=== PATIENT | male | born 1995 | race Caucasian/White ===

== ENCOUNTER 2018-01-15 09:37 | Emergency (ER) | payer MEDICAID ==
[~2018-01-15] VITALS: Ht 185.4 cm; Wt 81.8 kg
[~2018-01-15 09:37] MED LIST: DIVA-81 PO; NO HOME MEDS
[2018-01-15 09:40] VITALS: BP 170/86
[2018-01-15 10:39] LABS: BASOPHILS % (AUTO) 0.4 % (0-1); EOSINOPHILS # (AUTO) 0.1 X10'3 (0-0.9); HEMOGLOBIN 14.2 g/dl (14.0-17.9); LYMPHOCYTES # (AUTO) 1.3 X10'3 (1.1-4.8); LYMPHOCYTES % (AUTO) 19.6 % (21-51); MEAN CORPUSCULAR HGB CONC 33.8 % (33.0-36.5); MEAN CORPUSCULAR VOLUME 91.9 FL (78-98); MEAN PLATELET VOLUME 8.1 FL (7.4-10.4); MONOCYTES # (AUTO) 0.3 X10'3 (0-0.9); MONOCYTES % (AUTO) 5.1 % (2-12); NEUTROPHILS # (AUTO) 4.8 X10'3 (1.8-7.7); NEUTROPHILS % (AUTO) 73.9 % (42-75); PLATELET COUNT 218 X10'3 (140-440); RED BLOOD COUNT 4.57 X10'6 (4.70-6.10); RED CELL DISTRIBUTION WIDTH 13.1 % (11.5-14.5); WHITE BLOOD COUNT 6.4 X10'3 (4.5-11.0)
[2018-01-15 10:54] LABS: ALANINE AMINOTRANSFERASE 32 U/L (12-78); ALBUMIN 4.3 G/DL (3.4-5.0); ALBUMIN/GLOBULIN RATIO 1.4 (1.1-1.5); ALKALINE PHOSPHATASE 45 IU/L (46-116); ANION GAP 11 (8-16); ASPARTATE AMINO TRANSFERASE 41 U/L (10-37); BILIRUBIN,TOTAL 0.4 MG/DL (0.1-1.0); BLOOD UREA NITROGEN 9 MG/DL (7-18); BUN/CREATININE RATIO 13.8 (5.4-32.0); CALCIUM 8.6 MG/DL (8.5-10.1); CHLORIDE 102 MMOL/L (99-107); CREATININE 0.65 MG/DL (0.60-1.10); GLUCOSE 85 MG/DL (70-104); POTASSIUM 3.6 MMOL/L (3.5-5.1); SODIUM 141 MMOL/L (135-145); TOTAL CARBON DIOXIDE 28.1 MMOL/L (24-32); TOTAL PROTEIN 7.3 G/DL (6.4-8.2); eGFR > 90 ML/MIN
[2018-01-15 11:01] LABS: CLARITY,URINE CLEAR (Clear); COLOR,URINE YELLOW (Yellow); GLUCOSE, URINE NEGATIVE (Neg); KETONES,URINE NEGATIVE (Neg); LEUKOCYTE ESTERASE ,URINE NEGATIVE (Neg); NITRITES, URINE NEGATIVE (Neg); OCCULT BLOOD,URINE NEGATIVE (Neg); PROTEIN,URINE NEGATIVE (Neg)
[2018-01-15 11:03] LABS: ETHANOL 0.013 GM/DL (0.0-0.010)
[2018-01-15 11:03] LABS: UA COLLECTION TYPE CLN CATCH MIDSTREAM
[2018-01-15 11:04] LABS: VALPROATE < 3.0 UG/ML (50-100)
[2018-01-15 11:17] LABS: URINE AMPHETAMINE SCREEN NEGATIVE (Neg); URINE BARBITUATE SCREEN NEGATIVE (Neg); URINE BENZODIAZEPINES SCREEN NEGATIVE (Neg); URINE CANNABINOID SCREEN POSITIVE (Neg); URINE COCAINE SCREEN NEGATIVE (Neg); URINE METHADONE SCREEN NEGATIVE (Neg); URINE OPIATE SCREEN NEGATIVE (Neg); URINE PHENCYCLIDINE SCREEN NEGATIVE (Neg)
== END 2018-01-15 14:04 | disposition home or self-care (01) ==
LOC: ER 09:38
DX: F20.9 Schizophrenia, unspecified (principal); F31.9 Bipolar disorder, unspecified; F12.90 Cannabis use, unspecified, uncomplicated; Z88.8 Allergy status to other drugs, medicaments and biological substances
CPT/HCPCS: 36415; 80053; 80164; 80305; 80320; 81003; 84443; 85025; 99284

== ENCOUNTER 2018-01-31 22:26 | Emergency (ER) | payer MEDICAID ==
[~2018-01-31] VITALS: Ht 185.4 cm; Wt 70.0 kg
[2018-01-31 22:28] VITALS: BP 137/75
[2018-01-31 23:10] LABS: BASOPHILS # (AUTO) 0.1 X10'3 (0-0.2); BASOPHILS % (AUTO) 0.6 % (0-1); EOSINOPHILS # (AUTO) 0.3 X10'3 (0-0.9); EOSINOPHILS % (AUTO) 2.3 % (0-6); HEMATOCRIT 41.6 % (42.0-52.0); LYMPHOCYTES # (AUTO) 1.3 X10'3 (1.1-4.8); LYMPHOCYTES % (AUTO) 11.9 % (21-51); MEAN CORPUSCULAR HEMOGLOBIN 31.3 PG (27.0-31.0); MEAN CORPUSCULAR HGB CONC 33.5 % (33.0-36.5); MEAN CORPUSCULAR VOLUME 93.3 FL (78-98); MONOCYTES # (AUTO) 0.9 X10'3 (0-0.9); MONOCYTES % (AUTO) 8.4 % (2-12); NEUTROPHILS # (AUTO) 8.3 X10'3 (1.8-7.7); NEUTROPHILS % (AUTO) 76.8 % (42-75); PLATELET COUNT 203 X10'3 (140-440); RED BLOOD COUNT 4.46 X10'6 (4.70-6.10); RED CELL DISTRIBUTION WIDTH 14.1 % (11.5-14.5); WHITE BLOOD COUNT 10.9 X10'3 (4.5-11.0)
[2018-01-31 23:26] LABS: ALANINE AMINOTRANSFERASE 59 U/L (12-78); ALBUMIN/GLOBULIN RATIO 1.3 (1.1-1.5); ALKALINE PHOSPHATASE 46 IU/L (46-116); ANION GAP 7 (8-16); ASPARTATE AMINO TRANSFERASE 53 U/L (10-37); BILIRUBIN,TOTAL 0.4 MG/DL (0.1-1.0); BLOOD UREA NITROGEN 18 MG/DL (7-18); BUN/CREATININE RATIO 19.6 (5.4-32.0); CALCIUM 8.7 MG/DL (8.5-10.1); CHLORIDE 107 MMOL/L (99-107); CREATININE 0.92 MG/DL (0.60-1.10); GLUCOSE 107 MG/DL (70-104); POTASSIUM 3.7 MMOL/L (3.5-5.1); SODIUM 142 MMOL/L (135-145); TOTAL CARBON DIOXIDE 27.8 MMOL/L (24-32); eGFR > 90 ML/MIN
[2018-01-31 23:36] LABS: ETHANOL < 0.010 GM/DL (0.0-0.010)
== END 2018-01-31 23:55 | disposition home or self-care (01) ==
LOC: ER 22:27
DX: S60.811A Abrasion of right wrist, initial encounter (principal); K02.9 Dental caries, unspecified; F12.90 Cannabis use, unspecified, uncomplicated; F17.200 Nicotine dependence, unspecified, uncomplicated; F32.9 Major depressive disorder, single episode, unspecified; F20.9 Schizophrenia, unspecified; Z88.8 Allergy status to other drugs, medicaments and biological substances; Z79.899 Other long term (current) drug therapy; X58.XXXA Exposure to other specified factors, initial encounter; Y93.89 Activity, other specified; Y92.89 Other specified places as the place of occurrence of the external cause; Y99.8 Other external cause status
CPT/HCPCS: 36415; 80053; 80320; 84443; 85025; 99284

== ENCOUNTER 2018-02-01 11:29 | Emergency (ER) | payer MEDICAID ==
[~2018-02-01] VITALS: Ht 185.4 cm; Wt 75.0 kg
[2018-02-01 12:15] LABS: CLARITY,URINE CLEAR (Clear); COLOR,URINE YELLOW (Yellow); GLUCOSE, URINE NEGATIVE (Neg); KETONES,URINE TRACE mg/dl (Neg); LEUKOCYTE ESTERASE ,URINE NEGATIVE (Neg); NITRITES, URINE NEGATIVE (Neg); OCCULT BLOOD,URINE NEGATIVE (Neg); PROTEIN,URINE 30 mg/dl (Neg); UROBILINOGEN,URINE 0.2 E.U/dL (0.2-1.0)
[2018-02-01] MEDS ORDERED: diphenhydrAMINE 50 mg/ml inj IM ONE (12:15)
[2018-02-01] MEDS ORDERED: LORazepam 2 mg/ml vial IM ONE (12:15)
[2018-02-01 12:17] LABS: UA COLLECTION TYPE CLN CATCH MIDSTREAM
[2018-02-01] MEDS: LORazepam 1 MG tablet PO PRN (12:18)
[2018-02-01 12:20] LABS: ALANINE AMINOTRANSFERASE 63 U/L (12-78); ALBUMIN 4.2 G/DL (3.4-5.0); ALBUMIN/GLOBULIN RATIO 1.3 (1.1-1.5); ALKALINE PHOSPHATASE 48 IU/L (46-116); ANION GAP 8 (8-16); ASPARTATE AMINO TRANSFERASE 50 U/L (10-37); BILIRUBIN,TOTAL 0.4 MG/DL (0.1-1.0); BLOOD UREA NITROGEN 14 MG/DL (7-18); BUN/CREATININE RATIO 19.2 (5.4-32.0); CALCIUM 8.9 MG/DL (8.5-10.1); CHLORIDE 104 MMOL/L (99-107); CREATININE 0.73 MG/DL (0.60-1.10); GLUCOSE 89 MG/DL (70-104); POTASSIUM 3.8 MMOL/L (3.5-5.1); SODIUM 140 MMOL/L (135-145); TOTAL CARBON DIOXIDE 28.2 MMOL/L (24-32); TOTAL PROTEIN 7.5 G/DL (6.4-8.2); eGFR > 90 ML/MIN
[2018-02-01 12:26] LABS: URINE AMPHETAMINE SCREEN NEGATIVE (Neg); URINE BARBITUATE SCREEN NEGATIVE (Neg); URINE BENZODIAZEPINES SCREEN NEGATIVE (Neg); URINE CANNABINOID SCREEN POSITIVE (Neg); URINE COCAINE SCREEN NEGATIVE (Neg); URINE METHADONE SCREEN NEGATIVE (Neg); URINE OPIATE SCREEN NEGATIVE (Neg); URINE PHENCYCLIDINE SCREEN NEGATIVE (Neg)
[2018-02-01 12:36] LABS: BACTERIA,URINE FEW /HPF (Neg); MUCUS STRANDS MANY /LPF (Neg); RBC,URINE NONE SEEN /HPF (0-2); SQUAMOUS EPITHELIAL CELL,UR FEW /LPF (FEW)
[2018-02-01] MEDS ORDERED: OLANZapine **IM** 10 mg inj. IM ONE (13:05)
[2018-02-01 13:33] LABS: BASOPHILS % (AUTO) 0.4 % (0-1); EOSINOPHILS # (AUTO) 0.2 X10'3 (0-0.9); EOSINOPHILS % (AUTO) 2.5 % (0-6); HEMATOCRIT 42.8 % (42.0-52.0); HEMOGLOBIN 14.7 g/dl (14.0-17.9); LYMPHOCYTES # (AUTO) 1.8 X10'3 (1.1-4.8); LYMPHOCYTES % (AUTO) 21.4 % (21-51); MEAN CORPUSCULAR HEMOGLOBIN 31.4 PG (27.0-31.0); MEAN CORPUSCULAR HGB CONC 34.4 % (33.0-36.5); MEAN CORPUSCULAR VOLUME 91.3 FL (78-98); MEAN PLATELET VOLUME 8.8 FL (7.4-10.4); MONOCYTES # (AUTO) 1.1 X10'3 (0-0.9); MONOCYTES % (AUTO) 12.9 % (2-12); NEUTROPHILS # (AUTO) 5.2 X10'3 (1.8-7.7); NEUTROPHILS % (AUTO) 62.8 % (42-75); PLATELET COUNT 217 X10'3 (140-440); RED BLOOD COUNT 4.68 X10'6 (4.70-6.10); RED CELL DISTRIBUTION WIDTH 13.8 % (11.5-14.5); WHITE BLOOD COUNT 8.3 X10'3 (4.5-11.0)
[2018-02-01 15:13] LABS: ETHANOL < 0.010 GM/DL (0.0-0.010)
[2018-02-02] MEDS: LORazepam 1 MG tablet PO PRN (05:35)
[2018-02-02 05:47] VITALS: BP 118/84
[2018-02-02] MEDS ORDERED: diphenhydrAMINE 25mg capsule PO ONE (06:45)
[2018-02-02] MEDS ORDERED: LORazepam 1 MG tablet PO ONE (06:45)
[2018-02-02] MEDS: OLANZapine 2.5MG tablet PO SCH ×2 (08:03→11:25)
[2018-02-03] MEDS ORDERED: OLANZapine 2.5MG tablet PO SCH (08:00)
== END 2018-02-02 11:30 ==
LOC: ER 11:30
DX: F23 Brief psychotic disorder (principal); F31.9 Bipolar disorder, unspecified; F12.90 Cannabis use, unspecified, uncomplicated; Z98.890 Other specified postprocedural states; Z88.8 Allergy status to other drugs, medicaments and biological substances; Z79.899 Other long term (current) drug therapy; Z88.5 Allergy status to narcotic agent
CPT/HCPCS: 36415; 80053; 80305; 80320; 81001; 85025; 87088; 96372; 99285; J1200; J2060; Q0163

== ENCOUNTER 2019-10-29 08:07 | Inpatient (IN) | payer MEDICAID ==
[~2019-10-29] VITALS: Ht 185.4 cm; Wt 92.0 kg
[~2019-10-29 08:07] MED LIST changes: +ARIP5TAB14 PO; +CHOL50004 PO; +CLON-514 PO; -DIVA-81 PO; +LIT300C PO; +NICO-731 TOP; -NO HOME MEDS; +TEMA15CA PO
[2019-10-29] MEDS ORDERED: loperamide 2mg capsule PO PRN (18:45)
[2019-10-29] MEDS ORDERED: LORazepam 1 MG tablet PO PRN (18:45)
[2019-10-29] MEDS ORDERED: acetaminophen 325mg tablet PO PRN (18:45)
[2019-10-29] MEDS ORDERED: traZODone 50mg tablet PO PRN (18:45)
[2019-10-29] MEDS ORDERED: magnesium hydroxide 30ml (MOM) UD suspension PO PRN (18:45)
[2019-10-29 19:52] VITALS: BP 145/85
[2019-10-29] MEDS ORDERED: DIVA-81 PO (20:06)
[2019-10-29] MEDS ORDERED: CLOM25CA10 PO (20:06)
[2019-10-29] MEDS ORDERED: HYDR50CA PO (20:06)
[2019-10-29] MEDS ORDERED: ZOLP5TAB2 PO (20:06)
[2019-10-29] MEDS ORDERED: IBUP-1984 PO (20:06)
[2019-10-29] MEDS ORDERED: LITH150C8 PO (20:06)
[2019-10-29] MEDS ORDERED: DIPH25CA83 PO (20:06)
[2019-10-29] MEDS ORDERED: zolpidem 5mg tablet PO PRN (20:30)
[2019-10-29] MEDS ORDERED: diphenhydrAMINE 25mg capsule PO PRN (20:30)
[2019-10-29] MEDS ORDERED: divalproex sod 250mg ER (24-hour) tablet PO ONE (20:35)
[2019-10-29] MEDS ORDERED: lithium carbonate 150mg capsule PO ONE (20:35)
[2019-10-29] MEDS: CLOMIPRAMINE 25 MG PO SCH (21:31)
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
[2019-10-30 07:00] VITALS: BP 144/81
[2019-10-30] MEDS: divalproex sod 250mg ER (24-hour) tablet PO SCH ×2 (08:00→20:36)
[2019-10-30] MEDS: lithium carbonate 150mg capsule PO SCH ×2 (08:02→20:35)
--- NOTE | 2019-10-30 10:00 | NUR ---
Group Therapy: Process Group This Clinicians goal for this process group were as follows: (1) Ask scaling questions about Patients current anxiety, depression, and irritability symptoms as a check-in. (2) Provide psychoeducation on emotional and situational stressors. (3) Discuss thoughts and feelings that patients experience when they have experienced an emotional and/or situational stressor. (4) Provide psychoeducation on interventions, as actions patients can take to reduce feelings of emotional escalation caused by situational and emotional stressors. (5) Process Patients thoughts and reflections on this topic within the group milieu. Patient identified experiencing the following levels of anxiety, depression, and anger/irritability while present in the group milieu. Anxiety: 04/26 Depression: 04/26 Anger/irritability: 04/26 Patient presented as open and cooperative within the group milieu. Patient was dressed in [facility] scrubs within the milieu. Patient's thought content was clear and concrete. Patient's thought process was clear. On one occasion during the discussion on stressful situations and interventions that one could utilize to reduce unwanted mental health symptoms, this Clinician was sharing different feelings that one might experience when one feels hunger. Patient refused to acknowledge that several feelings that this Clinician had wrote on the board were actually feelings. This Clinician made several attempts to clarify that the feelings that he wrote on the board were, in fact, feelings and not thoughts. Patient continued to deny that they were feelings, to which this Clinician responded "We'll have to agree to disagree." Patient presented as verbally engaged and nonobtrusive within the milieu. He frequently shari his hand to make comments during discussion in the process group. Marcus Kennedy MA, [employer] Addendum: 10/31/19 at 0823 by Marcus Kennedy Amended: Links added.
[2019-10-30 12:54] LABS: CHOL/HDL RATIO 2.7 (0.00-4.99); CHOLESTEROL 122 MG/DL (0-200); HDL CHOLESTEROL 45 MG/DL (35-60); LDL CHOLESTEROL 64 MG/DL (50-100); TRIGLYCERIDES 102 MG/DL (20-135)
[2019-10-30 12:58] LABS: HEMOGLOBIN A1C 5.3 % (4.5-6.2)
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
[2019-10-30] MEDS: CLOMIPRAMINE 25 MG PO SCH (20:37)
[2019-10-30 20:51] VITALS: BP 144/86
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
[2019-10-31 08:00] VITALS: BP 126/85
[2019-10-31] MEDS: divalproex sod 250mg ER (24-hour) tablet PO SCH ×2 (08:23→20:57)
[2019-10-31] MEDS: lithium carbonate 150mg capsule PO SCH ×2 (08:24→20:58)
--- NOTE | 2019-10-31 10:00 | NUR ---
Group Therapy: Process Group This Clinicians goals for this process group were as follows: (1) Ask scaling questions about Patients current anxiety, depression, and irritability symptoms as a check-in. (2) Share with Patients psychoeducation about the importance of being able to identify safe, and supportive people who can assist them with their mental and emotional needs. (3) Share psychoeducation on interpersonal boundaries and considerations to assist Patients in developing the ability to discern which groups and individuals will be helpful in assisting them during times of emotional escalation and crisis. (4) Engage Patients in discussion of the topics discussed within the group milieu. Patient identified experiencing the following levels of anxiety, depression, and anger/irritability while present in the group milieu. Anxiety: 04/26 Depression: 04/26 Anger/irritability: 04/26 Patient presented as open and cooperative within the group milieu. Patient was dressed in green hospital scrubs within the milieu. Patient's thought content was clear and concrete. Patient's thought process was clear, coherent, and largely linear, with occasional circumstantial thinking--Patient verbalized that he had difficultly succinctly articulating his points on occasion. Patient presented as verbally engaged and nonobtrusive during the discussion on awareness of interpersonal boundaries as it relates to identifying safe and supportive people with whom one could share specifics of their mental health situation. Patient verbalized his belief that the acquaintance, neighbor, coworker "[place]" was one of the most essential in knowing what to say about your mental health situation as these conversations could reveal whether or not someone could become more of an advocate for them in their mental health journey, or if they revealed that a person could not be trusted with this information. Patient shared that even with therapists, or medical support specialist he will often ask questions or present himself in a way as if he were "testing them" to see if they actually cared, or if they would do what they say they are going to do. When asked who Patient trusted most in sharing elements of his mental health situation, Patient stated, "Myself." Marcus Kennedy MA, [facility] Addendum: 10/31/19 at 1150 by Marcus ARANA Amended: Links added.
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
[2019-10-31 19:00] VITALS: BP 130/81
[2019-10-31] MEDS: CLOMIPRAMINE 25 MG PO SCH (20:59)
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
[2019-11-01 08:00] VITALS: BP 135/83
[2019-11-01] MEDS: lithium carbonate 150mg capsule PO SCH ×2 (08:12→21:15)
[2019-11-01] MEDS: divalproex sod 250mg ER (24-hour) tablet PO SCH ×2 (08:12→21:32)
--- NOTE | 2019-11-01 10:00 | NUR ---
Group Therapy: Process Group This Clinicians goals for this process group were as follows: (1) Ask scaling questions about Patients current anxiety, depression, and irritability symptoms as a check-in. (2) Share psychoeducation about automatic thoughts and cognitive distortions. (3) Share psychoeducation on CBT thought-stopping and, thought-reframing. (4) Discuss strategies for identifying negative, unhelpful, and/or irrational thoughts as quickly as possible to avoid unwanted escalation of mental health symptoms. (5) Process Clients thoughts and reflections on this topic within the group milieu. Patient identified experiencing the following levels of anxiety, depression, and anger/irritability while present in the group milieu. Anxiety: 0/10 Depression: 0/10 Anger/irritability: 0/10 Patient presented as open and cooperative within the group milieu. Patient was dressed in green hospital scrubs within the milieu. Patient's thought content was clear, and concrete. Patient's thought process was clear, coherent and linear. This Clinician observed some circumstantial thinking, as Patient occasionally took a bit of time to conclude his points. Patient presented as verbally engaged and nonobtrusive within the group milieu. He frequently made insightful comments about identifying cognitive distortions and acknowledged the role they played in setting off cascades of subsequent thoughts, feelings and actions that could lead to the increase in unwanted mental health symptoms. Patient spent time seated next to another Patient, engaged in drawing and coloring activities, which was not disruptive to the overall group process. Marcus eKnnedy MA, VICKY Addendum: 11/04/19 at 0806 by Marcus Kennedy SS Amended: Links added.
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
[2019-11-01 20:00] VITALS: BP 134/94
[2019-11-01] MEDS: CLOMIPRAMINE 25 MG PO SCH (21:14)
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
[2019-11-02 08:00] VITALS: BP 131/79
[2019-11-02] MEDS: lithium carbonate 150mg capsule PO SCH ×2 (08:51→21:00)
[2019-11-02] MEDS: divalproex sod 250mg ER (24-hour) tablet PO SCH ×2 (08:51→21:00)
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
[2019-11-02 20:15] VITALS: BP 136/76
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
[2019-11-03 07:58] VITALS: BP 132/82
[2019-11-03] MEDS: lithium carbonate 150mg capsule PO SCH ×2 (08:14→20:14)
[2019-11-03] MEDS: divalproex sod 250mg ER (24-hour) tablet PO SCH ×2 (08:14→20:13)
--- NOTE | 2019-11-03 10:01 | NUR ---
Initial: Pt admit w/ schizoaffective disorder bipolar type hx homeless not taking meds w/ poor dentition per MD. PO 75-100% avg regular diet meeting needs. LBM 11/01. No nutrition concerns at this time. Will continue to monitor. Rec: 1. continue regular diet 2. bowel care as needed 3. wt per rx Addendum: 11/03/19 at [address] Amended: Links added.
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
[2019-11-03 20:00] VITALS: BP 142/86
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
[2019-11-04 08:00] VITALS: BP 106/55
[2019-11-04] MEDS: lithium carbonate 150mg capsule PO SCH ×2 (08:05→20:23)
[2019-11-04] MEDS: divalproex sod 250mg ER (24-hour) tablet PO SCH ×2 (08:05→20:23)
--- NOTE | 2019-11-04 10:00 | NUR ---
Group Therapy: Process Group This Clinicians goals for this process group were as follows: (1) Ask scaling questions about Patients current anxiety, depression, and irritability symptoms as a check-in. (2) Share psychoeducation about self-efficacy, and ego strength. (3) Provide psychoeducation on [email or web address] Drama triangleVictim, Persecutor, Rescuer dynamic. (4) Share psychoeducation on developing positive ego strengthpositive affirmations, positive self-talk, transitioning from a victim of circumstances to a survivor of circumstances. (5) Process Clients thoughts and reflections on this topic within the group milieu. Patient presented as open and cooperative within the group milieu. He wore personal, nondescript clothing--a dark blue printed t-shirt, and black jony jeans--that were appropriate within the milieu. Patient was not present at the beginning of the process group, therefore he did not provide answers to the scaling questions about his subjective levels of anxiety, depression, and anger/irritability. Patient's thought content was clear and concrete. Patient's thought process was clear, coherent, and linear. He made well-timed attempts at humor, which this Clinician appreciated as such. Patient was verbally engaged and nonobtrusive within the group milieu. He articulated an understanding of this Clinician's points when he articulated the importance of transitioning from a place of low ego strength, to positive ego strength; however, he verbalized his belief in the person's ability to transcend the ego, which this Clinician acknowledged as being a tenet that was common in certain spiritual traditions. Marcus Kennedy MA, WEB ANALYST Addendum: 11/04/19 at 1154 by Marcus Kennedy Amended: Links added.
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
[2019-11-04 20:44] VITALS: BP 135/73
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
[2019-11-05 08:00] VITALS: BP 129/64
[2019-11-05] MEDS: divalproex sod 250mg ER (24-hour) tablet PO SCH ×2 (08:20→20:20)
[2019-11-05] MEDS: lithium carbonate 150mg capsule PO SCH ×2 (08:20→20:23)
--- NOTE | 2019-11-05 13:35 | NUR ---
PLACEMENT Faxed placement packet to [facility] office. VICKY Madera
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
[2019-11-05] MEDS: lactose-reduced food (Ensure High Protein) 237ml bottle PO SCH (18:00)
[2019-11-05 20:00] VITALS: BP 140/88
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
[2019-11-06] MEDS: lactose-reduced food (Ensure High Protein) 237ml bottle PO SCH ×3 (08:00→18:32)
[2019-11-06 08:05] VITALS: BP 117/74
[2019-11-06] MEDS: divalproex sod 250mg ER (24-hour) tablet PO SCH ×2 (08:53→20:26)
[2019-11-06] MEDS: lithium carbonate 150mg capsule PO SCH ×2 (08:54→20:25)
--- NOTE | 2019-11-06 10:00 | NUR ---
Group Therapy: Process Group This Clinicians goals for this process group were as follows: (1) Ask scaling questions about Patients current anxiety, depression, and irritability symptoms as a check-in. (2) Share psychoeducation about the importance of being able to identify regular activities, support people, and thoughts (Anchors) that contribute to mental health well-being and stability. (3) Share psychoeducation about how the gradual removal of said activities, people and behaviors may lead to the erosion of mental well-being and stability. (4) Encourage Patients to identify support anchors that they need to maintain in their life that will promote their mental and emotional well-being. (5) Engage Patients in discussion of the topics shared within the group milieu. Patient identified experiencing the following levels of anxiety, depression, and anger/irritability while present in the group milieu. Anxiety: 0/10 Depression: 0/10 Anger/irritability: 0/10 Patient presented as open and cooperative within the group milieu. Patient was dressed in nondescript, personal clothing that were appropriate within the milieu. Patient's thought content was clear, and concrete. Patient's thought process was clear, coherent, and linear. Patient maintained sustained eye contact with this Clinician. His speech was WNL. He presented in calm, euthymic mood with congruent affect. Patient presented as verbally engaged and nonobtrusive within the group milieu. Patient made numerous insight comments about the importance of having a, "Plan A, Plan B... etc." in identifying interventions that one could regularly utilize to stay grounded in a place of optimal mental health. He also acknowledged the danger of slowly stopping the regular practice of these interventions as it could lead to decompensation in the context of one's mental/behavioral health. Additionally, Patient shared that it was important for one to look to "Identify new anchors,"--or, new interventions that could further assist a person in maintaining optimal mental health. Marcus Kennedy MA, ENGINE BUILDER Addendum: 11/06/19 at 1137 by Marcus ARANA Amended: Links added.
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
[2019-11-06 20:00] VITALS: BP 135/77
[2019-11-07] MEDS ORDERED: hydrOXYzine 25 MG tablet PO PRN ×2 (01:45→17:30)
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
[2019-11-07] MEDS: divalproex sod 250mg ER (24-hour) tablet PO SCH ×2 (07:43→20:35)
[2019-11-07] MEDS: lithium carbonate 150mg capsule PO SCH ×2 (07:44→20:35)
[2019-11-07 08:00] VITALS: BP 116/84
[2019-11-07] MEDS: lactose-reduced food (Ensure High Protein) 237ml bottle PO SCH ×3 (08:12→17:49)
--- NOTE | 2019-11-07 10:00 | NUR ---
Group Therapy: Process Group This Clinicians goal for this process group were as follows: (1) Share psychoeducation about core beliefs and how these beliefs shapes how one views reality. (2) Compare and contrast how people with different core beliefs might interpret an identical situation differently. (3) Discuss how changing negative core beliefs to more balanced, helpful, and rational alternatives can lead to improved behaviors and mood. (4) Process Clients thoughts and reflections on this topic within the group milieu. Patient presented as open and cooperative within the group milieu. Patient was dressed in personal, nondescript clothing that were appropriate within the milieu. Patient's thought content was clear and concrete. Patient shared during initial check-ins that he was trying to get a hold of his Conservator regarding his placement options between IMDs and board and cares. Patient expressed displeasure that he did not appear to have more of a personal choice regarding where he would be placed. Patient's thought process was clear, coherent, and linear. Patient presented as nonobtrusive and verbally engaged during the process group. Patient frequently made insightful comments regarding how differences in one core beliefs could alter the way one thinks, feels, and acts in different situations. Patient was keen on pointing out the situational nature of how one's core beliefs shape how one reacts to given situations. Marcus Kennedy MA, VICKY Addendum: 11/08/19 at 0828 by Marcus Kennedy SS Amended: Links added.
--- NOTE | 2019-11-07 11:25 | NUR ---
PLACEMENT UPDATE Yfn's packet is currently at [facility], and [facility]. VICKY [place]
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
[2019-11-07 20:11] VITALS: BP 149/76
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
[2019-11-08 08:00] VITALS: BP 120/61
[2019-11-08] MEDS: lactose-reduced food (Ensure High Protein) 237ml bottle PO SCH ×3 (08:41→17:51)
[2019-11-08] MEDS: divalproex sod 250mg ER (24-hour) tablet PO SCH ×2 (08:43→21:08)
[2019-11-08] MEDS: lithium carbonate 150mg capsule PO SCH ×2 (08:43→21:08)
--- NOTE | 2019-11-08 10:00 | NUR ---
Group Therapy: Process Group This Clinicians goals for this process group were as follows: (1) Ask scaling questions about patients current anxiety, depression, and irritability symptoms as a check-in. (2) Share psychoeducation about emotional relaxation techniques with patients, including information on: mindfulness, meditation controlled breathing, progressive muscle relaxation, guided visualization. (3) Model and practice controlled breathing, progressive muscle relaxation, and guided visualization with patients within the group milieu. (4) Process patients comments and reflections on the before-mentioned activities after they have participated in them. Patient identified experiencing the following levels of anxiety, depression, and anger/irritability while present in the group milieu. Anxiety: 04/26 Depression: 04/26 Anger/irritability: 05/27 Patient presented as open and cooperative within the group milieu. Patient was dressed in personal, nondescript clothing that were appropriate within the milieu. He wore a blue printed t-shirt and jony blue jeans. Patient's thought process was clear and concrete. Patient's thought process was largely clear, coherent, and linear. However, on occasion, it was this Clinician's impression that some of Patient's speech was circumstantial. For example, during a discussion on identifying a memory that could serve as a "safe, happy, or grounding" place to practice guided visualization, Patient initially appeared to have difficulty describing a specific place--instead saying that when he is at places where there appears to be good symmetry, "Like a square," but that he really only knows if there is good symmetry when he is actually there. Later, Patient described playing video games as an activity that was calming to him. This Clinician did not observe Patient responding to any internal stimuli during session. Patient was verbally engaged, nonobtrusive and actively engaged in the practice of controlled breathing, progressive muscle relaxation, and guided visualization activities that were practiced during today's process group. Marcus Kennedy MA, USABILITY STRATEGIST Addendum: 11/08/19 at 1144 by Marcus Kennedy SS Amended: Links added.
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
[2019-11-08 20:28] VITALS: BP 128/74
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
[2019-11-09 08:00] VITALS: BP 123/73
[2019-11-09] MEDS: divalproex sod 250mg ER (24-hour) tablet PO SCH ×2 (08:05→20:38)
[2019-11-09] MEDS: lithium carbonate 150mg capsule PO SCH ×2 (08:05→20:39)
[2019-11-09] MEDS: lactose-reduced food (Ensure High Protein) 237ml bottle PO SCH ×3 (08:57→18:07)
--- NOTE | 2019-11-09 11:16 | NUR ---
Reassessment: Pt with slightly fluctuating PO intake however overall averaging 75-100% PO intake on regular diet while receiving double protein TID. Pt receiving an Ensure High Protein TID per MD and documented with 100% PO intake of ONS. Pt meeting nutrient needs. [facility] 11/07. No further nutrition intervention warranted at this time. Will continue to follow. Rec: 1. Continue regular diet with double protein TID per diet order 2. Ensure High Protein TID per MD 3. Bowel care PRN 4. Scaled weights per rx Addendum: 11/09/19 at [address] Amended: Links added.
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
[2019-11-09 19:43] VITALS: BP 112/82
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
[2019-11-10] MEDS: lactose-reduced food (Ensure High Protein) 237ml bottle PO SCH ×3 (07:00→18:00)
[2019-11-10] MEDS: divalproex sod 250mg ER (24-hour) tablet PO SCH ×2 (07:32→21:02)
[2019-11-10] MEDS: lithium carbonate 150mg capsule PO SCH ×2 (07:32→21:02)
[2019-11-10 08:00] VITALS: BP 115/77
[2019-11-10 09:02] VITALS: BP 115/77
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
[2019-11-10 20:04] VITALS: BP 131/78
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
[2019-11-11 08:00] VITALS: BP 114/60
[2019-11-11] MEDS: lithium carbonate 150mg capsule PO SCH ×2 (08:08→20:35)
[2019-11-11] MEDS: divalproex sod 250mg ER (24-hour) tablet PO SCH ×2 (08:09→20:35)
[2019-11-11] MEDS: lactose-reduced food (Ensure High Protein) 237ml bottle PO SCH ×3 (08:09→18:00)
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
[2019-11-11 20:18] VITALS: BP 149/83
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
[2019-11-12 08:00] VITALS: BP 123/68
[2019-11-12] MEDS: divalproex sod 250mg ER (24-hour) tablet PO SCH ×2 (08:11→20:42)
[2019-11-12] MEDS: lithium carbonate 150mg capsule PO SCH ×2 (08:11→20:42)
[2019-11-12] MEDS: lactose-reduced food (Ensure High Protein) 237ml bottle PO SCH ×3 (08:14→18:44)
--- NOTE | 2019-11-12 10:00 | NUR ---
Group Therapy: Process Group This Clinicians goal for this process group were as follows: (1) Ask scaling questions about Patients current anxiety, depression, and irritability symptoms as a check-in. (2) Provide psychoeducation on differences between passive, passive-aggressive, assertive, and aggressive forms of communication. (3) Provide psychoeducation on fair fighting rules to illustrate principles of assertive communication. (4) Process Patients thoughts and reflections on this topic within the group milieu. Patient identified experiencing the following levels of anxiety, depression, and anger/irritability while present in the group milieu. Anxiety: 05/27 Depression: 05/27 Anger/irritability: 05/27 Patient was dressed in nondescript, personal clothing that were appropriate within the milieu. He wore a t-shirt with pineda and red patterns on it, and jony blue jeans. Patient's thought content was clear and concrete. His thought process was clear, coherent, and linear for the most part. However, Patient repeatedly voiced his frustration with the handout that this Clinician provided him on the differences between passive, aggressive, and assertive forms of communications. Patient vociferously emphasized his point that when to use these different forms of communication were so, "Situational," that it was his perception that the group was a "Waste of time." Initially, this Clinician attempted to minimize Patient's frustration and resistance by aligning with Patient by agreeing with him that communication is a, "situational" activity and that different communication styles may be called for in different situations. However Patient began disagreeing with every point that this Clinician was attempting to make, though this Clinician made it clear that he was only trying to share material that suggested the benefits of assertive communication, as opposed to passive, and aggressive communication. Eventually this Clinician asked Patient, "What would you suggest, then?" as an inquiry to what Patient wanted to do with the material being discussed, to which Patient responded, "Let's use a worksheet that doesn't have outdated information on it from the ." Patient's tone of voice was elevating during this time. At that time, this Clinician asked Patient to leave the group. He was escorted from the group milieu by milieu staff. Marcus Kennedy MA, CELL TECHNICIAN Addendum: 11/12/19 at 1155 by Marcus Kennedy SS Amended: Links added.
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
[2019-11-12 19:18] VITALS: BP 163/74
[2019-11-12 19:25] VITALS: BP 150/84
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
[2019-11-13] MEDS: divalproex sod 250mg ER (24-hour) tablet PO SCH ×2 (07:46→20:38)
[2019-11-13] MEDS: lithium carbonate 150mg capsule PO SCH ×2 (07:46→20:36)
[2019-11-13] MEDS: lactose-reduced food (Ensure High Protein) 237ml bottle PO SCH ×3 (07:53→18:08)
[2019-11-13 08:32] VITALS: BP 117/69
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
[2019-11-13 20:00] VITALS: BP 152/75
[2019-11-13] MEDS: carbamide peroxide 15ml bottle RIGHT EAR SCH (20:00)
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
[2019-11-14] MEDS: divalproex sod 250mg ER (24-hour) tablet PO SCH ×2 (07:34→20:20)
[2019-11-14] MEDS: lithium carbonate 150mg capsule PO SCH ×2 (07:34→20:20)
[2019-11-14 07:54] VITALS: BP 116/83
[2019-11-14] MEDS: carbamide peroxide 15ml bottle RIGHT EAR SCH ×2 (08:00→20:00)
--- NOTE | 2019-11-14 08:24 | NUR ---
Assisted Yfn with typing up a letter he had written for his conservator, Crystal. Scanned and emailed the letter to her. VICKY Madera
[2019-11-14] MEDS: lactose-reduced food (Ensure High Protein) 237ml bottle PO SCH ×3 (08:39→18:06)
--- NOTE | 2019-11-14 10:00 | NUR ---
Group Therapy: Process Group This Clinicians goal for this process group were as follows: (1) Ask scaling questions about patients current anxiety, depression, and irritability symptoms as a check-in. (2) Provide psychoeducation on grounding activities as a means to reduce the acuity of unwanted mental health symptoms. (3) Introduce mandalas as one such activity for group participation within the milieu. (4) Check-in with patients during the coloring activity to reinforce the importance of engaging in adaptive grounding activities. Patient identified experiencing the following levels of anxiety, depression, and anger/irritability while present in the group milieu. Anxiety: 04/26 Depression: 04/26 Anger/irritability: 04/26 Patient presented as open and cooperative within the group milieu. Patient was dressed in personal, nondescript clothing that were appropriate within the milieu. Patient's thought content was clear, and concrete. Patient's thought process was clear, coherent, and linear. Patient was present for the brief psychoeducation that this Clinician provided on grounding activities to reduce the acuity of one's mental health symptoms. This Clinician observed Patient casually interacting in conversation with one of the milieu staff while he was coloring his mandala, in an adaptive and appropriate way. On another occasion, Patient articulated his belief that everything in the universe was based on, "Philosophy," and that reality itself was only a philosophical construct that allows people to interact with one another. Patient presented as verbally engaged and nonobtrusive within the group milieu. He presented in calm, euthymic mood with congruent affect within the group milieu. Marcus Kennedy MA, RESIDENT SERVICE COORDINATOR Addendum: 11/14/19 at 1136 by Marcus Kennedy SS Amended: Links added.
--- NOTE | 2019-11-14 16:39 | NUR ---
PLACEMENT Faxed updated notes to [facility] office at their request. VICKY Madera
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
[2019-11-14 20:02] VITALS: BP 133/85
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
[2019-11-15 07:57] VITALS: BP 123/65
[2019-11-15] MEDS: carbamide peroxide 15ml bottle RIGHT EAR SCH ×2 (08:00→20:00)
[2019-11-15] MEDS: lithium carbonate 150mg capsule PO SCH ×2 (08:03→21:20)
[2019-11-15] MEDS: divalproex sod 250mg ER (24-hour) tablet PO SCH ×2 (08:04→21:20)
[2019-11-15] MEDS: lactose-reduced food (Ensure High Protein) 237ml bottle PO SCH ×3 (08:22→18:00)
--- NOTE | 2019-11-15 10:00 | NUR ---
Group Therapy: Process Group This Clinicians goals for this process group were as follows: (1) Ask scaling questions about Patients current anxiety, depression, and irritability symptoms as a check-in. (2) Share psychoeducation about emotional escalation as it relates to stress and negative symptoms, Fight, flight, freeze. (2) Provide psychoeducation on the STOPP acronym: Stop, Take a Breath, Observe the situation, Put things into perspective, and, Practice what works. (3) Share psychoeducation on principles of mindfulness and emotional relaxation techniques that Patients may utilize to reduce the acuity of unwanted emotional escalation. (5) Process Clients thoughts and reflections on this topic within the group milieu. Patient identified experiencing the following levels of anxiety, depression, and anger/irritability while present in the group milieu. Anxiety: 04/26 Depression: 04/26 Anger/irritability: 04/26 Patient presented as open and cooperative within the group milieu. Patient was dressed in person, nondescript clothing that were appropriate within the milieu. Patient's thought content was clear, and concrete. Patient's thought process was clear, coherent, and linear. This Clinician did not observe Patient responding to any internal stimuli during session. Patient presented as verbally engaged and nonobtrusive within the group milieu. Patient offered numerous insightful comments in the context of practices that one could utilize to reduce unwanted emotional escalation during the group discussion on the STOPP method of emotional deescalation. On one occasion, Patient went to his room and brought back a book by Jenny Saldivar, entitled, "Anger," and read a few excerpts from the book which were appropriate in the context of practicing strategies to reduce unwanted feelings of anger. Marcus Kennedy MA, ROUNDING MACHINE OPERATOR Addendum: 11/19/19 at 0811 by Marcus Kennedy SS Amended: Links added.
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
[2019-11-15 19:00] VITALS: BP 122/71
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
[2019-11-16] MEDS: divalproex sod 250mg ER (24-hour) tablet PO SCH ×2 (07:48→20:43)
[2019-11-16] MEDS: lithium carbonate 150mg capsule PO SCH ×2 (07:49→20:44)
[2019-11-16] MEDS: carbamide peroxide 15ml bottle RIGHT EAR SCH ×2 (07:49→20:00)
[2019-11-16 08:00] VITALS: BP 108/60
[2019-11-16] MEDS: lactose-reduced food (Ensure High Protein) 237ml bottle PO SCH ×3 (08:17→18:18)
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
[2019-11-16 19:00] VITALS: BP 131/82
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
[2019-11-17] MEDS: lithium carbonate 150mg capsule PO SCH ×2 (07:40→20:23)
[2019-11-17] MEDS: divalproex sod 250mg ER (24-hour) tablet PO SCH ×2 (07:41→20:23)
[2019-11-17] MEDS: lactose-reduced food (Ensure High Protein) 237ml bottle PO SCH ×3 (07:41→18:00)
[2019-11-17] MEDS: carbamide peroxide 15ml bottle RIGHT EAR SCH ×2 (07:43→20:00)
--- NOTE | 2019-11-17 09:18 | NUR ---
Reassessment: Pt PO 75-100% avg meals and ONS meeting needs. LBM 11/15. No nutrition concerns at this time. Will continue to monitor. Rec: 1. Continue regular diet with double protein TID per diet order 2. Ensure High Protein TID per MD 3. Bowel care PRN 4. Scaled weights per rx Addendum: 11/17/19 at [address] Amended: Links added.
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
[2019-11-17 20:00] VITALS: BP 173/90
[2019-11-17] MEDS: zolpidem 5mg tablet PO PRN (23:09)
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
[2019-11-18 07:43] VITALS: BP 114/54
[2019-11-18] MEDS: lactose-reduced food (Ensure High Protein) 237ml bottle PO SCH ×3 (08:00→17:11)
[2019-11-18] MEDS: carbamide peroxide 15ml bottle RIGHT EAR SCH ×2 (08:00→20:00)
[2019-11-18] MEDS: divalproex sod 250mg ER (24-hour) tablet PO SCH ×2 (08:42→20:18)
[2019-11-18] MEDS: lithium carbonate 150mg capsule PO SCH ×2 (08:42→20:18)
--- NOTE | 2019-11-18 13:19 | NUR ---
PUBLIC GUARDIAN Left message for [facility]fn's Public Guardian, Crystal (ph# [phone]), to request a dental appt. VICKY Madera Addendum: 11/18/19 at 1610 by Debbie Gilliland SS Crystal returned machine sign writer's call and reported she will work on getting a dental appt for Yfn. VICKY Madera
--- NOTE | 2019-11-18 16:54 | NUR ---
DENTAL APPOINTMENT Yfn has a dental appointment on 12/11/19 at 2:30 PM. He will get picked up around 1 PM as the appt is in [place]. VICKY Madera
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
[2019-11-18 20:51] VITALS: BP 135/79
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
[2019-11-19] MEDS: lithium carbonate 150mg capsule PO SCH ×2 (07:45→20:14)
[2019-11-19] MEDS: carbamide peroxide 15ml bottle RIGHT EAR SCH ×2 (07:46→20:00)
[2019-11-19] MEDS: divalproex sod 250mg ER (24-hour) tablet PO SCH ×2 (07:46→20:15)
[2019-11-19 08:00] VITALS: BP 138/75
[2019-11-19] MEDS: lactose-reduced food (Ensure High Protein) 237ml bottle PO SCH ×3 (08:23→18:07)
--- NOTE | 2019-11-19 10:00 | NUR ---
Group Therapy: Process Group This Clinicians goal for this process group were as follows: (1) Ask scaling questions about Patients current anxiety, depression, and irritability symptoms as a check-in. (2) Provide psychoeducation on emotional and situational stressors. (3) Discuss thoughts and feelings that patients experience when they have experienced an emotional and/or situational stressor. (4) Provide psychoeducation on interventions, as actions patients can take to reduce feelings of emotional escalation caused by situational and emotional stressors. (5) Process Patients thoughts and reflections on this topic within the group milieu. Patient identified experiencing the following levels of anxiety, depression, and anger/irritability while present in the group milieu. Anxiety: 04/26 Depression: 04/26 Anger/irritability: 04/26 Patient presented as open and cooperative within the group milieu. Patient was dressed in nondescript, personal clothing that were appropriate within the milieu. He wore a black printed t-shirt with blue, jony jeans. Patient's thought content was clear and concrete. Patient's thought process was mainly clear, coherent, and linear. Some of Patient's thinking was slightly circumstantial on occasion. This Clinician did not observe Patient responding to any internal stimuli during session. Patient presented as verbally engaged during the process group often making insightful comments about different thoughts and feelings that one might experience in reaction to a stressful situation, in addition to adaptive interventions that he might utilize in order to reduce the acuity of unwanted mental health symptoms. Patient presented as mildly intrusive as he engaged in certain episodes of crosstalk in the group milieu. Due to this, this Clinician engaged in multiple verbal prompts to the group as a whole in order to limit crosstalk. Marcus Kennedy MA, CREATIVE ARTS MUSIC THERAPIST Addendum: 11/19/19 at 1134 by Marcus Kennedy SS Amended: Links added.
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
[2019-11-19 19:30] VITALS: BP 148/77
[2019-11-19] MEDS: zolpidem 5mg tablet PO PRN (22:37)
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
[2019-11-20] MEDS: divalproex sod 250mg ER (24-hour) tablet PO SCH ×2 (07:47→21:25)
[2019-11-20] MEDS: lithium carbonate 150mg capsule PO SCH ×2 (07:47→21:26)
[2019-11-20] MEDS: carbamide peroxide 15ml bottle RIGHT EAR SCH ×2 (08:00→20:00)
[2019-11-20 08:04] VITALS: BP 124/78
[2019-11-20] MEDS: lactose-reduced food (Ensure High Protein) 237ml bottle PO SCH ×3 (08:20→18:04)
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
[2019-11-20 19:49] VITALS: BP 123/78
[2019-11-20] MEDS: zolpidem 5mg tablet PO PRN (22:00)
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
[2019-11-21] MEDS: divalproex sod 250mg ER (24-hour) tablet PO SCH ×2 (07:25→22:00)
[2019-11-21] MEDS: lithium carbonate 150mg capsule PO SCH ×2 (07:25→21:59)
[2019-11-21 08:00] VITALS: BP 126/80
[2019-11-21] MEDS: carbamide peroxide 15ml bottle RIGHT EAR SCH ×2 (08:00→20:00)
[2019-11-21] MEDS: lactose-reduced food (Ensure High Protein) 237ml bottle PO SCH ×3 (08:11→17:10)
--- NOTE | 2019-11-21 10:00 | NUR ---
Group Therapy: Process Group This Clinicians goals for this process group were as follows: (1) Ask scaling questions about Patients current anxiety, depression, and irritability symptoms as a check-in. (2) Share with Patients psychoeducation about the importance of being able to identify safe, and supportive people who can assist them with their mental and emotional needs. (3) Share psychoeducation on interpersonal boundaries and considerations to assist Patients in developing the ability to discern which groups and individuals will be helpful in assisting them during times of emotional escalation and crisis. (4) Engage Patients in discussion of the topics discussed within the group milieu. Patient identified experiencing the following levels of anxiety, depression, and anger/irritability while present in the group milieu. Anxiety: 04/26 Depression: 04/26 Anger/irritability: 04/26 Patient presented as open and cooperative within the group milieu. Patient was dressed in a dark, printed t-shirt with jony blue jeans that were appropriate within the milieu. Patient's thought content was clear, and concrete. Patient's thought process was clear, coherent, and linear. This Clinician did not observe Patient responding to any internal stimuli during session. On a couple different occasions, Patient walked over to a wall and did isometric pushups against the wall. He then did tricep squats, by lowering his body weight using a chair within the group milieu. He did two sets of these activities. Patient, otherwise, was nonobtrusive, and his behaviors was tolerated by the other patients within the milieu. Hence, this Clinician felt no need to tell Patient to refrain from these behaviors. This Clinician encouraged Patient to identify a positive and negative experience that he had experienced during the past couple of days. Patient reported that he grew tired of waking up to people, "Screaming," on the floor. As a positive, Patient reported that he was hopeful that he would be able to go to a board and care upon discharge, based upon his good behavior in the medical milieu; however, he acknowledged that the final decision was up to his conservator. Patient presented as verbally engaged and nonobtrusive within the group milieu. Patient often made insightful comments that demonstrated his awareness that one needs to feel, "Safe," in order to share relevant and sensitive aspects of their mental health situation with others. Marcus Kennedy MA, GLOVE PARTS INSPECTOR Addendum: 11/21/19 at 1145 by Marcus Kennedy SS Amended: Links added.
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
--- NOTE | 2019-11-21 15:32 | NUR ---
PLACEMENT Yfn's packet is currently at [facility], [facility], and [facility]. He was declined at [facility] due to his behaviors while at [facility]. VICKY Madera
[2019-11-21 19:58] VITALS: BP 139/70
[2019-11-21] MEDS: zolpidem 5mg tablet PO PRN (23:43)
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
[2019-11-22 08:00] VITALS: BP 115/70
[2019-11-22] MEDS: carbamide peroxide 15ml bottle RIGHT EAR SCH ×2 (08:00→20:00)
[2019-11-22] MEDS: lactose-reduced food (Ensure High Protein) 237ml bottle PO SCH ×4 (08:25→18:17)
[2019-11-22] MEDS: lithium carbonate 150mg capsule PO SCH ×2 (08:26→20:12)
[2019-11-22] MEDS: divalproex sod 250mg ER (24-hour) tablet PO SCH ×2 (08:26→20:12)
--- NOTE | 2019-11-22 10:00 | NUR ---
Group Therapy: Process Group This Clinicians goals for this process group were as follows: (1) Ask scaling questions about Patients current anxiety, depression, and irritability symptoms as a check-in. (2) Share psychoeducation about automatic thoughts and cognitive distortions. (3) Share psychoeducation on CBT thought-stopping and, thought-reframing. (4) Discuss strategies for identifying negative, unhelpful, and/or irrational thoughts as quickly as possible to avoid unwanted escalation of mental health symptoms. (5) Process Clients thoughts and reflections on this topic within the group milieu. Patient identified experiencing the following levels of anxiety, depression, and anger/irritability while present in the group milieu. Anxiety: 0/10 Depression: 0/10 Anger/irritability: 0/10 Patient presented as open and cooperative within the group milieu. Patient wore a personal, nondescript, dark, printed t-shirt and [facility] scrub bottoms within the group milieu. Patient's thought content was clear, and concrete. Patient's thought process was clear, coherent, and linear. This Clinician did not observe Patient responding to any internal stimuli during session. Patient presented as verbally engaged and nonobtrusive within the group milieu. Patient arrived approximately thirty minutes into the group discussion on cognitive distortions, thought-stopping, and thought-reframing. Patient offered insightful comments during the process group on the importance of accurately identifying ones personal emotions as it related to how said emotions could affect or impact potential acts of negative/irrational cognition. Patient was able to summarize accurately why "Hindsight thinking," was a cognitive distortion. More specifically, he identified that you needed to be careful not to blame yourself for things that you would have had no possible way of knowing in a certain situation, after the situation has already occurred. Marcus Kennedy MA, VICKY Addendum: 11/22/19 at 1151 by Marcus Kennedy Amended: Links added.
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
--- NOTE | 2019-11-22 15:38 | NUR ---
PLACEMENT Faxed last week of notes to [facility] office at their request for placement purposes. VICKY Madera
--- NOTE | 2019-11-22 15:49 | NUR ---
Left message for Crystal, Public Guardian (ph# [phone]), to advocate again for Yfn to go to a Board and Care vs [facility]. VICKY Madera
[2019-11-22 19:55] VITALS: BP 125/67
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
[2019-11-23] MEDS: divalproex sod 250mg ER (24-hour) tablet PO SCH ×2 (07:41→20:43)
[2019-11-23] MEDS: lactose-reduced food (Ensure High Protein) 237ml bottle PO SCH ×3 (07:41→18:07)
[2019-11-23] MEDS: lithium carbonate 150mg capsule PO SCH ×2 (07:41→20:43)
[2019-11-23 07:50] VITALS: BP 128/78
[2019-11-23] MEDS: carbamide peroxide 15ml bottle RIGHT EAR SCH ×2 (08:00→20:00)
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
[2019-11-23 19:44] VITALS: BP 145/79
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
[2019-11-24 07:30] VITALS: BP 124/78
[2019-11-24] MEDS: lithium carbonate 150mg capsule PO SCH ×2 (07:58→20:31)
[2019-11-24] MEDS: divalproex sod 250mg ER (24-hour) tablet PO SCH ×2 (07:58→20:31)
[2019-11-24] MEDS: lactose-reduced food (Ensure High Protein) 237ml bottle PO SCH ×3 (08:00→18:17)
[2019-11-24] MEDS: carbamide peroxide 15ml bottle RIGHT EAR SCH ×2 (08:00→20:00)
--- NOTE | 2019-11-24 09:17 | NUR ---
F/u (11/23): Pt PO 75-100% avg meals receiving double proteins and ensure high protein TIDWM per MD orders meeting needs. +4kg since admit. LBM 11/21. No nutrition concerns at this time. Will continue to monitor. Rec: 1. Continue regular diet with double protein TID per diet order 2. Ensure High Protein TID per MD 3. Bowel care PRN 4. Scaled weights per rx Addendum: 11/24/19 at [address] Amended: Links added.
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
[2019-11-24 19:18] VITALS: BP 155/92
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
[2019-11-25] MEDS: divalproex sod 250mg ER (24-hour) tablet PO SCH ×2 (07:36→20:23)
[2019-11-25] MEDS: lithium carbonate 150mg capsule PO SCH ×2 (07:36→20:23)
[2019-11-25] MEDS: carbamide peroxide 15ml bottle RIGHT EAR SCH ×2 (08:00→20:00)
[2019-11-25] MEDS: lactose-reduced food (Ensure High Protein) 237ml bottle PO SCH (08:21)
[2019-11-25 08:43] VITALS: BP 114/66
--- NOTE | 2019-11-25 10:00 | NUR ---
Group Therapy: Process Group This Clinicians goals for this process group were as follows: (1) Ask scaling questions about Patients current anxiety, depression, and irritability symptoms as a check-in. (2) Share psychoeducation about self-efficacy, and ego strength. (3) Provide psychoeducation on [employer] Drama triangleVictim, Persecutor, Rescuer dynamic. (4) Share psychoeducation on developing positive ego strengthpositive affirmations, positive self-talk, transitioning from a victim of circumstances to a survivor of circumstances. (5) Process Clients thoughts and reflections on this topic within the group milieu. Patient identified experiencing the following levels of anxiety, depression, and anger/irritability while present in the group milieu. Anxiety: 04/26 Depression: 04/26 Anger/irritability: 04/26 Patient presented as argumentative and noncooperative within the group milieu. Patient was dressed in a dark t-shirt and [facility] scrub pants within the milieu. Patient's thought content was clear and concrete. Patient's thought process was clear, coherent, and linear; however, per this Clinician's impression, Patient perseverated on differences between positive affirmations--which this Clinician mentioned as an intervention that patients could practice to raise their ego strength, in attempts to move from a victim to a survivor mindset--and "manifestations," which was not the focus of this process group. Patient maintained that the manifestation of a hoped for change in character had to, "Exist," or be present before one could positively affirm them into existence. Regardless of truth of this, this Clinician's focus was to encourage patients in the milieu to engage in a regular practice that could help them boost their sense of self esteem, self efficacy, and ego strength so that they could gradually transition from feeling like a victim to circumstances beyond their control to being a survivor of circumstances who embody traits of personal resiliency. Patient became argumentative because he had difficulty accepting the teaching approach of this Clinician. He interrupted this Clinician on several occasions. Said interruptions became noticeable and intrusive, leading this Clinician to ask Patient to remove himself from the process group. Upon his departure Patient stated that it was probably, "Best that he left, because you are shitting on my beliefs." Marcus Kennedy MA, AGRONOMY SUPERVISOR Addendum: 11/26/19 at 0831 by Marcus ARANA Amended: Mel[place] added.
--- NOTE | 2019-11-25 10:37 | NUR ---
F/u(11/24): Fax received by dietary from RN regarding pt no longer wanting ensure high protein ONS just almond milk TIDWM instead. HIMA d/w RN regarding cancelling current ONS order given pt preferences if MD agreeable given good PO hx as well. Dietary notified of pt updated preferences. Rec: 1. Continue regular diet with double protein TID per diet order 2. almond milk TIDWM instead of ONS per pt preferences 3. Bowel care PRN 4. Scaled weights per rx Addendum: 11/25/19 at [address] Amended: Links added.
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
[2019-11-25 19:28] VITALS: BP 133/74
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
[2019-11-26 07:47] VITALS: BP 111/63
[2019-11-26] MEDS: carbamide peroxide 15ml bottle RIGHT EAR SCH (08:00)
[2019-11-26] MEDS: divalproex sod 250mg ER (24-hour) tablet PO SCH ×2 (08:10→20:15)
[2019-11-26] MEDS: lithium carbonate 150mg capsule PO SCH ×2 (08:11→20:15)
--- NOTE | 2019-11-26 10:00 | NUR ---
Group Therapy: Process Group This Clinicians goals for this process group were as follows: (1) Ask scaling questions about patients current anxiety, depression, and irritability symptoms as a check-in. (2) Share psychoeducation about three rules of brief solution-focused problem-solving: A) Stop doing what clearly isnt working, B) Do something different, C) If the different activity works, then do more of it. If it doesnt work, then go back to principle A). (3) Identify examples of thoughts, activities, and behaviors that people do that no longer work for them, or they create more problems than solutions. (4) Identify examples of thoughts, activities, and behaviors that may help create better emotional/behavioral outcomes and lead to good solutions to problems. (5) Engage patients in discussion of the topics shared within the group milieu. Patient identified experiencing the following levels of anxiety, depression, and anger/irritability while present in the group milieu. Anxiety: 04/26 Depression: 04/26 Anger/irritability: 04/26 Patient presented as cooperative within the group milieu. Patient wore a nondescript black t-shirt and [facility] scrub bottoms within the group milieu. Patient's thought process was clear, and concrete. Patient's thought process was clear, coherent, and linear. This Clinician did not observe Patient responding to any internal stimuli during session. Patient presented as more verbally subdued today than in prior process groups. He sat in the back of the group room. This Clinician observed Patient marking letters on his knuckles and hands, though this Clinician was not able to make out any specific words that could have been written down. During discussion of a strategy that could employed in working through the problem of feeling anxious, using the modality of brief solution-focused problem solving thinking, Patient stated that, "Repetition," is something that could be done, "Differently," in order to reduce the overall duration, intensity, and frequency of one's anxiety, by gradually exposing themselves to a stress or anxiety-producing situation. This Clinician validated Client for his answer, suggesting that that was an adaptive intervention that could help to reduce one's problem of feeling anxious. Patient presented as nonobtrusive during the process group. Marcus Kennedy MA, GUEST EXPERIENCE SPECIALIST
[2019-11-26] MEDS ORDERED: carbamide peroxide 15ml bottle RIGHT EAR PRN (10:20)
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
[2019-11-26 19:14] VITALS: BP 131/81
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
[2019-11-26] MEDS: zolpidem 5mg tablet PO PRN (22:08)
[2019-11-27] MEDS: lithium carbonate 150mg capsule PO SCH ×2 (08:06→19:34)
[2019-11-27] MEDS: divalproex sod 250mg ER (24-hour) tablet PO SCH ×2 (08:06→19:34)
[2019-11-27 08:49] VITALS: BP 114/60
--- NOTE | 2019-11-27 10:00 | NUR ---
Group Therapy: Process Group This Clinicians goals for this process group were as follows: (1) Ask scaling questions about Patients current anxiety, depression, and irritability symptoms as a check-in. (2) Share psychoeducation about the importance of being able to identify regular activities, support people, and thoughts (Anchors) that contribute to mental health well-being and stability. (3) Share psychoeducation about how the gradual removal of said activities, people and behaviors may lead to the erosion of mental well-being and stability. (4) Encourage Patients to identify support anchors that they need to maintain in their life that will promote their mental and emotional well-being. (5) Engage Patients in discussion of the topics shared within the group milieu. Patient identified experiencing the following levels of anxiety, depression, and anger/irritability while present in the group milieu. Anxiety: 04/26 Depression: 04/26 Anger/irritability: 04/26 Patient presented as open and cooperative within the group milieu. Patient wore a nondescript, personal t-shirt and [facility] scrub bottoms within the group milieu. Patient's thought content was clear, and concrete. This Clinician's thought process was clear, coherent, and linear. This Clinician did not observe Patient responding to any internal stimuli during session. Patient presented as verbally engaged and nonobtrusive within the process group. On the topic of grounding interventions that patients could utilize to maintain optimal/baseline mental health, Patient shared insightful comments about the importance of socializing as a grounding activity--one that wasn't so much tied to talking to support people about one's mental health issues; instead, simply spending time talking to supportive friends, and family as a way of maintaining adaptive mood. Patient left the process group quietly after about thirty minutes and did not return. Marcus Kennedy MA, VICKY Addendum: 11/27/19 at 1133 by Marcus Kennedy Amended: Links added. Addendum: 11/27/19 at 1137 by Marcus Kennedy SS This note was incorrectly linked to the suicide severity intervention. Please note that the proper link for this progress note is to Patient's Activity Therapy Assessment
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
[2019-11-27 19:20] VITALS: BP 134/77
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
[2019-11-28] MEDS: lithium carbonate 150mg capsule PO SCH ×2 (07:39→20:05)
[2019-11-28] MEDS: divalproex sod 250mg ER (24-hour) tablet PO SCH ×2 (07:40→20:05)
[2019-11-28 07:52] VITALS: BP 121/63
--- NOTE | 2019-11-28 10:00 | NUR ---
Group Therapy: Process Group This Clinicians goal for this process group were as follows: (1) Share psychoeducation about core beliefs and how these beliefs shapes how one views reality. (2) Compare and contrast how people with different core beliefs might interpret an identical situation differently. (3) Discuss how changing negative core beliefs to more balanced, helpful, and rational alternatives can lead to improved behaviors and mood. (4) Process Clients thoughts and reflections on this topic within the group milieu. Patient identified experiencing the following levels of anxiety, depression, and anger/irritability while present in the group milieu. Anxiety: 04/26 Depression: 04/26 Anger/irritability: 04/26 Patient presented as open and cooperative within the group milieu. Patient was dressed in a personal, nondescript t-shirt, and [facility] scrub bottoms that were appropriate within the milieu. Patient's thought process was clear, and concrete. Patient's thought process was clear, coherent, and linear. This Clinician did not observe Patient responding to any internal stimuli during the process group. Patient presented as verbally cooperative and nonobtrusive within the group. Patient used a pencil to draw on some of the psychoeducation handouts on core beliefs that this Clinician handed to him, in a nonobtrusive fashion. Patient frequently made insightful comments about how holding a different fundamental core belief could alter how one thinks and feels when faced with an identical situation. Patient inserted the comment that doing this kind of hypothetical work in evaluating how core beliefs could impact one's outlook as either positive or negative was very, "Situational," This Clinician has observed that Patient has shared similar comments in other groups and granted Client this point; namely, that identifying how one's core belief impacts how one thinks, feels, and acts in a given context is situational. Marcus Kennedy MA, VICKY Addendum: 11/28/19 at 1155 by Marcus Kennedy Amended: Links added.
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
--- NOTE | 2019-11-28 15:36 | NUR ---
FANTASMA Coulter's packet is currently at [facility], [facility], [place], and [facility]. VICKY [place]
[2019-11-28 19:40] VITALS: BP 136/84
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
[2019-11-29 08:00] VITALS: BP 126/74
[2019-11-29 08:06] LABS: BASOPHILS % (AUTO) 0.3 % (0-1); EOSINOPHILS # (AUTO) 0.1 X10'3 (0-0.9); EOSINOPHILS % (AUTO) 2.1 % (0-6); HEMATOCRIT 42.3 % (42.0-52.0); HEMOGLOBIN 14.7 g/dl (14.0-17.9); LYMPHOCYTES # (AUTO) 1.6 X10'3 (1.1-4.8); LYMPHOCYTES % (AUTO) 26.4 % (21-51); MEAN CORPUSCULAR HEMOGLOBIN 32.5 PG (27.0-31.0); MEAN CORPUSCULAR HGB CONC 34.7 g/dL (33.0-36.5); MEAN CORPUSCULAR VOLUME 93.6 FL (78-98); MEAN PLATELET VOLUME 8.4 FL (7.4-10.4); MONOCYTES # (AUTO) 0.6 X10'3 (0-0.9); MONOCYTES % (AUTO) 10.1 % (2-12); NEUTROPHILS # (AUTO) 3.6 X10'3 (1.8-7.7); NEUTROPHILS % (AUTO) 61.1 % (42-75); PLATELET COUNT 209 X10'3 (140-440); RED BLOOD COUNT 4.51 X10'6 (4.70-6.10); RED CELL DISTRIBUTION WIDTH 12.3 % (11.5-14.5)
[2019-11-29] MEDS: vitamin D (cholecalciferol) 1,000 unit tablet PO SCH (08:46)
[2019-11-29] MEDS: divalproex sod 250mg ER (24-hour) tablet PO SCH ×2 (08:46→19:11)
[2019-11-29] MEDS: lithium carbonate 150mg capsule PO SCH ×2 (08:46→19:11)
[2019-11-29 10:06] LABS: ALANINE AMINOTRANSFERASE 23 U/L (12-78); ALBUMIN 3.8 G/DL (3.4-5.0); ALBUMIN/GLOBULIN RATIO 1.1 (1.1-1.5); ALKALINE PHOSPHATASE 34 IU/L (46-116); ANION GAP 6 (8-16); ASPARTATE AMINO TRANSFERASE 26 U/L (10-37); BILIRUBIN,TOTAL 0.2 MG/DL (0.1-1.0); BLOOD UREA NITROGEN 12 MG/DL (7-18); BUN/CREATININE RATIO 14.6 (5.4-32.0); CHLORIDE 105 MMOL/L (99-107); CREATININE 0.82 MG/DL (0.60-1.10); GLUCOSE 84 MG/DL (70-104); POTASSIUM 4.1 MMOL/L (3.5-5.1); SODIUM 140 MMOL/L (135-145); TOTAL CARBON DIOXIDE 28.8 MMOL/L (24-32); TOTAL PROTEIN 7.3 G/DL (6.4-8.2); VALPROATE 44 UG/ML (50-100); eGFR > 90 ML/MIN
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
[2019-11-29 19:30] VITALS: BP 131/79
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
[2019-11-30 07:58] VITALS: BP 110/74
[2019-11-30] MEDS: divalproex sod 250mg ER (24-hour) tablet PO SCH ×2 (08:00→20:31)
[2019-11-30] MEDS: vitamin D (cholecalciferol) 1,000 unit tablet PO SCH (08:01)
[2019-11-30] MEDS: lithium carbonate 150mg capsule PO SCH ×2 (08:01→20:30)
--- NOTE | 2019-11-30 10:24 | NUR ---
F/u (11/29): Pt PO 75-100% avg meals refused lunch yesterday overall meeting needs. LBM 11/25; HIMA d/w RN to clarify since noted moderate BM's daily. Would benefit from bowel care if true constipation. Will continue to monitor. Rec: 1. Continue regular diet with double protein TID per diet order 2. almond milk TIDWM instead of ONS per pt preferences 3. Bowel care PRN 4. Scaled weights per rx Addendum: 11/30/19 at [address] Amended: Links added.
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
[2019-11-30 19:00] VITALS: BP 138/78
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
[2019-12-01] MEDS: divalproex sod 250mg ER (24-hour) tablet PO SCH ×2 (07:32→20:20)
[2019-12-01] MEDS: vitamin D (cholecalciferol) 1,000 unit tablet PO SCH (07:32)
[2019-12-01] MEDS: lithium carbonate 150mg capsule PO SCH ×2 (07:32→20:21)
[2019-12-01 07:47] VITALS: BP 97/64
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
[2019-12-01 20:00] VITALS: BP 148/84
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
[2019-12-02] MEDS: divalproex sod 250mg ER (24-hour) tablet PO SCH ×2 (07:56→19:31)
[2019-12-02] MEDS: lithium carbonate 150mg capsule PO SCH ×2 (07:56→19:22)
[2019-12-02] MEDS: vitamin D (cholecalciferol) 1,000 unit tablet PO SCH (07:56)
[2019-12-02 08:00] VITALS: BP 110/80
--- NOTE | 2019-12-02 15:14 | NUR ---
DENTAL APPT 12/11/19 at 2:30 PM Darren Rojaslan's Public Guardian, called to remind us that Yfn has a dental appt on 12/11/19 at 2:30 PM at [facility] in [place]. He will likely get picked up around 1-1:15 pm. VICKY Madera
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
--- NOTE | 2019-12-02 17:31 | NUR ---
User: Francoise Olson Date: 12/02/19 17:03 Type: Group Therapy Notes Type Art Tx Group Date Dec 02, 2019 Group Time 14:00 Group Focus Social and Emotional Art Expression Activity Goal Addressed Communication ad Self Esteem Dev/ID my Inner Perceptions & Self Talk Behavior Appropriate Affect Appropriate/Full Cognition Comment Coherent, yet reality orientation is based on personal perceptions (see response) Mood Stable Intervention Discussion Intervention Comment Morning Group Review and Emotional Pain Scale Rating Patients were provided with a guided relaxation to practice relaxation and stress management. Patient were then asked to select a picture from a pre-selection. Patients then were directed to color and complete a journaling exercise. Response Good Participation Response Comments Patient was fully engaged in the group activity, journaling and group process. Themes expressed: "I am colorful, I feel trapped, I will fight for change, I believe real choice, I am breathing." Patient was attentive, listening and supportive to his peers as they shared their works. Participations Level Active Teaching Method Discussion Experiential Goals Met Goals Met Goals Met Francoise Olson MA, BANKING SPECIALIST #[id number] Group Art Therapist, [facility] Addendum: 12/02/19 at 1734 by Francoise Olson Amended: Links added.
[2019-12-02 20:00] VITALS: BP 139/81
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
[2019-12-03 07:55] VITALS: BP 124/68
[2019-12-03] MEDS: lithium carbonate 150mg capsule PO SCH ×2 (08:36→20:33)
[2019-12-03] MEDS: vitamin D (cholecalciferol) 1,000 unit tablet PO SCH (08:36)
[2019-12-03] MEDS: divalproex sod 250mg ER (24-hour) tablet PO SCH ×2 (08:36→20:33)
--- NOTE | 2019-12-03 10:00 | NUR ---
Group Therapy: Process Group This Clinicians goal for this process group were as follows: (1) Ask scaling questions about patients current anxiety, depression, and irritability symptoms as a check-in (2) Introduce and provide psychoeducation on distress tolerance skills. (2) Introduce the concept of radical acceptance and using our senses to self-soothe. (3) Share the acronym, IsidoroE Activities; Contributing; Comparisons; Emotions; Pushing Away; Thoughts; and Sensations (4) Process Clients thoughts and reflections on this topic within the group milieu. Patient identified experiencing the following levels of anxiety, depression, and anger/irritability while present in the group milieu. Anxiety: 0/10 Depression: 0/10 Anger/irritability: 0/10 Patient presented as properly oriented x4 during the process group. Patient was dressed in a personal t-shirt, and [facility] scrub bottoms that were appropriate within the milieu. Psychomotor activity was unremarkable. Patient played Chess and cards quietly with another Patient at times during the process group. Patient's thought content was clear, and concrete. Patient's thought process was clear, coherent, and linear. This Clinician did not observe Patient responding to any internal stimuli during session. The rate, latency, and tone of Client's speech was within normal limits. Patient sustained regular eye contact with this Clinician when he spoke to him. Patient presented in calm euthymic mood, with congruent affect during the process group. Patient presented as open and cooperative, and was verbally engaged and nonobtrusive within the group milieu. During the process group discussion on radical acceptance, as an intervention that one could utilize to minimize distress in situations that one cannot change, Patient acknowledged that if he doesn't like receiving similar negative outcomes then he is beginning to realize the importance of evaluating his own behavior in those situations. In the context of using the five senses to self-soothe, this Clinician asked all the patients within the milieu a smell that they enjoyed that calms them down. Patient stated, "Women." Marcus Kennedy MA, [facility] Addendum: 12/04/19 at 0832 by Marcus ARANA Amended: Links added.
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
[2019-12-03 20:27] VITALS: BP 167/78
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
[2019-12-04 07:42] VITALS: BP 132/57
[2019-12-04] MEDS: lithium carbonate 150mg capsule PO SCH ×2 (08:15→20:35)
[2019-12-04] MEDS: vitamin D (cholecalciferol) 1,000 unit tablet PO SCH (08:15)
[2019-12-04] MEDS: divalproex sod 250mg ER (24-hour) tablet PO SCH ×2 (08:16→20:35)
--- NOTE | 2019-12-04 10:00 | NUR ---
Group Therapy: Process Group This Clinicians goal for this process group were as follows: (1) Ask scaling questions about Patients current anxiety, depression, and irritability symptoms as a check-in. (2) Provide psychoeducation on differences between passive, passive-aggressive, assertive, and aggressive forms of communication. (3) Provide psychoeducation on fair fighting rules to illustrate principles of assertive communication. (4) Process Patients thoughts and reflections on this topic within the group milieu. Patient identified experiencing the following levels of anxiety, depression, and anger/irritability while present in the group milieu. Anxiety: 0/10 Depression: 0/10 Anger/irritability: 0/10 Patient presented as properly oriented x4 during the process group. Patient was dressed in a personal t-shirt and [facility] scrub pants that were appropriate within the milieu. Psychomotor activity was unremarkable. Patient's thought content was clear, and concrete. Patient's thought process was clear, coherent, and linear. This Clinician did not observe Patient responding to any internal stimuli during session. The rate, latency, and tone of Client's speech was within normal limits. Patient sustained regular eye contact with this Clinician. Patient presented in calm euthymic mood, with congruent affect during the process group. Patient presented as open and cooperative, and was verbally engaged and nonobtrusive within the group milieu. Patient frequently made insightful and salient comments about personal strategies that one could employ to practice calm, communication with others. More specifically, he identified, that adaptive communication requires an individual to not only be aware of their own thoughts and feelings, but that it also requires the effort to be aware of what the person you are talking to is thinking and feeling. Patient also shared the importance of knowing when to remove yourself from a situation, or take a "Time out," if it becomes obvious that a person with whom you are talking becomes emotionally escalated to the point that maladaptive conflict is likely to occur. Marcus Kennedy MA, WAYBILL CLERK Addendum: 12/04/19 at 1152 by Marcus ARANA Amended: Links added.
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
[2019-12-04 20:33] VITALS: BP 140/74
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
[2019-12-05 08:00] VITALS: BP 119/60
[2019-12-05] MEDS: vitamin D (cholecalciferol) 1,000 unit tablet PO SCH (08:17)
[2019-12-05] MEDS: divalproex sod 250mg ER (24-hour) tablet PO SCH ×2 (08:17→20:51)
[2019-12-05] MEDS: lithium carbonate 150mg capsule PO SCH ×2 (08:18→20:50)
--- NOTE | 2019-12-05 10:00 | NUR ---
Group Therapy: Process Group This Clinicians goal for this process group were as follows: (1) Ask scaling questions about patients current anxiety, depression, and irritability symptoms as a check-in. (2) Provide psychoeducation on grounding activities as a means to reduce the acuity of unwanted mental health symptoms. (3) Introduce mandalas as one such activity for group participation within the milieu. (4) Check-in with patients during the coloring activity to reinforce the importance of engaging in adaptive grounding activities. Patient identified experiencing the following levels of anxiety, depression, and anger/irritability while present in the group milieu. Anxiety: 0/10 Depression: 0/10 Anger/irritability: 0/10 Patient presented as properly oriented x4 during the process group. Patient was dressed in a nondescript, personal t-shirt and [facility] scrub bottoms within the milieu. Psychomotor activity was unremarkable. Patient's thought content was clear, and concrete. Patient's thought process was clear, coherent, and linear. This Clinician did not observe Patient responding to any internal stimuli during session. The rate, latency, and tone of Client's speech was within normal limits. Patient sustained regular eye contact with this Clinician. Patient presented in calm euthymic mood, with congruent affect during the process group. Patient presented as open and cooperative, and was verbally engaged and nonobtrusive within the group milieu. Patient participated in the emotional grounding activity of coloring his mandala. He interacted appropriately with his peers. During the grounding activity Patient appropriately shared with this Clinician and his peers some of his history regarding how he developed some of his spiritual beliefs. Marcus Kennedy MA, VICKY Addendum: 12/06/19 at 0840 by Marcus Kennedy Amended: Links added.
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
--- NOTE | 2019-12-05 15:39 | NUR ---
REQUEST OF PLACEMENT REVIEW Called Crystal, Public Guardian (ph# [phone]), to inform her that [facility] is requesting a placement review. She reported his Junior Technical Writer is Myrna Clark (ph# [phone]) and he should call her. Had a discussion with [facility] and he reported one of the reasons why he wants to go to a [facility] is so he can access one on one therapy. Asked him what he thought about meeting with Maryan Forde one on one as she is now available to do so. He back pedaled a bit and gave excuses why that may not work out. He did agree to meet with her. Talked to Maryan Forde and asked her to meet with [facility] and she agreed to do so. VICKY Mad[place]
[2019-12-05 20:00] VITALS: BP 138/77
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
[2019-12-06 07:37] VITALS: BP 108/65
[2019-12-06] MEDS: lithium carbonate 150mg capsule PO SCH ×2 (08:09→20:20)
[2019-12-06] MEDS: divalproex sod 250mg ER (24-hour) tablet PO SCH ×2 (08:09→20:21)
[2019-12-06] MEDS: vitamin D (cholecalciferol) 1,000 unit tablet PO SCH (08:09)
--- NOTE | 2019-12-06 10:00 | NUR ---
Group Therapy: Process Group This Clinicians goals for this process group were as follows: (1) Ask scaling questions about Patients current anxiety, depression, and irritability symptoms as a check-in. (2) Share psychoeducation about emotional escalation as it relates to stress and negative symptoms, Fight, flight, freeze. (2) Provide psychoeducation on the STOPP acronym: Stop, Take a Breath, Observe the situation, Put things into perspective, and, Practice what works. (3) Share psychoeducation on principles of mindfulness and emotional relaxation techniques that Patients may utilize to reduce the acuity of unwanted emotional escalation. (5) Process Clients thoughts and reflections on this topic within the group milieu. Patient identified experiencing the following levels of anxiety, depression, and anger/irritability while present in the group milieu. Anxiety: 0/10 Depression: 0/10 Anger/irritability: 0/10 Patient presented as properly oriented x4 during the process group. Patient was dressed in nondescript, personal clothing that were appropriate within the milieu. He wore a black t-shirt and dark pineda jony jeans. Psychomotor activity was unremarkable. On one occasion, Patient did tricep chair dips in the middle of the process group. Patient's thought content was clear, and concrete. Patient's thought process was clear, coherent, and linear. This Clinician did not observe Patient responding to any internal stimuli during session. The rate, latency, and tone of Client's speech was within normal limits. Patient sustained regular eye contact with this Clinician. Patient presented in calm euthymic mood, with congruent affect during the process group. Patient presented as open and cooperative, and was verbally engaged and nonobtrusive within the group milieu. Patient made numerous insightful comments during the discussion of the STOPP method of emotional deescalation. Patient acknowledged that a strategy that he frequently tried to use in order to deescalate feelings of unwanted emotional escalation was to remove himself from tense situations, or take a, "Time out." Client acknowledged, however, that this intervention did not always work because he realized that avoiding a situation sometimes only draws out conflict that needs to be addressed. In this context, Patient acknowledged that one need to think of ways to self-soothe in a, "Situational" fashion. Marcus Kennedy MA, PRE KINDERGARTEN TEACHER Addendum: 12/09/19 at 0830 by Marcus ARANA Amended: Links added.
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
[2019-12-06 19:00] VITALS: BP 165/69
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
[2019-12-07] MEDS: vitamin D (cholecalciferol) 1,000 unit tablet PO SCH (07:28)
[2019-12-07] MEDS: divalproex sod 250mg ER (24-hour) tablet PO SCH ×2 (07:28→20:52)
[2019-12-07] MEDS: lithium carbonate 150mg capsule PO SCH ×2 (07:30→20:53)
[2019-12-07 08:00] VITALS: BP 117/53
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
[2019-12-07 20:05] VITALS: BP 161/72
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
[2019-12-08] MEDS: vitamin D (cholecalciferol) 1,000 unit tablet PO SCH (07:58)
[2019-12-08] MEDS: divalproex sod 250mg ER (24-hour) tablet PO SCH ×2 (07:58→20:38)
[2019-12-08] MEDS: lithium carbonate 150mg capsule PO SCH ×2 (07:58→20:38)
[2019-12-08 08:00] VITALS: BP 117/76
--- NOTE | 2019-12-08 09:51 | NUR ---
F/u (12/07): Pt PO 75-100% avg meals meeting needs. LBM 12/05. Will continue to monitor. Rec: 1. Continue regular diet with double protein TID per diet order 2. almond milk TIDWM instead of ONS per pt preferences 3. Bowel care PRN 4. Scaled weights per rx Addendum: 12/08/19 at [address] Amended: Links added.
[2019-12-08] MEDS: NICOTINE POLACRILEX 2 MG LOZENGE BC PRN ×3 (11:47→19:34)
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
[2019-12-08 19:00] VITALS: BP 146/80
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
[2019-12-09] MEDS: vitamin D (cholecalciferol) 1,000 unit tablet PO SCH (07:29)
[2019-12-09] MEDS: divalproex sod 250mg ER (24-hour) tablet PO SCH ×2 (07:29→20:28)
[2019-12-09] MEDS: lithium carbonate 150mg capsule PO SCH ×2 (07:29→20:28)
[2019-12-09 08:00] VITALS: BP 110/60
--- NOTE | 2019-12-09 10:00 | NUR ---
Group Therapy: Process Group This Clinicians goal for this process group were as follows: (1) Ask scaling questions about Patients current anxiety, depression, and irritability symptoms as a check-in. (2) Provide psychoeducation on emotional and situational stressors. (3) Discuss thoughts and feelings that patients experience when they have experienced an emotional and/or situational stressor. (4) Provide psychoeducation on interventions, as actions patients can take to reduce feelings of emotional escalation caused by situational and emotional stressors. (5) Process Patients thoughts and reflections on this topic within the group milieu. Patient identified experiencing the following levels of anxiety, depression, and anger/irritability while present in the group milieu. Anxiety: 0/10 Depression: 0/10 Anger/irritability: 0/10 Patient presented as properly oriented x4 during the process group. Patient was dressed in nondescript, personal clothing--a dark t-shirt, and black jony jeans--that were appropriate within the milieu. Psychomotor activity was unremarkable. Patient's thought content was clear, and concrete. Patient's thought process was clear, coherent, and linear. This Clinician did not observe Patient responding to any internal stimuli during session. The rate, latency, and tone of Client's speech was within normal limits. Patient sustained regular eye contact with this Clinician. Patient presented in calm euthymic mood, with congruent affect during the process group. Patient presented as open and cooperative, and was verbally engaged and nonobtrusive within the group milieu. Patient made numerous insightful comments during process group discussion on stressful, emotionally triggering situations, and interventions that one could utilize to reduce unwanted levels of emotional escalation. Patient came up with the stressful/triggering situation that other patients within the process group used as a example for discussion; namely, having a conversation with one's parents that does not go well. Patient also commented that the "list" of interventions that he would utilize to reduce the acuity of unwanted mental health symptoms would vary based upon the stressful situation that he was responding to. Marcus Kennedy MA, STAIN MAKER Addendum: 12/10/19 at 0835 by Marcus ARANA Amended: Links added.
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
[2019-12-09 20:04] VITALS: BP 127/88
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
[2019-12-10 08:00] VITALS: BP 100/64
[2019-12-10] MEDS: divalproex sod 250mg ER (24-hour) tablet PO SCH ×2 (08:06→20:28)
[2019-12-10] MEDS: lithium carbonate 150mg capsule PO SCH ×2 (08:06→20:27)
[2019-12-10] MEDS: vitamin D (cholecalciferol) 1,000 unit tablet PO SCH (08:06)
[2019-12-10] MEDS: NICOTINE POLACRILEX 2 MG LOZENGE BC PRN ×2 (13:46→18:48)
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
--- NOTE | 2019-12-10 16:39 | NUR ---
Group Art Therapy continued: Patient was engaged, supportive and interactive with his peers during the group activity and process. Patients' themes were positive focusing on his awareness of personal growth and change. He wrote of one of his favorite pictures: "I am every day working for a stronger me.! I think my life is worth the struggle. I feel more love for my mistakes. I wish for my growth to come faster. I want love. I need security for me and my kin. I will never quit. I believe in experience. I am thankful." Francoise Olson MA, [id number] Art Therapist, [facility] Addendum: 12/10/19 at 1641 by Francoise Olson Amended: Links added.
[2019-12-10 20:00] VITALS: BP 138/60
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
[2019-12-11 07:41] VITALS: BP 116/62
[2019-12-11] MEDS: divalproex sod 250mg ER (24-hour) tablet PO SCH ×2 (07:55→21:51)
[2019-12-11] MEDS: vitamin D (cholecalciferol) 1,000 unit tablet PO SCH (07:55)
[2019-12-11] MEDS: lithium carbonate 150mg capsule PO SCH ×2 (07:55→21:50)
--- NOTE | 2019-12-11 10:00 | NUR ---
Group Therapy: Process Group This Clinicians goals for this process group were as follows: (1) Ask scaling questions about Patients current anxiety, depression, and irritability symptoms as a check-in. (2) Share psychoeducation about automatic thoughts and cognitive distortions. (3) Share psychoeducation on CBT thought-stopping and, thought-reframing. (4) Discuss strategies for identifying negative, unhelpful, and/or irrational thoughts as quickly as possible to avoid unwanted escalation of mental health symptoms. (5) Process Clients thoughts and reflections on this topic within the group milieu. Patient identified experiencing the following levels of anxiety, depression, and anger/irritability while present in the group milieu. Anxiety: 0/10 Depression: 0/10 Anger/irritability: 0/10 Patient presented as properly oriented x4 during the process group. Patient was dressed in nondescript, personal clothing that were appropriate within the milieu. Patient wore a black t-shirt, and matching black, jony pants. Psychomotor activity was unremarkable. Patient quietly and nonobtrusively assembled a jigsaw puzzle with a fellow Patient during the process group. Patient's thought content was clear, and concrete. Patient's thought process was clear, coherent, and linear. This Clinician did not observe Patient responding to any internal stimuli during session. The rate, latency, and tone of Client's speech was within normal limits. Patient sustained regular eye contact with this Clinician. Patient presented in calm euthymic mood, with congruent affect during the process group. Patient presented as open and cooperative, and was verbally engaged and nonobtrusive within the group milieu. Near the beginning of this process group, this Clinician asked the patients within the process group to identify an, "Unhelpful thought," that they have entertained in the past. Patient freely shared his impression that he frequently thinks that a desired outcome that he hopes for is a, "Given," if he believes that he has acted in a certain way in order to make that desired option a reality. However, he acknowledged that just because he behaves in a certain way, even for upwards of, "Two weeks," it doesn't guarantee that he will received desired results on future outcomes. This Clinician thanked Patient for his contribution to the group and identified that the cognitive distortion that he referred to was commonly known as, "Magical thinking," or the belief that acts will influence unrelated situations. E.g., "I'm a good person--bad things shouldn't happen to me." Marcus Kennedy MA, GEOSCIENCE SPECIALIST Addendum: 12/11/19 at 1136 by Marcus Kennedy SS Amended: Links added.
[2019-12-11] MEDS: NICOTINE POLACRILEX 2 MG LOZENGE BC PRN (10:03)
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
[2019-12-11 20:00] VITALS: BP 163/75
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
[2019-12-12 07:40] VITALS: BP 114/58
[2019-12-12] MEDS: divalproex sod 250mg ER (24-hour) tablet PO SCH ×2 (08:15→22:03)
[2019-12-12] MEDS: lithium carbonate 150mg capsule PO SCH ×2 (08:15→22:02)
[2019-12-12] MEDS: vitamin D (cholecalciferol) 1,000 unit tablet PO SCH (08:15)
--- NOTE | 2019-12-12 10:00 | NUR ---
Group Therapy: Process Group This Clinicians goals for this process group were as follows: (1) Ask scaling questions about Patients current anxiety, depression, and irritability symptoms as a check-in. (2) Share psychoeducation about self-efficacy, and ego strength. (3) Provide psychoeducation on G[employer] Drama triangleVictim, Persecutor, Rescuer dynamic. (4) Share psychoeducation on developing positive ego strengthpositive affirmations, positive self-talk, transitioning from a victim of circumstances to a survivor of circumstances. (5) Process Clients thoughts and reflections on this topic within the group milieu. Patient identified experiencing the following levels of anxiety, depression, and anger/irritability while present in the group milieu. Anxiety: 0/10 Depression: 0/10 Anger/irritability: 0/10 Patient presented as properly oriented x4 during the process group. Patient was dressed in nondescript, personal clothing that were appropriate within the milieu. He wore a dark t-shirt, and black jony jeans. Patient was barefooted in the milieu. Psychomotor activity was unremarkable. Patient brought a book with him into the process group. He read from it briefly. This Clinician also observed him folding his arms on the table and resting his head. Patient's thought content was clear, and concrete. Patient's thought process was clear, coherent, and linear. This Clinician did not observe Patient responding to any internal stimuli during session. The rate, latency, and tone of Client's speech was within normal limits. Patient sustained regular eye contact with this Clinician. Patient presented in calm euthymic mood, with congruent affect during the process group. Patient presented as open and cooperative, and was verbally engaged and nonobtrusive within the group milieu. Patient was only present at the beginning of the process group. He reported experiencing no symptoms of anxiety, depression, and anger/irritability. He provided insightful comments on characteristics or attributes that one could ascribe to a people who considers themselves to be victims--i.e., having low ego strength, low sense of esteem and self-efficacy, feeling stuck, powerless, etc.. Patient was in the milieu for approximately ten minutes and then shared that he was tired and was going to take a nap. This Clinician thanked Patient for his attendance. He left quietly and did not return. Marcus Kennedy MA, SOFTWARE PACKAGING ENGINEER Addendum: 12/12/19 at 1127 by Marcus ARANA Amended: Links added.
--- NOTE | 2019-12-12 13:47 | NUR ---
DENTAL APPOINTMENTS Yfn has the following dental appointments scheduled at [facility]: Jan 02 @ 2PM Feb 11 @ 8:30 AM Feb 12 @ 1 PM VICKY [place]
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
[2019-12-12 19:53] VITALS: BP 154/87
[2019-12-12] MEDS: NICOTINE POLACRILEX 2 MG LOZENGE BC PRN (22:02)
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
[2019-12-13 07:43] VITALS: BP 120/55
[2019-12-13] MEDS: lithium carbonate 150mg capsule PO SCH ×2 (08:21→21:52)
[2019-12-13] MEDS: vitamin D (cholecalciferol) 1,000 unit tablet PO SCH (08:21)
[2019-12-13] MEDS: divalproex sod 250mg ER (24-hour) tablet PO SCH ×2 (08:21→21:52)
--- NOTE | 2019-12-13 10:00 | NUR ---
Group Therapy: Process Group This Clinicians goals for this process group were as follows: (1) Ask scaling questions about patients current anxiety, depression, and irritability symptoms as a check-in. (2) Share psychoeducation about three rules of brief solution-focused problem-solving: A) Stop doing what clearly isnt working, B) Do something different, C) If the different activity works, then do more of it. If it doesnt work, then go back to principle A). (3) Identify examples of thoughts, activities, and behaviors that people do that no longer work for them, or they create more problems than solutions. (4) Identify examples of thoughts, activities, and behaviors that may help create better emotional/behavioral outcomes and lead to good solutions to problems. (5) Engage patients in discussion of the topics shared within the group milieu. Patient identified experiencing the following levels of anxiety, depression, and anger/irritability while present in the group milieu. Anxiety: 0/10 Depression: 0/10 Anger/irritability: 0/10 Patient presented as properly oriented x4 during the process group. Patient was dressed in nondescript, personal clothing that were appropriate within the milieu. Psychomotor activity was unremarkable. Patient's thought content was clear, and concrete. Patient's thought process was clear, coherent, and linear. This Clinician did not observe Patient responding to any internal stimuli during session. The rate, latency, and tone of Client's speech was within normal limits. Patient sustained regular eye contact with this Clinician. Patient presented in calm euthymic mood, with congruent affect during the process group. Patient presented as open and cooperative, and was verbally engaged and nonobtrusive within the group milieu. Patient made numerous insightful comments during the process and verbalized awareness of the importance of remaining calm so as to be more effective in engaging in solution-focused ways of thinking. Marcus Kennedy MA, ORTHODONTIC TECHNICIAN Addendum: 12/17/19 at 0818 by Marcus Kennedy Amended: Links added.
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
[2019-12-13 19:25] VITALS: BP 141/88
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
[2019-12-14] MEDS: vitamin D (cholecalciferol) 1,000 unit tablet PO SCH (07:35)
[2019-12-14] MEDS: divalproex sod 250mg ER (24-hour) tablet PO SCH ×2 (07:35→19:45)
[2019-12-14 07:57] VITALS: BP 119/62
[2019-12-14] MEDS: lithium carbonate 150mg capsule PO SCH ×2 (08:16→19:45)
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
[2019-12-14] MEDS: NICOTINE POLACRILEX 2 MG LOZENGE BC PRN (18:50)
[2019-12-14 20:31] VITALS: BP 139/62
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
[2019-12-15 07:35] VITALS: BP 116/66
[2019-12-15] MEDS: lithium carbonate 150mg capsule PO SCH ×2 (07:43→20:23)
[2019-12-15] MEDS: divalproex sod 250mg ER (24-hour) tablet PO SCH ×2 (07:44→20:23)
[2019-12-15] MEDS: vitamin D (cholecalciferol) 1,000 unit tablet PO SCH (07:44)
[2019-12-15] MEDS: NICOTINE POLACRILEX 2 MG LOZENGE BC PRN ×2 (11:55→15:45)
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
[2019-12-15 20:00] VITALS: BP 153/96
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
[2019-12-16 08:00] VITALS: BP 115/60
[2019-12-16] MEDS: divalproex sod 250mg ER (24-hour) tablet PO SCH ×2 (08:10→20:09)
[2019-12-16] MEDS: lithium carbonate 150mg capsule PO SCH ×2 (08:11→20:09)
[2019-12-16] MEDS: vitamin D (cholecalciferol) 1,000 unit tablet PO SCH (08:11)
--- NOTE | 2019-12-16 12:32 | NUR ---
F/u (12/15): Pt PO 75-100% avg meals meeting needs. LBM 12/15. Will continue to monitor. Rec: 1. Continue regular diet with double protein TID per diet order 2. almond milk TIDWM instead of ONS per pt preferences 3. Bowel care PRN 4. weekly weights Addendum: 12/16/19 at [address] Amended: Links added.
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
[2019-12-16 20:22] VITALS: BP 137/62
[2019-12-16] MEDS: zolpidem 5mg tablet PO PRN (23:13)
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
[2019-12-17 08:00] VITALS: BP 112/60
[2019-12-17] MEDS: vitamin D (cholecalciferol) 1,000 unit tablet PO SCH (08:19)
[2019-12-17] MEDS: divalproex sod 250mg ER (24-hour) tablet PO SCH ×2 (08:19→20:09)
[2019-12-17] MEDS: lithium carbonate 150mg capsule PO SCH ×2 (08:19→20:09)
--- NOTE | 2019-12-17 10:00 | NUR ---
Group Therapy: Process Group This Clinicians goals for this process group were as follows: (1) Ask scaling questions about Patients current anxiety, depression, and irritability symptoms as a check-in. (2) Share psychoeducation about the importance of being able to identify regular activities, support people, and thoughts (Anchors) that contribute to mental health well-being and stability. (3) Share psychoeducation about how the gradual removal of said activities, people and behaviors may lead to the erosion of mental well-being and stability. (4) Encourage patients to identify support anchors that they need to maintain in their lives that will promote their mental and emotional well-being. (5) Engage Patients in discussion of the topics shared within the group milieu. Patient identified experiencing the following levels of anxiety, depression, and anger/irritability while present in the group milieu. (0-low; 10-high). Anxiety: 0/10 Depression: 0/10 Anger/irritability: 0/10 Patient presented as properly oriented x4 during the process group. Patient was dressed in nondescript, personal clothing that were appropriate within the milieu. He wore a dark t-shirt and jony blue jeans. Psychomotor activity was unremarkable. Patient quietly read a book during portions of the process group, which did not disrupt the flow of the process group in any way. Patient's thought content was clear, and concrete. Patient's thought process was clear, coherent, and linear. This Clinician did not observe Patient responding to any internal stimuli during session. The rate, latency, and tone of Client's speech was within normal limits. Patient maintained regular eye contact with this Clinician. Patient presented in calm euthymic mood, with congruent affect during the process group. Patient presented as open, cooperative, verbally engaged and nonobtrusive within the group milieu. When asked which emotional grounding interventions Patient frequently utilized to maintain optimal/baseline mental health, he stated that he enjoyed playing, "Video games," because it engaged his mind in a "strategic" way in which he could problem-solve to advance in the game. He mentioned that sometimes he would adjust the difficulty of a game to give him a greater challenge. Patient also stated that he enjoyed thinking about "Spirituality," and "Dimensions," as another mental activity that helped him to focus on occasion. Marcus Kennedy MA, AUTO DRIVER Addendum: 12/17/19 at 1120 by Marcus ARANA Amended: Links added.
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
[2019-12-17 20:24] VITALS: BP 151/86
[2019-12-17] MEDS: zolpidem 5mg tablet PO PRN (21:10)
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
[2019-12-18] MEDS: lithium carbonate 150mg capsule PO SCH ×2 (07:41→20:54)
[2019-12-18] MEDS: divalproex sod 250mg ER (24-hour) tablet PO SCH ×2 (07:41→20:55)
[2019-12-18] MEDS: vitamin D (cholecalciferol) 1,000 unit tablet PO SCH (07:41)
[2019-12-18 07:55] VITALS: BP 132/82
--- NOTE | 2019-12-18 10:00 | NUR ---
Group Therapy: Process Group This Clinicians goal for this process group were as follows: (1) Share psychoeducation about core beliefs and how these beliefs shapes how one views reality. (2) Compare and contrast how people with different core beliefs might interpret an identical situation differently. (3) Discuss how changing negative core beliefs to more balanced, helpful, and rational alternatives can lead to improved behaviors and mood. (4) Process Clients thoughts and reflections on this topic within the group milieu. Patient identified experiencing the following levels of anxiety, depression, and anger/irritability while present in the group milieu (0-low; 10-High). Anxiety: 0/10 Depression: 0/10 Anger/irritability: 0/10 Patient presented as properly oriented x4 during the process group. Patient was dressed in nondescript, personal clothing that were appropriate within the milieu. He wore a black printed t-shirt and black jony jeans. Psychomotor activity was unremarkable. Patient's thought content was clear, and concrete. Patient's thought process was clear, coherent, and linear. This Clinician did not observe Patient responding to any internal stimuli during session. The rate, latency, and tone of Client's speech was within normal limits. Patient maintained regular eye contact with this Clinician. Patient presented in calm euthymic mood, with congruent affect during the process group. Patient presented as open and cooperative, and was verbally engaged and nonobtrusive within the group milieu. Patient shared insightful comments during the discussion on core beliefs about the importance of having balanced thoughts, which would allow a person to have the cognitive flexibility to adequately reflect on a real-life situation in the moment. For example, he mentioned that if he engaged in a behavior over which he felt remorseful, then he may think to himself, "I'm a bad person;" however, that thinking would need to be balanced with the belief that a person is capable of righting wrongs and making amends so that one could changed undesired behaviors to more desirable alternatives. This Clinician observed the tone of Patient's voice shari on one occasion, when he commented on not being hesitant at all to, "Rebuke" anyone--whether a close family member or friend, to a stranger--if they hindered his progress, his vision of himself, or his intentions for his life. Marcus Kennedy MA, SUPERVISOR MACHINE SETTER Addendum: 12/18/19 at 1129 by Marcus ARANA Amended: Links added.
[2019-12-18] MEDS: NICOTINE POLACRILEX 2 MG LOZENGE BC PRN (14:22)
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
[2019-12-18 20:17] VITALS: BP 150/78
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
[2019-12-19 08:00] VITALS: BP 123/66
[2019-12-19] MEDS: divalproex sod 250mg ER (24-hour) tablet PO SCH ×2 (08:17→21:08)
[2019-12-19] MEDS: vitamin D (cholecalciferol) 1,000 unit tablet PO SCH (08:17)
[2019-12-19] MEDS: lithium carbonate 150mg capsule PO SCH ×2 (08:18→21:08)
--- NOTE | 2019-12-19 10:00 | NUR ---
Group Therapy: Process Group This Clinicians goals for this process group were as follows: (1) Ask scaling questions about patients current anxiety, depression, and irritability symptoms as a check-in. (2) Share psychoeducation about emotional relaxation techniques with patients, including information on: mindfulness, meditation controlled breathing, progressive muscle relaxation, guided visualization. (3) Model and practice controlled breathing, progressive muscle relaxation, and guided visualization with patients within the group milieu. (4) Process patients comments and reflections on the before-mentioned activities after they have participated in them. Patient presented as properly oriented x4 during the process group. Patient was dressed in nondescript, black printed t-shirt and [facility] scrub bottoms. He also wore black sandals with black socks. Psychomotor activity was unremarkable. Patient's thought content was clear, and concrete. Patient's thought process was clear, coherent, and linear. This Clinician did not observe Patient responding to any internal stimuli during session. The rate, latency, and tone of Client's speech was within normal limits. Patient maintained regular eye contact with this Clinician. Patient presented in calm euthymic mood, with congruent affect during the process group. Patient presented as open and cooperative, and was verbally engaged and nonobtrusive within the group milieu. Patient shared that he actively engages in attempts to practice mindfulness and meditation on a regular basis. He shared that it was important for him to practice meditation in total silence, or he find it very difficult to focus. Patient interacted well with his peers. He nonobtrusively colored a mandala as a grounding activity during the discussion of emotional relaxation techniques. Per this Clinician's impression--based on his overall experiences in the group milieu with Patient--the emphasis on mindfulness, meditation, in conjunction with an assortment of emotional relaxation techniques incorporated into those modalities, may assist Patient in learning and incorporating adaptive emotional self-regulation skills. Marcus Kennedy MA, VICKY Addendum: 12/19/19 at 1129 by Marcus Kennedy SS Amended: Links added.
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
[2019-12-19 20:27] VITALS: BP 142/85
[2019-12-19] MEDS: zolpidem 5mg tablet PO PRN (21:56)
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
[2019-12-20 07:33] VITALS: BP 112/56
[2019-12-20] MEDS: divalproex sod 250mg ER (24-hour) tablet PO SCH ×2 (08:11→20:38)
[2019-12-20] MEDS: lithium carbonate 150mg capsule PO SCH ×2 (08:11→20:39)
[2019-12-20] MEDS: vitamin D (cholecalciferol) 1,000 unit tablet PO SCH (08:11)
--- NOTE | 2019-12-20 10:00 | NUR ---
Group Therapy: Process Group This Clinicians goal for this process group were as follows: (1) Introduce and provide psychoeducation on Thomas ABC method. (2) Practice working through Thomas ABC method using examples provided by this Clinician. (3) Encourage Patients to process some of their own reoccurring situations utilizing Thomas ABC methodology. (4) Process Clients thoughts and reflections on this topic within the group milieu. Patient presented as properly oriented x4 during the process group. Patient was dressed in nondescript, black t-shirt with [facility] scrub bottoms within the milieu. Psychomotor activity was unremarkable. This Clinician did not observe Patient responding to any internal stimuli during session. Patient presented in calm euthymic mood, with congruent affect during the process group. He arrived approximately 15 minutes after the start of the process group. He did not sit with other patients within the milieu. Instead, this Clinician observed that he sat in the back of the room and quietly interacted with milieu staff. He left the process group after approximately 7-10 minutes without contributing to the discussion of Thomas' ABC methodology. This Clinician did not have the opportunity to ask Patient scaling questions about anxiety, depression, and anger/irritability symptoms. Marcus Kennedy MA, VICKY Addendum: 12/20/19 at 1136 by Marcus Kennedy SS Amended: Links added.
[2019-12-20] MEDS: NICOTINE POLACRILEX 2 MG LOZENGE BC PRN (12:10)
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
[2019-12-20 19:23] VITALS: BP 124/81
[2019-12-20] MEDS: zolpidem 5mg tablet PO PRN (22:03)
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
[2019-12-21 07:04] VITALS: BP 130/57
[2019-12-21] MEDS: vitamin D (cholecalciferol) 1,000 unit tablet PO SCH (08:33)
[2019-12-21] MEDS: lithium carbonate 150mg capsule PO SCH ×2 (08:34→20:17)
[2019-12-21] MEDS: divalproex sod 250mg ER (24-hour) tablet PO SCH ×2 (08:34→20:16)
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
[2019-12-21 20:00] VITALS: BP 143/92
[2019-12-21] MEDS: zolpidem 5mg tablet PO PRN (20:17)
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
[2019-12-22 07:00] VITALS: BP 106/52
[2019-12-22] MEDS: divalproex sod 250mg ER (24-hour) tablet PO SCH ×2 (08:30→20:37)
[2019-12-22] MEDS: lithium carbonate 150mg capsule PO SCH ×2 (08:30→20:37)
[2019-12-22] MEDS: vitamin D (cholecalciferol) 1,000 unit tablet PO SCH (08:30)
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
[2019-12-22 20:00] VITALS: BP 146/77
[2019-12-22] MEDS: zolpidem 5mg tablet PO PRN (20:37)
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
[2019-12-23 08:02] VITALS: BP 114/61
[2019-12-23] MEDS: divalproex sod 250mg ER (24-hour) tablet PO SCH ×2 (08:34→20:12)
[2019-12-23] MEDS: lithium carbonate 150mg capsule PO SCH ×2 (08:34→20:13)
[2019-12-23] MEDS: vitamin D (cholecalciferol) 1,000 unit tablet PO SCH (08:34)
[2019-12-23] MEDS: NICOTINE POLACRILEX 2 MG LOZENGE BC PRN ×2 (12:55→15:18)
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
[2019-12-23] MEDS: zolpidem 5mg tablet PO PRN (20:13)
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
[2019-12-24 08:00] VITALS: BP 130/49
[2019-12-24] MEDS: lithium carbonate 150mg capsule PO SCH ×2 (08:25→20:14)
[2019-12-24] MEDS: vitamin D (cholecalciferol) 1,000 unit tablet PO SCH (08:26)
[2019-12-24] MEDS: divalproex sod 250mg ER (24-hour) tablet PO SCH ×2 (08:26→20:12)
--- NOTE | 2019-12-24 10:00 | NUR ---
Group Therapy: Process Group This Clinicians goal for this process group were as follows: (1) Ask scaling questions about patients current anxiety, depression, and irritability symptoms as a check-in (2) Introduce and provide psychoeducation on distress tolerance skills. (2) Introduce the concept of radical acceptance and using our senses to self-soothe. (3) Share the acronym, IsidoroE Activities; Contributing; Comparisons; Emotions; Pushing Away; Thoughts; and Sensations (4) Process Clients thoughts and reflections on this topic within the group milieu. Patient identified experiencing the following levels of anxiety, depression, and anger/irritability while present in the group milieu (0-low; 10-High). Anxiety: 2/10 Depression: 0/10 Anger/irritability: 0/10 Patient presented as properly oriented x4 during the process group. Patient was dressed in a [facility] scrub top and pineda jogging pants that were appropriate within the milieu. Psychomotor activity was unremarkable. Patient's thought content was clear, and concrete. Patient's thought process was clear, coherent, and linear. As this Clinician introduced the topic of discussion for this process group--radical acceptance, and distraction techniques to temporarily reduce the acuity of unwanted feelings of emotional escalation--Patient reported that this was a difficult topic for him to discuss, due to his personal awareness of issues that he is working on in his life. Hence, he shared that he might have challenges sitting through the whole group. This Clinician thanked Client for his transparency, and understood that he would take appropriate actions to minimize his distress during the process group--mentioning that it was ok if he felt the need to leave the group. That being said, Patient maintained in an adaptive, and appropriate way during the process group and did not leave, except for a brief moment when he got some water to drink. This Clinician did not observe Patient responding to any internal stimuli during session. The rate, latency, and tone of Patients speech was within normal limits. Patient maintained regular eye contact with this Clinician. Patient presented in calm euthymic mood, with congruent affect during the process group. Patient presented as open and cooperative, and was verbally engaged and nonobtrusive within the group milieu. Patient shared that though he is getting better at controlling the behaviors in question, he acknowledges that he sometimes struggles behaviorally after he has become emotionally escalated to the point where he has a hard time thinking rationally and clearly. He shared that he is working to identify how to avoid becoming triggered to that point, but once he gets to that point it is very hard to be calm and reasonable. Patient stated that before he becomes emotionally escalated he has more of an ability to "turn away," from thoughts, feelings, and behaviors that could further escalate him; however, after he becomes emotionally escalated he wants to "validate" the thoughts, feelings, and behaviors that led to him losing control and becoming emotionally escalated. Marcus Kennedy MA, VICKY Addendum: 12/24/19 at 1149 by Marcus Kennedy Amended: Links added.
--- NOTE | 2019-12-24 11:50 | NUR ---
PLACEMENT Spoke to Crystal, Public Guardian ([phone]), to advocate for [facility] and [facility] or [facility] level of care for Yfn. TAD office requested 2 weeks of notes to send to [facility] as they may have a bed. Crystal reported Yfn has been denied at [facility] and [place] already. She requested 2 weeks of notes to review so she can discuss with the Public Guardian team. Asked if [facility] could possibly evaluate Yfn for appropriate level of care. Faxed 2 weeks of notes to Crystal at Fax# [phone]. VICKY [place]
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
--- NOTE | 2019-12-24 14:13 | NUR ---
Reassessment: Patient's PO intake fluctuates, documented with occasional 25-50% PO intake though mostly with 75-100% PO intake while receiving double protein TID meeting nutrient needs. LBM 12/22. No further nutrition intervention warranted at this time. Will continue to follow. Rec: 1. Continue regular diet with double protein TID per diet order 2. almond milk TIDWM instead of ONS per pt preferences 3. Bowel care PRN 4. weekly scaled weights Addendum: 12/24/19 at [address] Amended: Links added.
--- NOTE | 2019-12-24 17:33 | NUR ---
Continued Group Art Therapy and 1:1 Consultation: Patient was responsive to the exercise, choosing Anxiety v.s. Calm. Patient did at one point, choose to appropriately leave the group milieu,being distracted by another patient who was talking non-stop. He went to his room and completed the exercise,bringing it back to share 1:1 with this therapist when completed. Patient remains focused on being the "best he can be, however,remains anxious re: his upcoming D/C and placement. His hope is that his hard work and focus, having increased coping skills development while in treatment at [facility] will be recognized and further assist in his progressive movement towards a less restrictive living environment. Patient has been an integral component of the group art therapy sessions over the past two months, being positive and supportive with his peers. Francoise Olson MA., TALENT DEVELOPMENT SPECIALIST #[id number] [facility], Art Therapist Addendum: 12/24/19 at 1736 by Francoise ARANA Amended: Links added.
[2019-12-24 20:00] VITALS: BP 154/83
[2019-12-24] MEDS: zolpidem 5mg tablet PO PRN (22:15)
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
[2019-12-25 08:36] VITALS: BP 111/60
[2019-12-25] MEDS: vitamin D (cholecalciferol) 1,000 unit tablet PO SCH (08:51)
[2019-12-25] MEDS: divalproex sod 250mg ER (24-hour) tablet PO SCH ×2 (08:51→20:05)
[2019-12-25] MEDS: lithium carbonate 150mg capsule PO SCH ×2 (08:51→20:06)
--- NOTE | 2019-12-25 10:00 | NUR ---
Group Therapy: Process Group This Clinicians goal for this process group were as follows: (1) Ask scaling questions about Patients current anxiety, depression, and irritability symptoms as a check-in. (2) Provide psychoeducation on differences between passive, passive-aggressive, assertive, and aggressive forms of communication. (3) Provide psychoeducation on fair fighting rules to illustrate principles of assertive communication. (4) Process Patients thoughts and reflections on this topic within the group milieu. Patient identified experiencing the following levels of anxiety, depression, and anger/irritability while present in the group milieu (0-low; 10-High). Anxiety: 0/10 Depression: 0/10 Anger/irritability: 0/10 Patient presented as properly oriented x4 during the process group. Patient was dressed in nondescript, personal clothing that were appropriate within the milieu. He wore a dark, printed t-shirt, with dark pineda jony jeans. Psychomotor activity was unremarkable. Patient's thought content was clear, and concrete. Patient's thought process was clear, coherent, and linear. This Clinician did not observe Patient responding to any internal stimuli during session. The rate, latency, and tone of Patients speech was within normal limits. Patient maintained regular eye contact with this Clinician. Patient presented in calm euthymic mood, with congruent affect during the process group. Patient presented as open and cooperative, and was verbally engaged and nonobtrusive within the group milieu. Patient shared numerous insightful comments about strategies that one could employ to reduce the likelihood that one would enter into a conversation marked by maladaptive conflict and verbal argumentation. Patient noted that sometimes he has had to walk away from residents in IMDs when it became clear that talking through an issue would be unproductive. Patient also identified that it was not only important to be able to identify what he was feeling personally in the midst of a potential conflict, or disagreement, but that it was also important to try to understand what the other person was thinking and feeling in order to be able to listen effectively to them. This Clinician validated this point and praised Patient for this insight. Marcus Kennedy MA, MEAT CUTTER Addendum: 12/26/19 at 0823 by Marcus ARANA Amended: Links added.
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
[2019-12-25 20:28] VITALS: BP 156/92
[2019-12-25] MEDS: NICOTINE POLACRILEX 2 MG LOZENGE BC PRN (21:40)
[2019-12-25] MEDS: zolpidem 5mg tablet PO PRN (22:06)
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
[2019-12-26] MEDS: divalproex sod 250mg ER (24-hour) tablet PO SCH ×2 (07:43→19:51)
[2019-12-26] MEDS: lithium carbonate 150mg capsule PO SCH ×2 (07:43→19:50)
[2019-12-26] MEDS: vitamin D (cholecalciferol) 1,000 unit tablet PO SCH (07:43)
[2019-12-26 08:09] VITALS: BP 114/60
--- NOTE | 2019-12-26 10:00 | NUR ---
Group Therapy: Process Group This Clinicians goal for this process group were as follows: (1) Ask scaling questions about patients current anxiety, depression, and irritability symptoms as a check-in. (2) Provide psychoeducation on grounding activities as a means to reduce the acuity of unwanted mental health symptoms. (3) Introduce mandalas as one such activity for group participation within the milieu. (4) Check-in with patients during the coloring activity to reinforce the importance of engaging in adaptive grounding activities. Patient identified experiencing the following levels of anxiety, depression, and anger/irritability while present in the group milieu (0-low; 10-High). Anxiety: 0/10 Depression: 2/10 Anger/irritability: 0/10 Patient presented as properly oriented x4 during the process group. Patient was dressed in nondescript, personal clothing that were appropriate within the milieu. He wore a dark printed t-shirt and pineda jony jeans. Psychomotor activity was unremarkable. Patient's thought content was clear, and concrete. Patient's thought process was clear, coherent, and linear. This Clinician did not observe Patient responding to any internal stimuli during session. The rate, latency, and tone of Patients speech was within normal limits. Patient maintained regular eye contact with this Clinician. Patient presented in calm euthymic mood, with congruent affect during the process group. Patient presented as open and cooperative, and was nonobtrusive within the group milieu. At the beginning of the process group, this Clinician dropped some markers within the group room that he had carried with him to allow the patients a means to color mandalas, which was the example of an emotional grounding activity to assist one in the practice of calming down and self-soothing. Patient took time to assist this Clinician in picking up the markers, which this Clinician personally thanked him for. Additionally, this Clinician thanked Patient for his verbal attempts in yesterday's process group to provide adaptive thoughts to redirect a fellow patient who was becoming emotionally escalated, though--per this Clinician's impression--said Patient was unable to receive the appropriate feedback. Patient stated that he, "Appreciated," this Clinician's words. Patient asked if he could do the coloring work in a different room, as a personal grounding exercise. This Clinician answered yes to this request. Patient took several copies of the mandalas that this Clinician brought with him, along with some markers, and quietly left the process group. He returned once approximately 35 minutes into the process group to exchange the markers that he had with other markers that he took with him. Marcus Kennedy MA, PERSONAL CARE AID Addendum: 12/26/19 at 1154 by Marcus Kennedy SS Amended: Links added.
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
[2019-12-26] MEDS: NICOTINE POLACRILEX 2 MG LOZENGE BC PRN (19:03)
[2019-12-26 20:00] VITALS: BP 140/69
[2019-12-26] MEDS: zolpidem 5mg tablet PO PRN (21:38)
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
[2019-12-27 07:23] VITALS: BP 122/59
[2019-12-27] MEDS: divalproex sod 250mg ER (24-hour) tablet PO SCH ×2 (08:50→19:49)
[2019-12-27] MEDS: lithium carbonate 150mg capsule PO SCH ×2 (08:50→19:49)
[2019-12-27] MEDS: vitamin D (cholecalciferol) 1,000 unit tablet PO SCH (08:51)
--- NOTE | 2019-12-27 10:00 | NUR ---
Group Therapy: Process Group This Clinicians goals for this process group were as follows: (1) Ask scaling questions about Patients current anxiety, depression, and irritability symptoms as a check-in. (2) Share psychoeducation about emotional escalation as it relates to stress and negative symptoms, Fight, flight, freeze. (2) Provide psychoeducation on the STOPP acronym: Stop, Take a Breath, Observe the situation, Put things into perspective, and, Practice what works. (3) Share psychoeducation on principles of mindfulness and emotional relaxation techniques that Patients may utilize to reduce the acuity of unwanted emotional escalation. (5) Process Clients thoughts and reflections on this topic within the group milieu. Patient identified experiencing the following levels of anxiety, depression, and anger/irritability while present in the group milieu (0-low; 10-High). Anxiety: 0/10 Depression: 0/10 Anger/irritability: 0/10 Patient presented as properly oriented x4 during the process group. Patient was dressed in a black t-shirt, and black jony jeans that were appropriate within the milieu. Psychomotor activity was unremarkable. Patient's thought content was clear, and concrete. Patient's thought process was clear, coherent, and linear. This Clinician did not observe Patient responding to any internal stimuli during session. The rate, latency, and tone of Patients speech was within normal limits. Patient maintained regular eye contact with this Clinician. Patient presented in calm euthymic mood, with congruent affect during the process group. Patient presented as open and cooperative, and was verbally engaged and nonobtrusive within the group milieu. Patient was present for approximately the first 10 minutes of the process group. During that time he made numerous insightful comments about what symptoms of maladaptive emotional escalation might look like in the context of depression, anxiety, and anger/irritability symptoms. More specifically, he noted that if someone was at a 10/10 in their depression symptoms then it would be likely that one would entertain the thoughts of suicide. He shared that if a person was at a 10/10 in their anxiety symptoms then a person might be in a " position." Patient, quietly left the group milieu after about ten minutes as another patient was verbalizing his thoughts in a loud way. He did not return. Marcus Kennedy MA, WELDER MACHINE OPERATOR Addendum: 12/27/19 at 1153 by Marcus ARANA Amended: Links added.
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
[2019-12-27] MEDS: NICOTINE POLACRILEX 2 MG LOZENGE BC PRN (18:55)
[2019-12-27 20:08] VITALS: BP 122/67
[2019-12-27] MEDS: zolpidem 5mg tablet PO PRN (21:48)
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
[2019-12-28] MEDS: lithium carbonate 150mg capsule PO SCH ×2 (07:59→19:27)
[2019-12-28] MEDS: divalproex sod 250mg ER (24-hour) tablet PO SCH ×2 (08:00→19:26)
[2019-12-28] MEDS: vitamin D (cholecalciferol) 1,000 unit tablet PO SCH (08:00)
[2019-12-28 08:10] VITALS: BP 111/61
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
[2019-12-28 19:32] VITALS: BP 157/79
[2019-12-28] MEDS: zolpidem 5mg tablet PO PRN (20:51)
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
[2019-12-29] MEDS: vitamin D (cholecalciferol) 1,000 unit tablet PO SCH (08:04)
[2019-12-29] MEDS: lithium carbonate 150mg capsule PO SCH ×2 (08:05→20:29)
[2019-12-29] MEDS: divalproex sod 250mg ER (24-hour) tablet PO SCH ×2 (08:05→20:27)
[2019-12-29 08:34] VITALS: BP 117/54
--- NOTE | 2019-12-29 09:49 | NUR ---
F/u (12/28): Pt PO 75-100% avg regular diet w/ double proteins meeting needs. LBM 12/27. No nutrition concerns at this time. Will continue to monitor. Rec: 1. Continue regular diet with double protein TID per diet order 2. almond milk TIDWM instead of ONS per pt preferences 3. Bowel care PRN 4. weekly scaled weights Addendum: 12/29/19 at [address] Amended: Links added.
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
[2019-12-29] MEDS: NICOTINE POLACRILEX 2 MG LOZENGE BC PRN (16:26)
[2019-12-29 20:00] VITALS: BP 165/75
[2019-12-29] MEDS: traZODone 50mg tablet PO SCH (20:28)
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
[2019-12-30 08:00] VITALS: BP 119/61
[2019-12-30] MEDS: lithium carbonate 150mg capsule PO SCH ×2 (08:21→20:09)
[2019-12-30] MEDS: divalproex sod 250mg ER (24-hour) tablet PO SCH ×2 (08:21→20:09)
[2019-12-30] MEDS: vitamin D (cholecalciferol) 1,000 unit tablet PO SCH (08:22)
--- NOTE | 2019-12-30 10:00 | NUR ---
Group Therapy: Process Group This Clinicians goal for this process group were as follows: (1) Ask scaling questions about Patients current anxiety, depression, and irritability symptoms as a check-in. (2) Provide psychoeducation on emotional and situational stressors. (3) Discuss thoughts and feelings that patients experience when they have experienced an emotional and/or situational stressor. (4) Provide psychoeducation on interventions, as actions patients can take to reduce feelings of emotional escalation caused by situational and emotional stressors. (5) Process Patients thoughts and reflections on this topic within the group milieu. Patient arrived to the process group approximately 15 minutes after the beginning of the process group. Hence, this Clinician was unable to check in with Patient regarding his impression of his anxiety, depression, and anger/irritability symptoms. Patient presented as properly oriented x4 during the process group. Patient was dressed in a black t-shirt, and pineda jony jeans that were appropriate within the milieu. Psychomotor activity was unremarkable. Patient's thought content was clear, and concrete. Patient's thought process was clear, coherent, and linear. This Clinician did not observe Patient responding to any internal stimuli during session. The rate, latency, and tone of Patients speech was within normal limits. Patient maintained regular eye contact with this Clinician. Patient presented in calm euthymic mood, with congruent affect during the process group. Patient presented as open and cooperative, and was verbally engaged and nonobtrusive within the group milieu. Patient offered insightful comments about thoughts and feelings that one may experience during different stressful situations, i.e., experiencing hunger, depression/sadness, being tired etc., in addition to being to identify appropriate interventions that one could utilize to reduce the acuity of unwanted mental health symptoms that one could experience in stressful situations. Patient verbalized feelings of frustration about feeling obligated to attend certain groups because of his belief that his Conservator would hold his lack of attendance against him in his quest to reside in a board and care instead of an [facility]. This Clinician validated Patient's feeling of frustration as he was experiencing it from his perspective. Marcus Kennedy MA, CANDY SEPARATOR HARD Addendum: 12/30/19 at 1130 by Marcus ARANA Amended: Links added.
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
[2019-12-30 20:04] VITALS: BP 144/68
[2019-12-30] MEDS: traZODone 50mg tablet PO SCH (20:10)
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
[2019-12-31 07:55] VITALS: BP 109/58
[2019-12-31] MEDS: lithium carbonate 150mg capsule PO SCH ×2 (09:09→22:00)
[2019-12-31] MEDS: divalproex sod 250mg ER (24-hour) tablet PO SCH ×2 (09:09→22:00)
[2019-12-31] MEDS: vitamin D (cholecalciferol) 1,000 unit tablet PO SCH (09:09)
--- NOTE | 2019-12-31 10:00 | NUR ---
Group Therapy: Process Group This Clinicians goals for this process group were as follows: (1) Ask scaling questions about Patients current anxiety, depression, and irritability symptoms as a check-in. (2) Share with Patients psychoeducation about the importance of being able to identify safe, and supportive people who can assist them with their mental and emotional needs. (3) Share psychoeducation on interpersonal boundaries and considerations to assist Patients in developing the ability to discern which groups and individuals will be helpful in assisting them during times of emotional escalation and crisis. (4) Engage Patients in discussion of the topics discussed within the group milieu. Patient identified experiencing the following levels of anxiety, depression, and anger/irritability while present in the group milieu (0-low; 10-High). Anxiety: 0/10 Depression: 0/10 Anger/irritability: 0/10 Patient presented as properly oriented x4 during the process group. Patient was dressed in nondescript, personal clothing that were appropriate within the milieu. He wore a black t-shirt and blue, jony jeans. Psychomotor activity was unremarkable. Patient's thought content was clear, and concrete. Patient appeared to perseverate on a difference of opinion, or a disagreement that he had with this Clinician in the context of circles of trust/developing interpersonal boundaries. More specifically, this Clinician taught that the self is the innermost ramona in a ramona of trust, and that other closest family members and friends could be temporarily brought into that ramona, but naturally have to go back to the second-innermost ramona because they are incapable of reading our thoughts, and feelings--namely, that can't be us. Patient appeared to contest this point, to the point that his comments became obtrusive and disruptive to the process group. Another Patient brought this to Patient's attention--gently challenging his point of view by stating that he was basically agreeing with what this Clinician was trying to say. Patient's thought process began clear, coherent, and linear, but later became marked by flight of ideas, and tangential thinking as he became slightly emotionally escalated, while trying to establish his talking points in the process group. This Clinician did not observe Patient responding to any internal stimuli during session. The rate, and latency of Patient's speech was increased. Patient's tone of voice was within normal limits. Patient maintained regular eye contact with this Clinician. Patient presented in calm mood that varied between euthymic and dysphoric--irritability--with congruent affect during the process group. Patient presented as open, was verbally engaged and obtrusive within the group milieu. Marcus Kennedy MA, LEAD MAINTENANCE TECHNICIAN Addendum: 12/31/19 at 1137 by Marcus Kennedy SS Amended: Links added.
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
--- NOTE | 2019-12-31 14:54 | NUR ---
PLACEMENT Faxed updated notes to [facility] office at their request for placement purposes. VICKY Madera
--- NOTE | 2019-12-31 17:17 | NUR ---
1:1 Counseling Session: Patient met with this therapist for an introductory Brain Spotting Session. Patient was able to relax using the Bi-lateral sound and identified his "felt sense' as that of anxiety. He was able to spot on his anxiety as well as identifying a 'Resource Spot' where he was able to access a sense of peace and calm. Given the distractions on the unit today, this session was cut short. Patient is agreeable to resume a second session and follow-up tomorrow with this therapist. Francoise Olson MA, [facility] #[id number] [facility], [facility], Art Therapist Addendum: 12/31/19 at 1722 by Francoise Olson Amended: Links added.
[2019-12-31 20:00] VITALS: BP 113/71
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
[2020-01-01] MEDS: lithium carbonate 150mg capsule PO SCH ×2 (08:27→21:23)
[2020-01-01] MEDS: divalproex sod 250mg ER (24-hour) tablet PO SCH ×2 (08:27→21:24)
[2020-01-01] MEDS: vitamin D (cholecalciferol) 1,000 unit tablet PO SCH (08:27)
[2020-01-01 08:42] VITALS: BP 108/63
--- NOTE | 2020-01-01 10:00 | NUR ---
Group Therapy: Process Group This Clinicians goals for this process group were as follows: (1) Ask scaling questions about Patients current anxiety, depression, and irritability symptoms as a check-in. (2) Share psychoeducation about automatic thoughts and cognitive distortions. (3) Share psychoeducation on CBT thought-stopping and, thought-reframing. (4) Discuss strategies for identifying negative, unhelpful, and/or irrational thoughts as quickly as possible to avoid unwanted escalation of mental health symptoms. (5) Process Clients thoughts and reflections on this topic within the group milieu. Patient identified experiencing the following levels of anxiety, depression, and anger/irritability while present in the group milieu (0-low; 10-High). Anxiety: 0/10 Depression: 4/10 Anger/irritability: 0/10 Patient presented as properly oriented x4 during the process group. Patient was dressed in nondescript, personal clothing that were appropriate within the milieu. He wore a black t-shirt and pineda athletic pants. Psychomotor activity was unremarkable. Patient's thought content was clear, and concrete. The focus of Patient's thought was very directed to thoughts of being judged unfairly by his Conservator who is not acknowledging, his "Perfect behavior," at the current medical milieu for the past two months. Patient noted that his depression was at a 4/10 because of this. Patient reports that this circumstance is beginning to make him feel, "Unmotivated," because his positive behaviors are not being acknowledged as it relates to his impression that he may not get to attend a board and care. Patient's thought process was clear, coherent, and linear. This Clinician did not observe Patient responding to any internal stimuli during session. The rate, latency, and tone of Patients speech was within normal limits. Patient maintained regular eye contact with this Clinician. Patient presented in calm mood that varied between euthymic and dysthymic (irritability), with congruent affect during the process group. Patient presented as open and cooperative, and was verbally engaged and nonobtrusive within the group milieu. During the discussion on thinking errors, automatic thoughts, and the importance of engaging in thought-stopping and thought-reframing, Patient frequently referenced the thinking errors being addressed in the context of his frustration about not having his good behaviors recognized as it relates to his desire of getting to a board and care. In one exchange with another Patient, said patient asked Patient if the Conservator may be looking at Patient's overall, "History," in making their judgment regarding potential placement. More particularly he was directly asked by this other Patient if the Conservator may be questioning whether or not Patient was being, "Good just to get into a board and care," as opposed to making sustained personal growth regardless of wherever he would be eventually placed. Per this Clinician's impression, Patient appeared to minimize any historical behaviors that may have contributed to him being conserved and placed on an IMD, and displayed some narcissitic traits, in stating that his historical behaviors have been, "Beyond perfect." Patient also referenced alleged awareness of how staff has charted to his positive behaviors. Patient noted his adaptive behaviors in groups as well, while not mentioning the two times that this Clinician asked for him to leave groups due to obtrusive behaviors during his current stay in the medical milieu at [facility]. Marcus Kennedy MA, VICKY Addendum: 01/01/20 at 1132 by Marcus Kennedy SS Amended: Links added.
--- NOTE | 2020-01-01 12:50 | NUR ---
1:1 Met with Yfn at his request. Allowed him to ventilate about his current circumstances and his desire to transition to a Board and Care. He reported feeling like he needs something positive so he does not do anything negative. Discussed him doing a peer led group on Monday afternoons. He reported he likes the idea. Discussed different topics he would like to discuss in his group. He decided sleep hygiene would be the topic this week. Assisted him with researching the subject matter and printed off information from the internet. He reported he will work on what he wants to go over in group and he and principal technical writer will review it tomorrow. Encouraged him to include some sort of activity with the group. VICKY Madera
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
[2020-01-01 20:20] VITALS: BP 141/84
[2020-01-01] MEDS: NICOTINE POLACRILEX 2 MG LOZENGE BC PRN (22:06)
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
[2020-01-02 07:40] VITALS: BP 113/62
[2020-01-02] MEDS: vitamin D (cholecalciferol) 1,000 unit tablet PO SCH (09:01)
[2020-01-02] MEDS: lithium carbonate 150mg capsule PO SCH ×2 (09:01→21:55)
[2020-01-02] MEDS: divalproex sod 250mg ER (24-hour) tablet PO SCH ×2 (09:02→21:56)
--- NOTE | 2020-01-02 10:00 | NUR ---
Group Therapy: Process Group This Clinicians goals for this process group were as follows: (1) Ask scaling questions about Patients current anxiety, depression, and irritability symptoms as a check-in. (2) Share psychoeducation about self-efficacy, and ego strength. (3) Provide psychoeducation on [employer] Drama triangleVictim, Persecutor, Rescuer dynamic. (4) Share psychoeducation on developing positive ego strengthpositive affirmations, positive self-talk, transitioning from a victim of circumstances to a survivor of circumstances. (5) Process Clients thoughts and reflections on this topic within the group milieu. Patient identified experiencing the following levels of anxiety, depression, and anger/irritability while present in the group milieu (0-low; 10-High). Anxiety: -10 Depression: -10 Anger/irritability: -04/26 Patient presented as properly oriented x4 during the process group. Patient was dressed in nondescript, personal clothing that were appropriate within the milieu. He wore a black t-shirt, with pineda pants. He wore one black sock, and one hospital assigned nonslip sock. Psychomotor activity was unremarkable. Patient's thought content was clear, and concrete. Patient's thought process was clear, coherent, and linear. This Clinician did not observe Patient responding to any internal stimuli during session. The rate, latency, and tone of Patients speech was within normal limits. However, the rate, latency, and tone, of his speech often increased when Patient presented information that he appeared passionate about. Patient maintained regular eye contact with this Clinician. Patient presented in calm euthymic mood, with congruent affect during the process group. Patient presented as open and cooperative, and was verbally engaged and nonobtrusive within the group milieu. Patient reported that he was in a very good mood and reported -1/10--0 being optimal--on symptoms of anxiety, depression, and anger/irritability. Patient shared that he had had good, "intellectually stimulating" conversation with certain members of the milieu staff that had brightened his mood. Patient offered insightful comments about how having an "Aha," moment could be what allows a person with low ego strength, who may identify as a victim, to have a transformation to embrace the journey of becoming a survivor, who tends to have higher ego strength. Marcus Kennedy MA, EMPLOYMENT SPECIALIST Addendum: 01/02/20 at 1132 by Marcus ARANA Amended: Links added.
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
[2020-01-02 19:00] VITALS: BP 148/79
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
[2020-01-03 07:50] VITALS: BP 130/73
[2020-01-03] MEDS: divalproex sod 250mg ER (24-hour) tablet PO SCH ×2 (08:44→20:39)
[2020-01-03] MEDS: vitamin D (cholecalciferol) 1,000 unit tablet PO SCH (08:44)
[2020-01-03] MEDS: lithium carbonate 150mg capsule PO SCH ×2 (08:45→20:40)
[2020-01-03] MEDS: NICOTINE POLACRILEX 2 MG LOZENGE BC PRN (09:04)
--- NOTE | 2020-01-03 10:00 | NUR ---
Group Therapy: Process Group This Clinicians goals for this process group were as follows: (1) Ask scaling questions about patients current anxiety, depression, and irritability symptoms as a check-in. (2) Share psychoeducation about three rules of brief solution-focused problem-solving: A) Stop doing what clearly isnt working, B) Do something different, C) If the different activity works, then do more of it. If it doesnt work, then go back to principle A). (3) Identify examples of thoughts, activities, and behaviors that people do that no longer work for them, or they create more problems than solutions. (4) Identify examples of thoughts, activities, and behaviors that may help create better emotional/behavioral outcomes and lead to good solutions to problems. (5) Engage patients in discussion of the topics shared within the group milieu. Patient identified experiencing the following levels of anxiety, depression, and anger/irritability while present in the group milieu (0-low; 10-High). Anxiety: 0/10 Depression: 0/10 Anger/irritability: 0/10 Patient presented as properly oriented x4 during the process group. Patient was dressed in nondescript, personal clothing that were appropriate within the milieu. Initially he wore a dark t-shirt with green hospital scrub bottoms. Very early in the process group he left the milieu briefly and returned in a red and pineda t-shirt with the same scrub bottoms. Psychomotor activity was unremarkable. Patient's thought content was clear, and concrete. Patient's thought process was clear, coherent, and linear. This Clinician did not observe Patient responding to any internal stimuli during session. The rate, latency, and tone of Patients speech was within normal limits. Patient maintained regular eye contact with this Clinician. Patient presented in calm euthymic mood, with congruent affect during the process group. Patient presented as open and cooperative, and was verbally engaged and nonobtrusive within the group milieu. Patient's engagement in the process group discussion on strength-based solution focused problem-solving strategies were insightful and helpful to his peers within the process group. Patient shared his personal experience with auditory and visual hallucinations in the past--which he denied experiencing currently--as a way of providing a fellow Patient who--per this Clinician's impression--was actively responding to internal stimuli proposed solutions that she could do differently to reduce the acuity of these symptoms. Per this Clinician's impression, Patient's comments were well-intended and advanced the topic of the process group in an appropriate way. Patient showed personal insight in addressing mistakes he had made in the past, and on solutions that he was focusing on now to do something, "Differently," to avoid repeating those problems in the future. Marcus Kennedy MA, LMFT Addendum: 01/03/20 at 1138 by Marcus ARANA Amended: Links added.
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
--- NOTE | 2020-01-03 17:35 | NUR ---
Nursing Note: Pt. returned from the dentist and reports appointment went well. New orders for Ibuprofen 800mg PRN and Chlorhexidine Gluconate Oral Rinse BID to start tomorrow AM.
[2020-01-03] MEDS: ibuprofen tablet 400 MG TABLET PO PRN (19:13)
[2020-01-03 20:00] VITALS: BP 171/93
[2020-01-03] MEDS: traZODone 50mg tablet PO PRN (22:03)
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
[2020-01-04 07:34] VITALS: BP 112/54
[2020-01-04] MEDS: lithium carbonate 150mg capsule PO SCH ×2 (08:00→21:27)
[2020-01-04] MEDS: vitamin D (cholecalciferol) 1,000 unit tablet PO SCH (08:01)
[2020-01-04] MEDS: divalproex sod 250mg ER (24-hour) tablet PO SCH ×2 (08:01→21:27)
[2020-01-04] MEDS: chlorhexidine gluconate 15ml Cup****oral rinse MM SCH ×2 (08:46→21:27)
[2020-01-04] MEDS: ibuprofen tablet 400 MG TABLET PO PRN ×2 (14:15→21:48)
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
[2020-01-04 19:24] VITALS: BP 126/67
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
[2020-01-05] MEDS: ibuprofen tablet 400 MG TABLET PO PRN ×2 (05:32→15:26)
[2020-01-05 07:20] VITALS: BP 131/66
[2020-01-05] MEDS: chlorhexidine gluconate 15ml Cup****oral rinse MM SCH ×2 (07:55→21:59)
[2020-01-05] MEDS: lithium carbonate 150mg capsule PO SCH ×2 (07:55→21:59)
[2020-01-05] MEDS: vitamin D (cholecalciferol) 1,000 unit tablet PO SCH (07:55)
[2020-01-05] MEDS: divalproex sod 250mg ER (24-hour) tablet PO SCH ×2 (07:55→21:59)
[2020-01-05] MEDS: acetaminophen 325mg tablet PO PRN (11:47)
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
[2020-01-05 19:43] VITALS: BP 167/86
[2020-01-06] MEDS: acetaminophen 325mg tablet PO PRN (04:27)
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
[2020-01-06 07:25] VITALS: BP 116/62
[2020-01-06] MEDS: ibuprofen tablet 400 MG TABLET PO PRN ×2 (08:04→18:15)
[2020-01-06] MEDS: divalproex sod 250mg ER (24-hour) tablet PO SCH ×2 (08:04→21:36)
[2020-01-06] MEDS: chlorhexidine gluconate 15ml Cup****oral rinse MM SCH ×2 (08:04→20:00)
[2020-01-06] MEDS: vitamin D (cholecalciferol) 1,000 unit tablet PO SCH (08:05)
[2020-01-06] MEDS: lithium carbonate 150mg capsule PO SCH ×2 (08:05→21:35)
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
--- NOTE | 2020-01-06 15:34 | NUR ---
GROUP PLANNING Met with Yfn to review his ideas for a peer led group. He had 20 ideas written down in a notebook. He reviewed each one and went into detail about each idea. Requested he decide on one group idea for this week and create an outline for the group. Suggested planning some sort of activity or a way to get the group members involved. All of the group ideas were appropriate subjects to have a group on. Yfn reported he was excited to do a peer led group and to have something positive to focus on. Decker Operator will meet with Yfn tomorrow to review his group outline. Plan is for him to do his first group on Monday. VICKY Madera
--- NOTE | 2020-01-06 15:37 | NUR ---
F/u (01/05): Pt PO 75-100% avg regular diet w/ double proteins meeting needs. LBM 01/04. No nutrition concerns at this time. Will continue to monitor. Rec: 1. Continue regular diet with double protein TID per diet order 2. almond milk TIDWM instead of ONS per pt preferences 3. Bowel care PRN 4. weekly scaled weights Addendum: 01/06/20 at [address] Amended: Links added.
[2020-01-06 19:11] VITALS: BP 149/89
[2020-01-07] MEDS: acetaminophen 325mg tablet PO PRN (03:05)
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
[2020-01-07 07:35] VITALS: BP 120/73
[2020-01-07] MEDS: chlorhexidine gluconate 15ml Cup****oral rinse MM SCH ×2 (08:00→20:00)
[2020-01-07] MEDS: divalproex sod 250mg ER (24-hour) tablet PO SCH ×2 (08:21→20:47)
[2020-01-07] MEDS: vitamin D (cholecalciferol) 1,000 unit tablet PO SCH (08:21)
[2020-01-07] MEDS: lithium carbonate 150mg capsule PO SCH ×2 (08:21→20:48)
--- NOTE | 2020-01-07 10:00 | NUR ---
Group Therapy: Process Group This Clinicians goals for this process group were as follows: (1) Ask scaling questions about Patients current anxiety, depression, and irritability symptoms as a check-in. (2) Share psychoeducation about the importance of being able to identify regular activities, support people, and thoughts (Anchors) that contribute to mental health well-being and stability. (3) Share psychoeducation about how the gradual removal of said activities, people and behaviors may lead to the erosion of mental well-being and stability. (4) Encourage patients to identify support anchors that they need to maintain in their lives that will promote their mental and emotional well-being. (5) Engage Patients in discussion of the topics shared within the group milieu. Patient identified experiencing the following levels of anxiety, depression, and anger/irritability while present in the group milieu (0-low; 10-High). Anxiety: 0/10 Depression: 0/10 Anger/irritability: 0/10 Patient presented as properly oriented x4 during the process group. Patient was dressed in a black sweatshirt, and [facility] scrub bottoms that were appropriate within the milieu. Psychomotor activity was unremarkable. Patient's thought content was clear, and concrete. At the beginning of the process group, Patient reported frustration that he had with one of his peers who frequently attends the process group. Patient shared his belief that some of the behaviors for which he has been asked to leave group should be infractions that this peer should have been dismissed for. This Clinician thanked Patient for bringing this to his attention, but also encouraged him to take responsibility for his own level of emotional escalation so as to not allow this peer to have undue control over Patient's sense of emotional regulation. Patient's thought process was clear, coherent, and linear. This Clinician did not observe Patient responding to any internal stimuli during session. The rate, latency, and tone of Patients speech was within normal limits. Patient maintained regular eye contact with this Clinician. Patient presented in calm euthymic mood, with congruent affect during the process group. Patient reported that he continued to be in some pain because he had a wisdom tooth out 4 days ago. Patient presented as open and cooperative, and was verbally engaged and nonobtrusive within the group milieu. Patient frequently offered insightful comments regarding personal interventions that he could regularly utilize to assist him in maintaining optimal/baseline mental health. Patient referenced the importance of each individual being able to tailor the list of interventions and coping skills that were discussed in the group in order to identify the most important grounding/anchoring interventions for each of them. Marcus Kennedy MA, ROAD GANG SUPERVISOR Addendum: 01/07/20 at 1119 by Marcus Kennedy SS Amended: Links added.
[2020-01-07] MEDS: ibuprofen tablet 400 MG TABLET PO PRN (13:33)
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
[2020-01-07 19:53] VITALS: BP 130/70
[2020-01-08] MEDS: ibuprofen tablet 400 MG TABLET PO PRN ×3 (00:43→21:23)
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
[2020-01-08] MEDS: chlorhexidine gluconate 15ml Cup****oral rinse MM SCH ×2 (08:00→20:00)
[2020-01-08 08:50] VITALS: BP 108/61
[2020-01-08] MEDS: lithium carbonate 150mg capsule PO SCH ×2 (08:50→21:24)
[2020-01-08] MEDS: vitamin D (cholecalciferol) 1,000 unit tablet PO SCH (08:50)
[2020-01-08] MEDS: divalproex sod 250mg ER (24-hour) tablet PO SCH ×2 (08:50→21:24)
--- NOTE | 2020-01-08 10:00 | NUR ---
Group Therapy: Process Group This Clinicians goal for this process group were as follows: (1) Share psychoeducation about core beliefs and how these beliefs shapes how one views reality. (2) Compare and contrast how people with different core beliefs might interpret an identical situation differently. (3) Discuss how changing negative core beliefs to more balanced, helpful, and rational alternatives can lead to improved behaviors and mood. (4) Process Clients thoughts and reflections on this topic within the group milieu. Patient identified experiencing the following levels of anxiety, depression, and anger/irritability while present in the group milieu (0-low; 10-High). Anxiety: 0/10 Depression: 0/10 Anger/irritability: 0/10 Patient presented as properly oriented x4 during the process group. Patient was dressed in a black printed t-shirt and black jony jeans that were appropriate within the milieu. Psychomotor activity was unremarkable. Patient's thought content was clear, and concrete. Patient's thought process was clear, coherent, and linear. This Clinician did not observe Patient responding to any internal stimuli during session. The rate, latency, and tone of Patients speech was within normal limits. Patient maintained regular eye contact with this Clinician. Patient presented in calm euthymic mood, with congruent affect during the process group. Patient presented as open and cooperative, and was verbally engaged and nonobtrusive within the group milieu. Patient offered numerous insightful comments during the process group discussion on core beliefs. Patient identified that a negative core belief that he would like to change and reframe to a more positive/balanced/rational alternative is that he doesn't "Reflect enough," on occasion. He acknowledged that his intellect was a strength that he possessed that he could use to assist him in the process of engaging in personal self-reflection and contemplation. Patient engaged with his peers in a positive and constructive spirit during the process group. Marcus Kennedy MA, FELT HAT POUNCING OPERATOR HAND Addendum: 01/08/20 at 1119 by Marcus Kennedy Amended: Links added.
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
[2020-01-08 20:19] VITALS: BP 119/77
[2020-01-08] MEDS: traZODone 50mg tablet PO PRN (21:24)
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
[2020-01-09 08:00] VITALS: BP 103/57
[2020-01-09] MEDS: chlorhexidine gluconate 15ml Cup****oral rinse MM SCH ×3 (08:00→19:12)
[2020-01-09] MEDS: divalproex sod 250mg ER (24-hour) tablet PO SCH ×2 (08:12→22:07)
[2020-01-09] MEDS: lithium carbonate 150mg capsule PO SCH ×2 (08:12→22:05)
[2020-01-09] MEDS: vitamin D (cholecalciferol) 1,000 unit tablet PO SCH (08:12)
--- NOTE | 2020-01-09 10:00 | NUR ---
Group Therapy: Process Group This Clinicians goals for this process group were as follows: (1) Ask scaling questions about patients current anxiety, depression, and irritability symptoms as a check-in. (2) Share psychoeducation about emotional relaxation techniques with patients, including information on: mindfulness, meditation controlled breathing, progressive muscle relaxation, guided visualization. (3) Model and practice controlled breathing, progressive muscle relaxation, and guided visualization with patients within the group milieu. (4) Process patients comments and reflections on the before-mentioned activities after they have participated in them. Patient identified experiencing the following levels of anxiety, depression, and anger/irritability while present in the group milieu (0-low; 10-High). Anxiety: 0/10 Depression: 0/10 Anger/irritability: 0/10 Patient presented as properly oriented x4 during the process group. Patient was dressed in a black printed t-shirt, with black jony jeans that were appropriate within the milieu. Psychomotor activity was unremarkable. Patient's thought content was clear, and concrete. Patient's thought process was clear, coherent, and linear. This Clinician did not observe Patient responding to any internal stimuli during session. The rate, latency, and tone of Patients speech was within normal limits. Patient maintained regular eye contact with this Clinician. Patient presented in calm euthymic mood, with congruent affect during the process group. Patient presented as open and cooperative, and was verbally engaged and nonobtrusive within the group milieu. Patient calmly participated in the grounding activity of coloring mandalas as this Clinician shared psychoeducation on different emotional relaxation techniques including: controlled breathing, progressive muscle relaxation and guided visualization exercises. Patient talked appropriately with his peers in the process group. Marcus Kennedy MA, RUG CLEANER Addendum: 01/09/20 at 1125 by Marcus Kennedy Amended: Links added.
--- NOTE | 2020-01-09 14:23 | NUR ---
Assisted Yfn with creating a wish list of items from [employer] hoodies, jeans, shoes, and laptop. Emailed list to his conservator, VICKY Luo
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
[2020-01-09] MEDS: NICOTINE POLACRILEX 2 MG LOZENGE BC PRN (18:51)
[2020-01-09 19:49] VITALS: BP 134/80
[2020-01-09] MEDS: traZODone 50mg tablet PO PRN (22:05)
[2020-01-09] MEDS: ibuprofen tablet 400 MG TABLET PO PRN (22:07)
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
[2020-01-10 07:34] VITALS: BP 107/61
[2020-01-10] MEDS: chlorhexidine gluconate 15ml Cup****oral rinse MM SCH (08:00)
[2020-01-10] MEDS: divalproex sod 250mg ER (24-hour) tablet PO SCH ×2 (08:07→20:13)
[2020-01-10] MEDS: vitamin D (cholecalciferol) 1,000 unit tablet PO SCH (08:08)
[2020-01-10] MEDS: lithium carbonate 150mg capsule PO SCH ×2 (08:08→20:13)
--- NOTE | 2020-01-10 10:00 | NUR ---
Group Therapy: Process Group This Clinicians goal for this process group were as follows: (1) Introduce and provide psychoeducation on Thomas ABC method. (2) Practice working through Thomas ABC method using examples provided by this Clinician. (3) Encourage Patients to process some of their own reoccurring situations utilizing Thomas ABC methodology. (4) Process Clients thoughts and reflections on this topic within the group milieu. Patient identified experiencing the following levels of anxiety, depression, and anger/irritability while present in the group milieu (0-low; 10-High). Anxiety: 0/10 Depression: 0/10 Anger/irritability: 0/10 Patient presented as properly oriented x4 during the process group. Patient was dressed in nondescript, personal clothing that were appropriate within the milieu. He wore a blue t-shirt from [facility], and jony blue jeans. Psychomotor activity was unremarkable. Patient's thought content was clear, and concrete. Patient's thought process was clear, coherent, and linear. This Clinician did not observe Patient responding to any internal stimuli during session. The rate, and latency of Patient's speech was slightly increased. Patient's tone of speech was within normal limits. Patient maintained regular eye contact with this Clinician. Patient presented in calm euthymic mood, with congruent affect during the process group. Patient presented as open and cooperative, and was verbally engaged and nonobtrusive within the group milieu. Patient shared numerous insightful comments about William' ABC CBT modality and appeared to clearly understand the concept that if one could alter unhelpful/unbalanced/irrational believes about a situation, then it may lead to improved emotional consequences. Patient presented in a jovial mood and often directed some ribbing, at a fellow Patient. This Clinician closely monitored this situation to see if said patient responded in a good-natured way to this kidding, which he appeared to do, hence, there was no need for this Clinician to provide verbal redirection to Patient about his comments to this other Patient. Marcus Kennedy MA, [employer] Addendum: 01/10/20 at 1119 by Marcus ARANA Amended: Links added.
--- NOTE | 2020-01-10 13:01 | NUR ---
INTERVIEW WITH [facility] 01/14/20 AT 2:30 PM Yfn has an interview with [facility] staff, Luba Liu, on at 2:30. She will call the nurses station to get transferred to one of the patient phones. Apprised expediter clerk and Yfn of this. VICKY Madera
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
--- NOTE | 2020-01-10 14:57 | NUR ---
PATIENT CONDUCTS GROUP FOR HIS PEERS The patient asked and got approval to lead an educational group on Sleep Hygiene. He was professional and informative. He was able to convey the message and give anecdotal accounts of his own experience. He received praise from multiple staff members and was a job well done.
--- NOTE | 2020-01-10 15:08 | NUR ---
Sat in on Yfn's group. He began the group professionally, letting people know that they could ask questions, and talking about how the group is confidential. He had chill step music that he was playing at a low volume. His voice projected well and was easily heard at the back of the room. He answered all questions appropriately and did not give false information. At the end of the group I praised him and asked him how he liked it. He reported that he liked it and would be willing to do another group so I told him to get ready for next Fridays group. Topics covered: Sleep cycles Shift work Wind down one hour before bed No blue lights 30-60 min before bed Relaxation techniques No sleep in 20 minutes then get up and do something No late afternoon naps, coffee No ETOH, food, or exercise right before bed Weighing leisure time with health Mind/body connection Importance of sleep
[2020-01-10 20:00] VITALS: BP 139/79
[2020-01-10] MEDS: ibuprofen tablet 400 MG TABLET PO PRN (20:51)
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
[2020-01-11] MEDS: vitamin D (cholecalciferol) 1,000 unit tablet PO SCH (07:52)
[2020-01-11] MEDS: divalproex sod 250mg ER (24-hour) tablet PO SCH ×2 (07:52→19:58)
[2020-01-11] MEDS: lithium carbonate 150mg capsule PO SCH ×2 (07:52→19:58)
[2020-01-11 08:00] VITALS: BP 125/62
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
[2020-01-11 20:00] VITALS: BP 123/86
[2020-01-11] MEDS: traZODone 50mg tablet PO PRN (22:54)
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
[2020-01-12] MEDS: divalproex sod 250mg ER (24-hour) tablet PO SCH ×2 (07:56→20:31)
[2020-01-12] MEDS: lithium carbonate 150mg capsule PO SCH ×2 (07:56→20:32)
[2020-01-12] MEDS: vitamin D (cholecalciferol) 1,000 unit tablet PO SCH (07:57)
[2020-01-12 08:00] VITALS: BP 107/60
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
[2020-01-12] MEDS: NICOTINE POLACRILEX 2 MG LOZENGE BC PRN (18:59)
[2020-01-12 19:00] VITALS: BP 157/88
[2020-01-12] MEDS: traZODone 50mg tablet PO PRN (22:51)
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
[2020-01-13] MEDS: divalproex sod 250mg ER (24-hour) tablet PO SCH ×2 (08:05→20:18)
[2020-01-13] MEDS: vitamin D (cholecalciferol) 1,000 unit tablet PO SCH (08:05)
[2020-01-13] MEDS: lithium carbonate 150mg capsule PO SCH ×2 (08:05→20:20)
--- NOTE | 2020-01-13 11:48 | NUR ---
F/u (01/12): Pt PO 75-100% avg regular diet w/ double proteins meeting needs. Last BM 01/10. No nutrition concerns at this time. Will continue to monitor. Rec: 1. Continue regular diet with double protein TID per diet order 2. almond milk TIDWM instead of ONS per pt preferences 3. Bowel care PRN 4. weekly scaled weights Addendum: 01/13/20 at [address] Amended: Links added.
--- NOTE | 2020-01-13 12:50 | NUR ---
CM-Continuity of Care Presenting Issues: Per [facility]'s office, [facility] is requesting current med list & orders, MAR for mos of October-Dec, TB test result & latest Lab report. Interventions: SS printed out MAR covering mos of october-current date, current med list & med orders, and latest lab report & faxed them to [facility]. SS also had t/c Tiny RN and requested that a PPD be placed for pt. Plan: Pt will interview w/[facility] for possible placement tomorrow afternoon. SS will continue to monitor pt's progress, engage w/[facility] & [facility] w/re to placement & dcp activities. Magnolia Rousseau LCSW Addendum: 01/13/20 at 1255 by Magnolia Rousseau Amended: Links added.
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
[2020-01-13 20:00] VITALS: BP 126/62
[2020-01-13] MEDS: traZODone 50mg tablet PO PRN (20:18)
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
[2020-01-14 08:00] VITALS: BP 102/58
[2020-01-14] MEDS: lithium carbonate 150mg capsule PO SCH ×2 (08:12→20:07)
[2020-01-14] MEDS: divalproex sod 250mg ER (24-hour) tablet PO SCH ×2 (08:13→20:07)
[2020-01-14] MEDS: vitamin D (cholecalciferol) 1,000 unit tablet PO SCH (08:13)
--- NOTE | 2020-01-14 09:07 | NUR ---
[facility] downtime [phone]
--- NOTE | 2020-01-14 16:23 | NUR ---
CM Presenting Issues: [facility] from [facility] did not call [facility] for his interview. Interventions: SS had t/c with Mr. Liu, [email or web address] Programs Coordinator-[facility], per t/c pt's interview is rescheduled for tomorrow @ 1:00 PM. SS informed pt & CH RN. Plan: SS will check-in with pt tomorrow after his interview to process his experience with him. Magnolia Rousseau LCSW Addendum: 01/14/20 at 1655 by Magnolia ARANA Amended: Links added.
[2020-01-14] MEDS: NICOTINE POLACRILEX 2 MG LOZENGE BC PRN (17:11)
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
[2020-01-14] MEDS: traZODone 50mg tablet PO PRN (20:08)
[2020-01-14 20:21] VITALS: BP 142/76
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
[2020-01-15] MEDS: lithium carbonate 150mg capsule PO SCH ×2 (07:32→19:49)
[2020-01-15] MEDS: vitamin D (cholecalciferol) 1,000 unit tablet PO SCH (07:32)
[2020-01-15] MEDS: divalproex sod 250mg ER (24-hour) tablet PO SCH ×2 (07:32→19:49)
[2020-01-15 08:00] VITALS: BP 105/57
--- NOTE | 2020-01-15 10:00 | NUR ---
Group Therapy: Process Group This Clinicians goal for this process group were as follows: (1) Ask scaling questions about patients current anxiety, depression, and irritability symptoms as a check-in. (2) Provide psychoeducation on grounding activities as a means to reduce the acuity of unwanted mental health symptoms. (3) Introduce mandalas as one such activity for group participation within the milieu. (4) Check-in with patients during the coloring activity to reinforce the importance of engaging in adaptive grounding activities. Patient identified experiencing the following levels of anxiety, depression, and anger/irritability while present in the group milieu (0-low; 10-High). Anxiety: 0/10 Depression: 0/10 Anger/irritability: 0/10 Patient presented as properly oriented x4 during the process group. Patient was dressed in a black t-shirt, with black jony jeans that were appropriate within the milieu. Psychomotor activity was unremarkable. Patient's thought content was clear, and concrete. Patient's thought process was clear, coherent, and linear. This Clinician did not observe Patient responding to any internal stimuli during session. The rate, latency, and tone of Patients speech was within normal limits. Patient maintained intermittent eye contact with this Clinician. Patient presented in calm mood that varied between euthymic, and mildly dysphoric during the process group with congruent affect. Patient presented as open and cooperative, and was verbally engaged and nonobtrusive within the group milieu. Patient was verbally engaged and participated freely during the process group activity of coloring mandalas as a grounding activity. Patient interacted with his peers appropriately. On one occasion another Patient began laughing as Patient spoke. At the time, this Clinician was unsure as to whether or not this behavior was the response to internal stimuli, or as a behavior to irritate Patient. Patient continued to talk as other said Patient continued to laugh. This Clinician encouraged the other Patient to remain quiet, which only deterred the behavior slightly. Patient verbalized his frustration at the end of the process group for the behavior of this other Patient, which this Clinician quietly listened to. Patient announced it was his birthday. This Clinician wished Patient a happy birthday, and asked him if he had any wishes for his "25 year." Patient indicated that he wanted, a "Smoke." Marcus Kennedy MA, PRODUCT MARKETING EXECUTIVE Addendum: 01/15/20 at 1128 by Marcus ARANA Amended: Links added.
[2020-01-15] MEDS: NICOTINE POLACRILEX 2 MG LOZENGE BC PRN (13:15)
--- NOTE | 2020-01-15 14:03 | NUR ---
Placement Presenting Issues: Pt interviewed w/Luba Liu from [facility] this afternoon and was determined to meet Cory's criteria for placement. Interventions: SS had t/c with Luba Liu [phone], per t/c pt's been accepted transfer is pending available bed. Plan: SS will continue to engage [facility] Public Guardian-Crystal Allen in dcp activities. Magnolia Rousseau LCSW Addendum: 01/15/20 at 1418 by Magnolia ARANA Amended: Links added.
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
[2020-01-15 20:13] VITALS: BP 138/91
[2020-01-15] MEDS: traZODone 50mg tablet PO PRN (21:19)
[2020-01-16] MEDS: lithium carbonate 150mg capsule PO SCH ×2 (07:22→19:59)
[2020-01-16] MEDS: divalproex sod 250mg ER (24-hour) tablet PO SCH ×2 (07:23→19:58)
[2020-01-16] MEDS: vitamin D (cholecalciferol) 1,000 unit tablet PO SCH (07:23)
[2020-01-16] MEDS: mag hydrox/Alum hydrox/simeth 30ml oral suspension PO PRN ×2 (07:25→13:15)
[2020-01-16 08:00] VITALS: BP 123/66
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
[2020-01-16 20:01] VITALS: BP 140/82
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
[2020-01-17] MEDS: divalproex sod 250mg ER (24-hour) tablet PO SCH ×2 (07:24→20:48)
[2020-01-17] MEDS: vitamin D (cholecalciferol) 1,000 unit tablet PO SCH (07:24)
[2020-01-17] MEDS: lithium carbonate 150mg capsule PO SCH ×2 (07:25→20:48)
[2020-01-17 07:56] VITALS: BP 122/64
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
--- NOTE | 2020-01-17 16:40 | NUR ---
CM-Placement Presenting Issues: Pt recently had t/c with Luba Liu, Photographic Process Screen Maker @ [facility], per t/c pt was determined to have met [facility] criteria for admission. Luba contacted SS and requested a video interview w/pt so he can meet pt face-face prior to admission. Interventions: SS had [facility] and coordinated the details of a video meeting with pt, per t/c meeting will take place via ZOOM call, Luba will e-mail SS link to zoom meeting on Monday. Plan: SS will continue to monitor dcp & placement services. Magnolia Rousseau LCSW Addendum: 01/18/20 at 0755 by Magnolia Rousseau Amended: Links added.
[2020-01-17 19:00] VITALS: BP 138/83
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
[2020-01-18 07:30] VITALS: BP 124/71
[2020-01-18] MEDS: divalproex sod 250mg ER (24-hour) tablet PO SCH ×2 (07:53→20:28)
[2020-01-18] MEDS: vitamin D (cholecalciferol) 1,000 unit tablet PO SCH (07:53)
[2020-01-18] MEDS: lithium carbonate 150mg capsule PO SCH ×2 (07:54→20:28)
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
[2020-01-18 19:00] VITALS: BP 141/97
[2020-01-18] MEDS: traZODone 50mg tablet PO PRN (22:04)
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
[2020-01-19 07:42] VITALS: BP 108/60
[2020-01-19] MEDS: divalproex sod 250mg ER (24-hour) tablet PO SCH ×2 (08:09→21:47)
[2020-01-19] MEDS: vitamin D (cholecalciferol) 1,000 unit tablet PO SCH (08:09)
[2020-01-19] MEDS: lithium carbonate 150mg capsule PO SCH ×2 (08:09→21:49)
--- NOTE | 2020-01-19 11:57 | NUR ---
Individual session: Met with pt in the community room,appeared in a positive mood,some what anxious anticipating possibility of being accepted at [facility] in [place].Stated being here at [facility] has been good for him and believes there was a level of maturity that happened here and now has more insight about himself and the importance of self control and making healthier decisions and by working hard here has led him to [facility] that he sees as the next step for his health. ISSAC Rizo
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
[2020-01-19 20:00] VITALS: BP 126/63
[2020-01-19] MEDS: traZODone 50mg tablet PO PRN (21:48)
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
[2020-01-20 07:36] VITALS: BP 111/68
[2020-01-20] MEDS: lithium carbonate 150mg capsule PO SCH ×2 (07:54→21:47)
[2020-01-20] MEDS: divalproex sod 250mg ER (24-hour) tablet PO SCH ×2 (07:54→21:48)
[2020-01-20] MEDS: vitamin D (cholecalciferol) 1,000 unit tablet PO SCH (07:55)
--- NOTE | 2020-01-20 10:00 | NUR ---
Group Therapy: Process Group This Clinicians goals for this process group were as follows: (1) Ask scaling questions about Patients current anxiety, depression, and irritability symptoms as a check-in. (2) Share with Patients psychoeducation about the importance of being able to identify safe, and supportive people who can assist them with their mental and emotional needs. (3) Share psychoeducation on interpersonal boundaries and considerations to assist Patients in developing the ability to discern which groups and individuals will be helpful in assisting them during times of emotional escalation and crisis. (4) Engage Patients in discussion of the topics discussed within the group milieu. Patient identified experiencing the following levels of anxiety, depression, and anger/irritability while present in the group milieu (0-low; 10-High). Anxiety: 4-5/10 Depression: 0/10 Anger/irritability: 0/10 Patient presented as properly oriented x4 during the process group. Patient was dressed in a black t-shirt with pineda jony jeans that were appropriate within the milieu. Psychomotor activity was unremarkable. Patient was doing, "Beat box," sounds with his voice at the beginning of the process group. This Clinician observed Patient on one occasion gripping his forearms with both of his hands and shaking them vigorously on the top of the table. Patient did note that his anxiety symptoms were higher than usual--4-5/10, and he reported feeling nervous because he was going to be discharging soon, he simply didn't know the date. Patient's thought content was clear, and concrete. Patient's thought process was clear, coherent, and linear. This Clinician did not observe Patient responding to any internal stimuli during session. The rate, latency, and tone of Patients speech was within normal limits. Patient maintained regular eye contact with this Clinician. Patient presented in calm euthymic mood, with congruent affect during the process group. Patient presented as open and cooperative, and was verbally engaged and nonobtrusive within the group milieu. Patient offered insightful comments about appropriate information to share interpersonally in the context of questions that one could ask in recruiting safe people with whom they could discuss their mental health situation. Patient did note that he would frequently, "Lie," to people that he didn't trust about how he was doing because he was aware that he did not want to engage in communication with them about his mental health. Patient comments appeared to indicate that he has had bad experiences trusting others with information about himself, which has led him to be very cautious about whom he opens up to. Marcus Kennedy MA, LATHING [employer]PER[employer]OR Addendum: 01/20/20 at 1125 by Marcus Kennedy SS Amended: Links added.
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
--- NOTE | 2020-01-20 14:46 | NUR ---
F/u (01/19): Pt PO 75-100% avg regular diet w/ double proteins meeting needs. Last BM 01/18. No nutrition concerns at this time. Will continue to monitor. Rec: 1. Continue regular diet with double protein TID per diet order 2. almond milk TIDWM instead of ONS per pt preferences 3. Bowel care PRN 4. weekly scaled weights Addendum: 01/20/20 at [address] Amended: Links added.
[2020-01-20 20:03] VITALS: BP 142/81
[2020-01-20] MEDS: traZODone 50mg tablet PO PRN (21:48)
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
[2020-01-21 08:00] VITALS: BP 130/73
[2020-01-21] MEDS: divalproex sod 250mg ER (24-hour) tablet PO SCH ×2 (08:01→22:06)
[2020-01-21] MEDS: lithium carbonate 150mg capsule PO SCH ×2 (08:01→22:07)
[2020-01-21] MEDS: vitamin D (cholecalciferol) 1,000 unit tablet PO SCH (08:02)
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
[2020-01-21 20:56] VITALS: BP 150/78
[2020-01-21] MEDS: traZODone 50mg tablet PO PRN (22:05)
[2020-01-22 07:43] VITALS: BP 131/70
[2020-01-22] MEDS: vitamin D (cholecalciferol) 1,000 unit tablet PO SCH (08:13)
[2020-01-22] MEDS: divalproex sod 250mg ER (24-hour) tablet PO SCH ×2 (08:13→20:12)
[2020-01-22] MEDS: lithium carbonate 150mg capsule PO SCH ×2 (08:14→20:12)
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
--- NOTE | 2020-01-22 16:24 | NUR ---
Placement Presenting Issues: Pt's been accepted @ [facility], [place] [employer] [facility], awaiting d/c date and [facility] to finalize dcp. Interventions: [facility], per [facility]/c pt will be d/c from [facility] on 01/29, will need 30-days worth of meds. Meds can be called into/E-Fax to [facility] (info in [facility]). Per [facility] request, pt can only bring 3 bags of his belongings, pt was not happy about this and wanted to contact [facility], SS informed pt that he can contact his [facility] but not [facility]. Care notified not to give out [facility]' contact info but to re-direct pt to his [facility]. Plan: SS will continue to monitor dcp & placement services. Magnolia Rousseau LCSW Addendum: 01/22/20 at 1637 by Magnolia Rousseau Amended: Links added.
[2020-01-22 20:38] VITALS: BP 137/64
[2020-01-22] MEDS: traZODone 50mg tablet PO PRN (21:13)
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
[2020-01-23 07:27] VITALS: BP 125/77
[2020-01-23] MEDS: vitamin D (cholecalciferol) 1,000 unit tablet PO SCH (07:34)
[2020-01-23] MEDS: lithium carbonate 150mg capsule PO SCH ×2 (07:34→20:14)
[2020-01-23] MEDS: divalproex sod 250mg ER (24-hour) tablet PO SCH ×2 (07:34→20:14)
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
[2020-01-23] MEDS: NICOTINE POLACRILEX 2 MG LOZENGE BC PRN (12:20)
[2020-01-23 20:34] VITALS: BP 165/66
[2020-01-23] MEDS: traZODone 50mg tablet PO PRN (21:58)
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
[2020-01-24 07:34] VITALS: BP 118/67
[2020-01-24] MEDS: divalproex sod 250mg ER (24-hour) tablet PO SCH ×2 (07:54→20:05)
[2020-01-24] MEDS: vitamin D (cholecalciferol) 1,000 unit tablet PO SCH (07:54)
[2020-01-24] MEDS: lithium carbonate 150mg capsule PO SCH ×2 (07:55→20:06)
[2020-01-24 08:00] VITALS: BP 118/67
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
[2020-01-24 19:00] VITALS: BP 160/85
[2020-01-24] MEDS: hydrOXYzine 25 MG tablet PO PRN (20:44)
[2020-01-24] MEDS: traZODone 50mg tablet PO PRN (20:44)
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
[2020-01-25 05:45] VITALS: BP 112/68
[2020-01-25 07:35] VITALS: BP 106/58
[2020-01-25] MEDS: lithium carbonate 150mg capsule PO SCH ×2 (07:52→20:24)
[2020-01-25] MEDS: divalproex sod 250mg ER (24-hour) tablet PO SCH ×2 (07:53→20:24)
[2020-01-25] MEDS: vitamin D (cholecalciferol) 1,000 unit tablet PO SCH (07:53)
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
[2020-01-25 19:00] VITALS: BP 136/79
[2020-01-25] MEDS: hydrOXYzine 25 MG tablet PO PRN (20:24)
[2020-01-25] MEDS: traZODone 50mg tablet PO PRN (20:24)
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
[2020-01-26 06:59] VITALS: BP 106/58
[2020-01-26 08:00] VITALS: BP 106/58
[2020-01-26] MEDS: vitamin D (cholecalciferol) 1,000 unit tablet PO SCH (08:04)
[2020-01-26] MEDS: divalproex sod 250mg ER (24-hour) tablet PO SCH ×2 (08:04→21:09)
[2020-01-26] MEDS: lithium carbonate 150mg capsule PO SCH ×2 (08:05→21:10)
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
[2020-01-26] MEDS: NICOTINE POLACRILEX 2 MG LOZENGE BC PRN (18:54)
[2020-01-26 19:00] VITALS: BP 115/88
[2020-01-26] MEDS: traZODone 50mg tablet PO PRN (22:04)
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
[2020-01-27] MEDS: traZODone 50mg tablet PO PRN ×3 (00:40→21:45)
[2020-01-27 07:36] VITALS: BP 126/70
[2020-01-27] MEDS: lithium carbonate 150mg capsule PO SCH ×2 (08:13→20:42)
[2020-01-27] MEDS: vitamin D (cholecalciferol) 1,000 unit tablet PO SCH (08:13)
[2020-01-27] MEDS: divalproex sod 250mg ER (24-hour) tablet PO SCH ×2 (08:13→20:41)
--- NOTE | 2020-01-27 09:24 | NUR ---
F/u (01/26): Pt PO 75-100% avg regular diet w/ double proteins meeting needs. Last BM 01/25. No nutrition concerns at this time. Will continue to monitor. Rec: 1. Continue regular diet with double protein TID per diet order 2. almond milk TIDWM instead of ONS per pt preferences 3. Bowel care PRN 4. weekly scaled weights Addendum: 01/27/20 at [address] Amended: Links added.
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
[2020-01-27 20:00] VITALS: BP 130/57
[2020-01-27] MEDS: hydrOXYzine 25 MG tablet PO PRN (20:42)
[2020-01-27 20:49] VITALS: BP 130/57
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
[2020-01-28 07:55] VITALS: BP 124/70
[2020-01-28] MEDS: lithium carbonate 150mg capsule PO SCH ×2 (08:33→20:38)
[2020-01-28] MEDS: vitamin D (cholecalciferol) 1,000 unit tablet PO SCH (08:34)
[2020-01-28] MEDS: divalproex sod 250mg ER (24-hour) tablet PO SCH ×2 (10:18→20:34)
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
[2020-01-28 20:26] VITALS: BP 120/82
[2020-01-28] MEDS: hydrOXYzine 25 MG tablet PO PRN (20:34)
[2020-01-28] MEDS: traZODone 50mg tablet PO SCH (20:35)
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
[2020-01-29] MEDS: divalproex sod 250mg ER (24-hour) tablet PO SCH ×2 (07:58→20:33)
[2020-01-29] MEDS: vitamin D (cholecalciferol) 1,000 unit tablet PO SCH (07:59)
[2020-01-29] MEDS: lithium carbonate 150mg capsule PO SCH ×2 (07:59→20:33)
[2020-01-29 08:00] VITALS: BP 112/55
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
[2020-01-29] MEDS ORDERED: TRAZ-256 PO (13:59)
[2020-01-29] MEDS ORDERED: CHOL200013 PO (13:59)
[2020-01-29] MEDS ORDERED: DIVA500T9 PO (13:59)
[2020-01-29] MEDS ORDERED: LITH300C PO (13:59)
--- NOTE | 2020-01-29 15:35 | NUR ---
DISCHARGE 01/30/20 9 am [facility] and [facility] be transported to [facility] He will be transported with another patient on the unit. Please have his items inventoried and ready for picking table worker at 9 AM. Medications have been sent to [facility]. VICKY Madera
[2020-01-29 20:00] VITALS: BP 151/88
[2020-01-29] MEDS: traZODone 50mg tablet PO SCH (20:33)
[2020-01-30] MEDS: hydrOXYzine 25 MG tablet PO PRN (02:02)
--- NOTE | 2020-01-30 03:10 | NUR ---
nursing progress note: pt ambulating in hallway; pleasant & cooperative during initial assessment; denies suicidal or homicidal thoughts; returned to bed after HS medication were given; sleeping at intervals till 0200; atarax given per request & able to return back to sleep
[2020-01-30 07:26] VITALS: BP 124/70
[2020-01-30] MEDS: vitamin D (cholecalciferol) 1,000 unit tablet PO SCH (07:56)
[2020-01-30] MEDS: divalproex sod 250mg ER (24-hour) tablet PO SCH (07:56)
[2020-01-30] MEDS: lithium carbonate 150mg capsule PO SCH (07:57)
--- NOTE | 2020-01-30 09:22 | NUR ---
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 Discharge Instructions reviewed with pt and sent to public guardian. Pt sent with copies. Smoking cessation education provided to pt. All belongings sent with the pt. and he agreed he had all his stuff. Medications sent with pt.
== END 2020-01-30 09:10 | disposition still patient (30) | DRG 750 ==
LOC: ADULT MH 18:33
PROVIDERS: ADMIT Psychiatry & Neurology Psychiatry; ATTEND Psychiatry & Neurology Psychiatry
DX: F25.0 Schizoaffective disorder, bipolar type (principal); F10.10 Alcohol abuse, uncomplicated; E11.9 Type 2 diabetes mellitus without complications; F12.90 Cannabis use, unspecified, uncomplicated; F17.210 Nicotine dependence, cigarettes, uncomplicated; G47.00 Insomnia, unspecified; I10 Essential (primary) hypertension; J45.909 Unspecified asthma, uncomplicated; Z59.0 Homelessness; Z79.899 Other long term (current) drug therapy; Z81.8 Family history of other mental and behavioral disorders; Z83.3 Family history of diabetes mellitus
CPT/HCPCS: 36415; 71045; 80053; 80061; 80164; 80178; 83036; 84443; 85025; 87081; 87635; 99285; Q0177

== ENCOUNTER 2021-04-24 19:21 | Emergency (ER) | payer MEDICARE, MEDICAID ==
[~2021-04-24] VITALS: Ht 185.4 cm; Wt 59.6 kg
[~2021-04-24 19:21] MED LIST changes: -ARIP5TAB14 PO; +CHOL100046 PO; -CHOL50004 PO; -CLON-514 PO; +DIVA250T8 PO; -LIT300C PO; +LITH600C PO; -NICO-731 TOP; -TEMA15CA PO; +TRAZ-251 PO
[2021-04-24 21:04] LABS: URINE AMPHETAMINE SCREEN NEGATIVE (Neg); URINE BARBITUATE SCREEN NEGATIVE (Neg); URINE BENZODIAZEPINES SCREEN NEGATIVE (Neg); URINE CANNABINOID SCREEN POSITIVE (Neg); URINE COCAINE SCREEN NEGATIVE (Neg); URINE METHADONE SCREEN NEGATIVE (Neg); URINE OPIATE SCREEN NEGATIVE (Neg); URINE PHENCYCLIDINE SCREEN NEGATIVE (Neg)
[2021-04-24 21:05] LABS: CLARITY,URINE CLEAR (Clear); COLOR,URINE YELLOW (Yellow); GLUCOSE, URINE NEGATIVE (Neg); KETONES,URINE TRACE mg/dl (Neg); LEUKOCYTE ESTERASE ,URINE NEGATIVE (Neg); NITRITES, URINE NEGATIVE (Neg); OCCULT BLOOD,URINE NEGATIVE (Neg); PROTEIN,URINE 100 mg/dl (Neg); UROBILINOGEN,URINE 0.2 E.U/dL (0.2-1.0)
[2021-04-24 21:07] LABS: UA COLLECTION TYPE CLN CATCH MIDSTREAM
[2021-04-24 21:12] LABS: BACTERIA,URINE NONE SEEN /HPF (Neg); MUCUS STRANDS NONE SEEN /LPF (Neg); RBC,URINE NONE SEEN /HPF (0-2); SQUAMOUS EPITHELIAL CELL,UR FEW /LPF (FEW); WBC,URINE 0-4 /HPF (0-4)
[2021-04-24] MEDS ORDERED: NO HOME MEDS (21:26)
--- NOTE | 2021-04-24 21:26 | NUR ---
The patient was moved to bed 25 in the ER. He is well known to [facility] and has a history of psychiatric hospitalizations. He was last at [facility] from 04/10/20-06/02/2020. Previous diagnosis include bipolar and Narcissistic Personality Disorder. He reports being let off of LPS conservatorship 5-6 months ago. He is homeless. He has not been taking any medications since being taken off LPS conservatorship. He presents as hyperverbal, manic and has a very elevated mood. He has loose associations.
[2021-04-24 21:38] LABS: BASOPHILS % (AUTO) 0.4 % (0-1); EOSINOPHILS # (AUTO) 0.1 X10'3 (0-0.9); EOSINOPHILS % (AUTO) 0.6 % (0-6); HEMATOCRIT 44.4 % (42.0-52.0); HEMOGLOBIN 15.5 g/dl (14.0-17.9); LYMPHOCYTES # (AUTO) 2.2 X10'3 (1.1-4.8); LYMPHOCYTES % (AUTO) 20.3 % (21-51); MEAN CORPUSCULAR HEMOGLOBIN 31.9 PG (27.0-31.0); MEAN CORPUSCULAR HGB CONC 34.8 g/dL (33.0-36.5); MEAN CORPUSCULAR VOLUME 91.6 FL (78-98); MEAN PLATELET VOLUME 8.2 FL (7.4-10.4); MONOCYTES # (AUTO) 0.9 X10'3 (0-0.9); NEUTROPHILS # (AUTO) 7.5 X10'3 (1.8-7.7); NEUTROPHILS % (AUTO) 70.7 % (42-75); PLATELET COUNT 254 X10'3 (140-440); RED BLOOD COUNT 4.85 X10'6 (4.70-6.10); RED CELL DISTRIBUTION WIDTH 13.3 % (11.5-14.5); WHITE BLOOD COUNT 10.7 X10'3 (4.5-11.0)
[2021-04-24] MEDS: divalproex sod 250mg ER (24-hour) tablet PO SCH (21:40)
[2021-04-24] MEDS ORDERED: traZODone 50mg tablet PO SCH (21:40)
--- NOTE | 2021-04-24 21:41 | NUR ---
The patient is refusing medications and states he will only take ativan
[2021-04-24] MEDS: lithium carbonate 150mg capsule PO SCH (21:42)
[2021-04-24 21:48] LABS: ALANINE AMINOTRANSFERASE 43 U/L (12-78); ALBUMIN 4.4 G/DL (3.4-5.0); ALBUMIN/GLOBULIN RATIO 1.5 (1.1-1.5); ALKALINE PHOSPHATASE 53 IU/L (46-116); ANION GAP 11 (8-16); ASPARTATE AMINO TRANSFERASE 46 U/L (10-37); BILIRUBIN,TOTAL 0.4 MG/DL (0.1-1.0); BLOOD UREA NITROGEN 14 MG/DL (7-18); BUN/CREATININE RATIO 18.2 (5.4-32.0); CALCIUM 9.4 MG/DL (8.5-10.1); CHLORIDE 102 MMOL/L (99-107); CREATININE 0.77 MG/DL (0.60-1.10); GLUCOSE 90 MG/DL (70-104); POTASSIUM 4.1 MMOL/L (3.5-5.1); SODIUM 140 MMOL/L (135-145); TOTAL CARBON DIOXIDE 26.6 MMOL/L (24-32); TOTAL PROTEIN 7.4 G/DL (6.4-8.2); eGFR > 90 ML/MIN
[2021-04-24 21:56] LABS: ETHANOL < 0.010 GM/DL (0.0-0.010)
[2021-04-24] MEDS ORDERED: LORazepam 1 MG tablet PO ONE (22:10)
--- NOTE | 2021-04-24 22:44 | NUR ---
Packet sent to [facility]
--- NOTE | 2021-04-24 23:23 | NUR ---
JIMY CHRISTIE (MOTHER) [phone]
--- NOTE | 2021-04-25 00:08 | NUR ---
The patient appears to be sleeping
--- NOTE | 2021-04-25 01:08 | NUR ---
The patient appears to be sleeping
--- NOTE | 2021-04-25 02:22 | NUR ---
The patient appears to be sleeping
--- NOTE | 2021-04-25 04:29 | NUR ---
The patient appears to be sleeping
[2021-04-25 06:06] VITALS: BP 95/64
--- NOTE | 2021-04-25 07:00 | NUR ---
Received Pt awake and interupting RN change of shift report multiple times. Pt argumentative and manipulating words; Pt wants to smoke cigs and refusing Nicotine Lozenges or Patches.
[2021-04-25] MEDS: lithium carbonate 150mg capsule PO SCH (08:00)
[2021-04-25] MEDS: divalproex sod 250mg ER (24-hour) tablet PO SCH (08:00)
[2021-04-25] MEDS ORDERED: OLANZapine 5mg rapidly disint. tablet PO ONE (08:15)
[2021-04-25] MEDS ORDERED: LORazepam 1 MG tablet PO ONE (08:15)
[2021-04-25] MEDS ORDERED: diphenhydrAMINE 50 mg/ml inj IM ONE (08:50)
[2021-04-25] MEDS ORDERED: LORazepam 2 mg/ml vial IM ONE (08:50)
[2021-04-25] MEDS ORDERED: OLANZapine **IM** 10 mg inj. IM ONE (08:50)
--- NOTE | 2021-04-25 09:30 | NUR ---
Pt refused AM meds and continues to be intrusive and demang r/t smoking and going to a place that will give him what he wants. Pt response to all explanations is argumentative. Addendum: 04/25/21 at 1550 by DSALVATO Pt refused oral and IM prn medications and eloped from unit.
[2021-04-26] MEDS ORDERED: DIVA-74 PO (19:36)
[2021-04-26] MEDS ORDERED: LITH300C PO (19:36)
== END 2021-04-25 15:56 ==
LOC: ER 19:22
DX: F23 Brief psychotic disorder (principal); Z20.822 Contact with and (suspected) exposure to COVID-19; F41.9 Anxiety disorder, unspecified; F31.9 Bipolar disorder, unspecified; Z79.899 Other long term (current) drug therapy; Z88.8 Allergy status to other drugs, medicaments and biological substances
CPT/HCPCS: 36415; 80053; 80305; 80320; 81001; 84443; 85025; 87635; 99285; C9803

== ENCOUNTER 2021-04-26 18:45 | Emergency (ER) | payer MEDICARE, MEDICAID ==
[~2021-04-26] VITALS: Ht 185.4 cm; Wt 81.8 kg
[~2021-04-26 18:45] MED LIST changes: -CHOL100046 PO; -DIVA250T8 PO; -LITH600C PO; +NO HOME MEDS; -TRAZ-251 PO
[2021-04-26 19:01] VITALS: BP 152/95
[2021-04-26] MEDS ORDERED: DIVA-74 PO (19:36)
[2021-04-26] MEDS ORDERED: LITH300C PO (19:36)
== END 2021-04-27 02:29 | disposition left against medical advice (07) ==
LOC: ER 18:46
DX: F12.90 Cannabis use, unspecified, uncomplicated (principal); Z53.21 Procedure and treatment not carried out due to patient leaving prior to being seen by health care provider

== ENCOUNTER 2021-04-28 15:42 | Emergency (ER) | payer MEDICARE, MEDICAID ==
[~2021-04-28] VITALS: Ht 185.4 cm; Wt 73.5 kg
[~2021-04-28 15:42] MED LIST changes: +DIVA-74 PO; +LITH300C PO; -NO HOME MEDS
[2021-04-28 17:09] LABS: BASOPHILS % (AUTO) 0.3 % (0-1); EOSINOPHILS % (AUTO) 0.3 % (0-6); HEMATOCRIT 43.1 % (42.0-52.0); HEMOGLOBIN 14.8 g/dl (14.0-17.9); LYMPHOCYTES % (AUTO) 24.8 % (21-51); MEAN CORPUSCULAR HEMOGLOBIN 31.9 PG (27.0-31.0); MEAN CORPUSCULAR HGB CONC 34.5 g/dL (33.0-36.5); MEAN CORPUSCULAR VOLUME 92.5 FL (78-98); MEAN PLATELET VOLUME 8.1 FL (7.4-10.4); MONOCYTES # (AUTO) 0.8 X10'3 (0-0.9); MONOCYTES % (AUTO) 9.1 % (2-12); NEUTROPHILS # (AUTO) 5.4 X10'3 (1.8-7.7); NEUTROPHILS % (AUTO) 65.5 % (42-75); PLATELET COUNT 271 X10'3 (140-440); RED BLOOD COUNT 4.65 X10'6 (4.70-6.10); RED CELL DISTRIBUTION WIDTH 13.5 % (11.5-14.5); WHITE BLOOD COUNT 8.3 X10'3 (4.5-11.0)
[2021-04-28 17:25] LABS: ALANINE AMINOTRANSFERASE 39 U/L (12-78); ALBUMIN 4.6 G/DL (3.4-5.0); ALBUMIN/GLOBULIN RATIO 1.5 (1.1-1.5); ALKALINE PHOSPHATASE 52 IU/L (46-116); ANION GAP 9 (8-16); ASPARTATE AMINO TRANSFERASE 44 U/L (10-37); BILIRUBIN,TOTAL 0.5 MG/DL (0.1-1.0); BLOOD UREA NITROGEN 14 MG/DL (7-18); BUN/CREATININE RATIO 17.1 (5.4-32.0); CALCIUM 9.1 MG/DL (8.5-10.1); CHLORIDE 101 MMOL/L (99-107); CREATININE 0.82 MG/DL (0.60-1.10); GLUCOSE 95 MG/DL (70-104); POTASSIUM 3.9 MMOL/L (3.5-5.1); SODIUM 139 MMOL/L (135-145); TOTAL CARBON DIOXIDE 28.6 MMOL/L (24-32); TOTAL PROTEIN 7.7 G/DL (6.4-8.2); eGFR > 90 ML/MIN
[2021-04-28 17:27] LABS: ETHANOL < 0.010 GM/DL (0.0-0.010)
--- NOTE | 2021-04-28 17:39 | NUR ---
Patient has belongings in the ED OF [facility]. Patient left without belongings earlier in the week. Please make sure he gets his belongings.
[2021-04-28 18:18] LABS: COLOR,URINE YELLOW (Yellow); GLUCOSE, URINE NEGATIVE (Neg); KETONES,URINE NEGATIVE (Neg); LEUKOCYTE ESTERASE ,URINE NEGATIVE (Neg); NITRITES, URINE NEGATIVE (Neg); OCCULT BLOOD,URINE NEGATIVE (Neg); PROTEIN,URINE 100 mg/dl (Neg); UROBILINOGEN,URINE 0.2 E.U/dL (0.2-1.0)
[2021-04-28 18:19] LABS: CLARITY,URINE CLEAR (Clear); UA COLLECTION TYPE NON-SPECIFIED
[2021-04-28 18:22] LABS: URINE AMPHETAMINE SCREEN NEGATIVE (Neg); URINE BARBITUATE SCREEN NEGATIVE (Neg); URINE BENZODIAZEPINES SCREEN NEGATIVE (Neg); URINE CANNABINOID SCREEN POSITIVE (Neg); URINE COCAINE SCREEN NEGATIVE (Neg); URINE METHADONE SCREEN NEGATIVE (Neg); URINE OPIATE SCREEN NEGATIVE (Neg); URINE PHENCYCLIDINE SCREEN NEGATIVE (Neg)
[2021-04-28 18:35] LABS: BACTERIA,URINE NONE SEEN /HPF (Neg); MUCUS STRANDS NONE SEEN /LPF (Neg); RBC,URINE 0-2 /HPF (0-2); SQUAMOUS EPITHELIAL CELL,UR NONE SEEN /LPF (FEW); URIC ACID CRYSTALS FEW /HPF (NEGATIVE); WBC,URINE 0-4 /HPF (0-4)
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
[2021-04-28] MEDS ORDERED: LORazepam 2 mg/ml vial ONE (21:57)
[2021-04-28] MEDS ORDERED: divalproex sodium 500mg tablet.DR PO ONE (22:00)
[2021-04-28] MEDS ORDERED: LORazepam 2 mg/ml vial IM ONE (22:00)
[2021-04-28] MEDS ORDERED: OLANZapine **IM** 10 mg inj. IM ONE ×2 (22:00→22:45)
--- NOTE | 2021-04-28 23:09 | NUR ---
Patient arrived to [facility] with security. Pt initially refused to change into green scrubs. It was explained to patient that he had no choice. Pt came out of restroom and was brought to bed. with security pt laid down and was yelling at staff members. Pt given 20mg of Zyprexa and 10mg of ativan. pt refused 500mg of depakote and is making complaints about his arm thigh due to injections. Addendum: 04/29/21 at 0108 by FIGUEROA Pt received 2mg ativan not 10mg.
[2021-04-28 23:18] LABS: VALPROATE < 3.0 UG/ML (50-100)
--- NOTE | 2021-04-29 00:18 | NUR ---
Pt got up to use restroom, a little unsteady on his feet. Pt refused urine sample from tech. Pt went back to bed.
--- NOTE | 2021-04-29 02:56 | NUR ---
Pt sleeping in bed on right side, bed is disheveled due to pt turning.
--- NOTE | 2021-04-29 05:04 | NUR ---
Pt sleeping on back
--- NOTE | 2021-04-29 06:30 | NUR ---
PATIENT RECEIVED SLEEPING SUPINE IN BED UPON CHANGE OF SHIFT. RESPIRATIONS EVEN, UNLABORED. NO S/S OF DISTRESS. WILL CONTINUE TO MONITOR.
[2021-04-29] MEDS ORDERED: lithium carbonate 150mg capsule PO SCH (08:00)
--- NOTE | 2021-04-29 08:30 | NUR ---
PATIENT NOTED SITTING UP IN BED EATING BREAKFAST AT THIS TIME. NO S/S OF DISTRESS.
--- NOTE | 2021-04-29 10:00 | NUR ---
PACKET FAXED TO [facility] OFF[facility]
--- NOTE | 2021-04-29 11:00 | NUR ---
PATIENT NOTED HOVERING OVER THE NURSES STATION DESPITE CONSTANT REDIRECTION BACK TO HIS ROOM. 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 PATIENT NOTED VERBALIZING GRANDIOSE DELUSIONS AND BEING INTRUSIVE TOWARD STAFF AT THIS TIME.
[2021-04-29] MEDS ORDERED: diphenhydrAMINE 50 mg/ml inj IM ONE (11:10)
[2021-04-29] MEDS ORDERED: LORazepam 2 mg/ml vial IM ONE (11:10)
--- NOTE | 2021-04-29 11:20 | NUR ---
PATIENT ENDORSED THAT HE IS GOING TO GET OUT OF HERE NOTED PACING BACK AND FORTH OUT OF HIS ROOM AND THE NURSES STATION. PATIENT NOTED TO BE ANXIOUS AEB PACING AND THREATENING TO [facility]. PATIENT REFUSING TO STAY IN HIS ROOM. DR. VARNER NOTIFIED WITH ONE TIME ORDER OF IM ATIVAN AND IM BENADRYL PRESCRIBED. IM MEDICATIONS GIVEN AT APPROXIMATELY 1118 WITH SECURITY AT BEDSIDE. PATIENT CONTINUES PACING IN HIS ROOM AT THIS TIME. WILL CONTINUE TO MONITOR.
--- NOTE | 2021-04-29 13:30 | NUR ---
PATIENT OBSERVED SLEEPING IN BED AT THIS TIME ON HIS RIGHT SIDE. RESPIRATIONS EVEN, UNLABORED. NO S/S OF DISTRESS. WILL CONTINUE TO MONITOR.
--- NOTE | 2021-04-29 14:57 | NUR ---
RECEIVED CALL FROM [facility] OFFICE THAT PATIENT HAS BEEN ACCEPTED TO [facility]. ADMITTING DOCTOR IS DR. TANNER. PATIENT ACCEPTED AT 1415. TO BE PICKED UP BY [facility] ETHYLBENZENE CONVERTER OPERATOR AT APPROXIMATELY 1800 TONIGHT.
--- NOTE | 2021-04-29 15:30 | NUR ---
PATIENT AWOKE TO EAT HIS LUNCH TRAY. HE THEN RETREATED BACK TO SLEEP. NO CHANGES NOTED AT THIS TIME.
--- NOTE | 2021-04-29 17:30 | NUR ---
PATIENT OBSERVED HOVERING OVER THE NURSES STATION AT THIS TIME. HE WAS INFORMED OF ACCEPTANCE TO [facility]. PATIENT APPEARS TO BE HOPEFUL FOR PLACEMENT AT NEW FACILITY.
[2021-04-29 18:39] VITALS: BP 149/79
== END 2021-04-29 18:41 ==
LOC: ER 15:43
DX: F22 Delusional disorders (principal); Z20.822 Contact with and (suspected) exposure to COVID-19; F31.9 Bipolar disorder, unspecified; F41.9 Anxiety disorder, unspecified; F20.9 Schizophrenia, unspecified; F12.90 Cannabis use, unspecified, uncomplicated; Z98.890 Other specified postprocedural states; Z88.8 Allergy status to other drugs, medicaments and biological substances; Z79.899 Other long term (current) drug therapy
CPT/HCPCS: 36415; 80053; 80164; 80178; 80305; 80320; 81001; 84443; 85025; 87635; 96372; 99285; C9803; J1200; J2060; J3490

== ENCOUNTER 2021-05-17 01:39 | Emergency (ER) | payer MEDICARE, MEDICAID ==
[~2021-05-17] VITALS: Ht 185.4 cm; Wt 90.9 kg
[2021-05-17] MEDS ORDERED: LORazepam 2 mg/ml vial IM ONE (02:30)
[2021-05-17] MEDS ORDERED: haloperidol lactate 5mg/ml inj IM ONE (02:30)
[2021-05-17] MEDS ORDERED: diphenhydrAMINE 50 mg/ml inj IM ONE (02:30)
[2021-05-17 02:54] LABS: BASOPHILS % (AUTO) 0.3 % (0-1); EOSINOPHILS % (AUTO) 0.3 % (0-6); HEMATOCRIT 42.6 % (42.0-52.0); HEMOGLOBIN 14.6 g/dl (14.0-17.9); LYMPHOCYTES # (AUTO) 2.2 X10'3 (1.1-4.8); LYMPHOCYTES % (AUTO) 19.2 % (21-51); MEAN CORPUSCULAR HEMOGLOBIN 31.6 PG (27.0-31.0); MEAN CORPUSCULAR HGB CONC 34.2 g/dL (33.0-36.5); MEAN CORPUSCULAR VOLUME 92.2 FL (78-98); MEAN PLATELET VOLUME 8.2 FL (7.4-10.4); MONOCYTES % (AUTO) 8.9 % (2-12); NEUTROPHILS # (AUTO) 8.1 X10'3 (1.8-7.7); NEUTROPHILS % (AUTO) 71.3 % (42-75); PLATELET COUNT 287 X10'3 (140-440); RED BLOOD COUNT 4.62 X10'6 (4.70-6.10); RED CELL DISTRIBUTION WIDTH 13.2 % (11.5-14.5); WHITE BLOOD COUNT 11.3 X10'3 (4.5-11.0)
[2021-05-17 03:09] LABS: URINE AMPHETAMINE SCREEN NEGATIVE (Neg); URINE BARBITUATE SCREEN NEGATIVE (Neg); URINE BENZODIAZEPINES SCREEN NEGATIVE (Neg); URINE CANNABINOID SCREEN POSITIVE (Neg); URINE COCAINE SCREEN NEGATIVE (Neg); URINE METHADONE SCREEN NEGATIVE (Neg); URINE OPIATE SCREEN NEGATIVE (Neg); URINE PHENCYCLIDINE SCREEN NEGATIVE (Neg)
[2021-05-17 03:10] LABS: ALANINE AMINOTRANSFERASE 38 U/L (12-78); ALBUMIN 4.3 G/DL (3.4-5.0); ALBUMIN/GLOBULIN RATIO 1.2 (1.1-1.5); ALKALINE PHOSPHATASE 54 IU/L (46-116); ANION GAP 8 (8-16); ASPARTATE AMINO TRANSFERASE 39 U/L (10-37); BILIRUBIN,TOTAL 0.3 MG/DL (0.1-1.0); BLOOD UREA NITROGEN 18 MG/DL (7-18); BUN/CREATININE RATIO 21.7 (5.4-32.0); CALCIUM 9.2 MG/DL (8.5-10.1); CHLORIDE 105 MMOL/L (99-107); CREATININE 0.83 MG/DL (0.60-1.10); ETHANOL < 0.010 GM/DL (0.0-0.010); GLUCOSE 93 MG/DL (70-104); POTASSIUM 3.5 MMOL/L (3.5-5.1); SODIUM 143 MMOL/L (135-145); TOTAL CARBON DIOXIDE 29.7 MMOL/L (24-32); TOTAL PROTEIN 7.9 G/DL (6.4-8.2); eGFR > 90 ML/MIN
--- NOTE | 2021-05-17 07:01 | NUR ---
Pt laying quietly on R side, effortless respirations observed.
--- NOTE | 2021-05-17 08:00 | NUR ---
Pt resting with eyes closed, pt observed repositioning self.
[2021-05-17 08:43] VITALS: BP 130/69
--- NOTE | 2021-05-17 08:45 | NUR ---
VSs taken, pt breakfast tray set up at bedside and pt updated on plan of care.
--- NOTE | 2021-05-17 09:09 | NUR ---
Sonia Wagner being notified.
--- NOTE | 2021-05-17 09:10 | NUR ---
ED MD Dr. Alfaro informed of pts elopement.
--- NOTE | 2021-05-17 09:20 | NUR ---
PT ELOPED OUT OF THER ER THROUGH THE AMBULANCE BAY DOOR AFTER AMBULANCE ARRIVAL. [facility] CALLED, NOTIFIED THAT PT IS IN [facility] AND IS IN FRONT OF [facility]. Addendum: 05/17/21 at 0940 by JAKUB CARLITOS QUICK CALLED, STATES THAT OFFICERS MADE CONTACT WITH PT AND THAT HE WAS "PERFECTLY FINE" AND WOULD NOT BE RETUNING HIM ON THE 5149. DISPATCH WAS INFORMED THAT THE PT'S BELONGINGS WERE STILL IN [place] AND THAT IF HE WANTED THEM PT WOUND HAVE TO RETURN TO GET THEM. DISPATCH STATED THAT IF THE OFFICERS WERE STILL WITH PT THEY WOULD BE INFORMED.
== END 2021-05-17 09:47 | disposition left against medical advice (07) ==
LOC: ER 01:40
DX: F29 Unspecified psychosis not due to a substance or known physiological condition (principal); Z20.822 Contact with and (suspected) exposure to COVID-19; F41.9 Anxiety disorder, unspecified; F31.9 Bipolar disorder, unspecified; F20.9 Schizophrenia, unspecified; F12.90 Cannabis use, unspecified, uncomplicated; Z88.8 Allergy status to other drugs, medicaments and biological substances; Z79.899 Other long term (current) drug therapy
CPT/HCPCS: 36415; 80053; 80305; 80320; 85025; 87635; 96372; 99284; C9803; J1200; J1630; J2060

== ENCOUNTER 2021-05-18 12:17 | Emergency (ER) | payer MEDICARE, MEDICAID ==
[~2021-05-18] VITALS: Ht 182.9 cm; Wt 81.8 kg
--- NOTE | 2021-05-18 12:31 | NUR ---
PT HAS GIVEN PERMISSION FOR HIS MOTHER; JIMY LOUIS AND HIS SISTER, ODALIS GRANT TO RECEIVE INFORMATION REGARDING PT'S CURRENT VISIT. MOTHER: JIMY CHRISTIE SISTER: JOEL GRANT
[2021-05-18 12:52] LABS: BASOPHILS # (AUTO) 0.1 X10'3 (0-0.2); BASOPHILS % (AUTO) 0.4 % (0-1); EOSINOPHILS % (AUTO) 0.3 % (0-6); HEMATOCRIT 40.7 % (42.0-52.0); LYMPHOCYTES % (AUTO) 16.6 % (21-51); MEAN CORPUSCULAR HEMOGLOBIN 31.5 PG (27.0-31.0); MEAN CORPUSCULAR HGB CONC 34.3 g/dL (33.0-36.5); MEAN CORPUSCULAR VOLUME 91.8 FL (78-98); MEAN PLATELET VOLUME 8.1 FL (7.4-10.4); MONOCYTES # (AUTO) 1.1 X10'3 (0-0.9); MONOCYTES % (AUTO) 9.3 % (2-12); NEUTROPHILS # (AUTO) 8.8 X10'3 (1.8-7.7); NEUTROPHILS % (AUTO) 73.4 % (42-75); PLATELET COUNT 308 X10'3 (140-440); RED BLOOD COUNT 4.43 X10'6 (4.70-6.10); RED CELL DISTRIBUTION WIDTH 12.7 % (11.5-14.5)
[2021-05-18 13:06] LABS: ALANINE AMINOTRANSFERASE 41 U/L (12-78); ALBUMIN/GLOBULIN RATIO 1.1 (1.1-1.5); ALKALINE PHOSPHATASE 60 IU/L (46-116); ANION GAP 5 (8-16); ASPARTATE AMINO TRANSFERASE 64 U/L (10-37); BILIRUBIN,TOTAL 0.4 MG/DL (0.1-1.0); BLOOD UREA NITROGEN 24 MG/DL (7-18); BUN/CREATININE RATIO 32.9 (5.4-32.0); CALCIUM 8.9 MG/DL (8.5-10.1); CHLORIDE 105 MMOL/L (99-107); CREATININE 0.73 MG/DL (0.60-1.10); GLUCOSE 81 MG/DL (70-104); POTASSIUM 3.6 MMOL/L (3.5-5.1); SODIUM 141 MMOL/L (135-145); TOTAL CARBON DIOXIDE 31.4 MMOL/L (24-32); TOTAL PROTEIN 7.5 G/DL (6.4-8.2); eGFR > 90 ML/MIN
[2021-05-18 13:07] LABS: CLARITY,URINE CLOUDY (Clear); COLOR,URINE YELLOW (Yellow); GLUCOSE, URINE NEGATIVE (Neg); KETONES,URINE 15 mg/dl (Neg); LEUKOCYTE ESTERASE ,URINE NEGATIVE (Neg); NITRITES, URINE NEGATIVE (Neg); OCCULT BLOOD,URINE NEGATIVE (Neg); PH,URINE 5.5 (4.8-8.0); PROTEIN,URINE TRACE mg/dl (Neg); UROBILINOGEN,URINE 0.2 E.U/dL (0.2-1.0)
[2021-05-18 13:09] LABS: UA COLLECTION TYPE CLN CATCH MIDSTREAM
[2021-05-18 13:11] LABS: URINE AMPHETAMINE SCREEN NEGATIVE (Neg); URINE BARBITUATE SCREEN NEGATIVE (Neg); URINE BENZODIAZEPINES SCREEN NEGATIVE (Neg); URINE CANNABINOID SCREEN POSITIVE (Neg); URINE COCAINE SCREEN NEGATIVE (Neg); URINE METHADONE SCREEN NEGATIVE (Neg); URINE OPIATE SCREEN NEGATIVE (Neg); URINE PHENCYCLIDINE SCREEN NEGATIVE (Neg)
[2021-05-18 13:15] LABS: ETHANOL < 0.010 GM/DL (0.0-0.010)
[2021-05-18 13:16] LABS: MUCUS STRANDS MODERATE /LPF (Neg); SPERM MANY /HPF (NEGATIVE); SQUAMOUS EPITHELIAL CELL,UR MANY /LPF (FEW)
[2021-05-18 13:17] LABS: BACTERIA,URINE 1+ /HPF (Neg); RBC,URINE 0-2 /HPF (0-2); WBC,URINE 0-4 /HPF (0-4)
--- NOTE | 2021-05-18 13:21 | NUR ---
PT HAVING MANIC EPISODE CALLING HIMSELF A MONKEY AND MAKING ANIMAL NOISES. PT RUNNING OUT OF ROOM AND OUT FRONT DOOR RN UNABLE TO STOP PATIENT SECURITY CALLED
--- NOTE | 2021-05-18 13:45 | NUR ---
CALLED [facility] AND NOTIFIED THEM THAT THE PT ELOPED
--- NOTE | 2021-05-18 15:23 | NUR ---
PT WAS FOUND AND BROUGHT BACK BY [facility] CRIS[facility] OFFICER. OFFICER IS STANDING BY WITH PT UNTIL A ROOM BECOMES AVAILABLE. PT'S MOTHER IS OUTSIDE "KEEPING WATCH" INCASE PT TRIES TO ELOPE AGAIN
[2021-05-18] MEDS ORDERED: OLANZapine **IM** 10 mg inj. IM ONE (16:40)
[2021-05-18] MEDS ORDERED: diphenhydrAMINE 50 mg/ml inj IM ONE (16:40)
--- NOTE | 2021-05-18 17:02 | NUR ---
pt placed in roon zyprexa and benadryl given IM
--- NOTE | 2021-05-18 18:16 | NUR ---
PACKET FAXED TO [facility].
--- NOTE | 2021-05-18 19:03 | NUR ---
updated larry in regards to patient condition
[2021-05-19] MEDS ORDERED: LORazepam 1 MG tablet PO ONE ×2 (00:10→23:00)
[2021-05-19] MEDS ORDERED: diphenhydrAMINE 25 MG/10 ML UD oral solution PO ONE (00:10)
--- NOTE | 2021-05-19 00:25 | NUR ---
PT GIVEN PO ATIVAN AND BENADRYL FOR SLEEP. PT WAS PACING BACK AND FORTH IN HIS ROOM REQUESTING SOMETHING FOR ANXIETY AND AGITATION. ABDIFATAH CHURCH NOTIFIED AND ORDERS PUT IN. PT COOPERATIVE AND RESPECTFUL. WARM FLUIDS AND CHICKEN BROTH GIVEN
--- NOTE | 2021-05-19 06:30 | NUR ---
Pt on a 5150 hold that began 05/18/21 at 12:01. Pt eloped from [facility] hold and was making non-sensical statements.
--- NOTE | 2021-05-19 07:00 | NUR ---
Pt wanted to wash his feet and new underwear. He was given bath wipes and hospital underwear.
--- NOTE | 2021-05-19 07:45 | NUR ---
Pt was given the telephone for a call.
--- NOTE | 2021-05-19 08:00 | NUR ---
Pt asked for breakfast and coffee. I informed him that the coffee will come with breakfast. Then he stated, "You mean I can't even have fucking warm water?" I let him know that his response was not appropriate.
--- NOTE | 2021-05-19 08:10 | NUR ---
Given his breakfast tray.
--- NOTE | 2021-05-19 08:31 | NUR ---
Pt apolgized for his harsh words.
--- NOTE | 2021-05-19 08:45 | NUR ---
Pt began asking multiple staff members for a phone. He was reminded that he has already used the phone this morning and that the phone is a privledge.
--- NOTE | 2021-05-19 08:56 | NUR ---
Charge nurse in to speak with pt.
[2021-05-19] MEDS ORDERED: LORazepam 2 mg/ml vial IM ONE (09:40)
[2021-05-19] MEDS ORDERED: diphenhydrAMINE 50 mg/ml inj IM ONE (09:40)
[2021-05-19] MEDS ORDERED: LORazepam 2 mg/ml vial ONE (09:43)
[2021-05-19] MEDS ORDERED: diphenhydrAMINE 50 mg/ml inj ONE (09:43)
--- NOTE | 2021-05-19 09:45 | NUR ---
Pt is aggitated and having strong words with the pt in the next room. He frequently stands at the open door peers down the choe.
--- NOTE | 2021-05-19 10:47 | NUR ---
Spoke with pt's mother, Tiffanie and given an update.
--- NOTE | 2021-05-19 13:22 | NUR ---
Pt given lunch. Pt asked for an extra lunch. He was given an extra entre.
--- NOTE | 2021-05-19 16:14 | NUR ---
Pt was allowed to make a short phone call. He called his mother. During his call, he became agitated, loud, and used profanity.
--- NOTE | 2021-05-19 21:38 | NUR ---
PT ATE SANDWHICH AND DRANK JUICE. PT SITS ON A BLANKET IN MEDITATIVE POSITION.
--- NOTE | 2021-05-19 22:30 | NUR ---
PT AWAKE READING A BOOK QUIETLEY
[2021-05-19] MEDS: NICOTINE POLACRILEX 2 MG LOZENGE BC PRN (23:09)
--- NOTE | 2021-05-19 23:10 | NUR ---
pt is anxious, ativan 1mg PO and a prn nicotine forrest.
--- NOTE | 2021-05-20 01:00 | NUR ---
gave pt sandwhich and juice, pt ate both. used the restroom
--- NOTE | 2021-05-20 02:15 | NUR ---
Pt is hyperverbal and making delusional statements about trap houses, pineal glands, superhuman abilities. Pt is easily direactable
--- NOTE | 2021-05-20 04:23 | NUR ---
pt sleeping on back, respirations wnl
--- NOTE | 2021-05-20 06:22 | NUR ---
Report received. Patient paces, does rapid karate moves, fidgets with bedding, and speaks to himself rapidly. Patient is asked to go back to his area due to giving report/HIPPAA concerns at the desk. He follows directions w/o incident.
[2021-05-20] MEDS: NICOTINE POLACRILEX 2 MG LOZENGE BC PRN ×3 (06:49→14:07)
--- NOTE | 2021-05-20 06:57 | NUR ---
Patient has been playing with his hospital bracelet and it becomes damaged/removed. He comes to the desk to a request a new one. admitting is called and brings new one over which is applied. Patient asks for nicotine drop and is given one. Patient is grateful and pleasant.
--- NOTE | 2021-05-20 08:04 | NUR ---
Patient continues to act in a bizarre manner, walking, talking, meditating, reading the bible, doing karate, and speaking with staff. He remains pleasant at this time. His mother, Tiffanie Solis, calls for an update and states that she will probably spend the day in the parking lot again to watch for his eloping.
--- NOTE | 2021-05-20 09:10 | NUR ---
PATIENT RECEIVED MEDITATING AND EXERCISING IN HIS ROOM ACTING IN A BIZARRE MANNER. PATIENT IS PLEASANT AND COOPERATIVE WITH CARE. A&O X4 WITH NO S/S OF DISTRESS. HE PRESENTS PLAYFUL AND DISORGANZIED. WILL CONTINUE TO MONITOR.
[2021-05-20] MEDS: LORazepam 1 MG tablet PO PRN ×2 (10:28→14:07)
--- NOTE | 2021-05-20 11:00 | NUR ---
PATIENT IS OBSERVED PACING IN HIS ROOM, OBSERVED "AIR-PUNCHING" AND PRACTICING KARATE INTERMITTENTLY. HE WAS GIVEN PRN ATIVAN AT 1028. PATIENT NOTED MAKING COUNTLESS PHONE CALL'S THROUGHOUT THE MORNING. NO COMPLAINTS OR CHANGES NOTED AT THIS TIME.
--- NOTE | 2021-05-20 12:59 | NUR ---
PATIENT NOTED TO BE ON THE PHONE WITH HIS MOTHER MAKING THREATENING STATEMENTS TOWARD HER. PATIENT ENDORSING THAT SHE "BETTER TELL THE SOCIAL WORKERS WHAT THEY WANT TO HEAR SO HE CAN GET OUT OF HERE" AND THAT SHE "BETTER GET HIM OUT OF HERE OR HE WILL WALK OUT ON HIS OWN". PATIENT NOTED TO BE VERBALLY ABUSIVE AND THREATENING, NOTED CUSSING AND STATING "FUING TRY AND LEAVE ME HERE".
--- NOTE | 2021-05-20 14:00 | NUR ---
Pt. on the telephone with his family at this time, agitated, he is fixated on leaving and reports his mental health hold is up today depite education from staff and his family that it is not up until tomorrow. Will continue to monitor.
--- NOTE | 2021-05-20 14:10 | NUR ---
PATIENT NOTED TO BE IRRITABLE AFTER GETTING OFF THE PHONE WITH A FAMILY MEMBER. PATIENT STATING "THIS WHOLE TOWN IS FB[place]BARA CORRUPT" AND THAT HE IS "NOT GOING TO BE RAISED BY ONE THOUSAND YEAR OLD FBARBARA GYPSIES." PATIENT GIVEN PRN ATIVAN 1MG PO. HE IS OBSERVED PACING AND AIR-PUNCHING IN HIS ROOM AT THIS TIME PRETENDING TO PUNCH THE WALL. WILL CONTINUE TO MONITOR.
[2021-05-20] MEDS ORDERED: OLANZapine 5mg rapidly disint. tablet PO ONE ×2 (14:55→21:00)
--- NOTE | 2021-05-20 16:00 | NUR ---
PATIENT OBSERVED SLEEPING IN BED AT THIS TIME. RESPIRATIONS EVEN, UNLABORED. NO S/S OF DISTRESS.
--- NOTE | 2021-05-20 17:00 | NUR ---
PATIENTS MOTHER HAS CALLED TO CHECK IN ON PATIENT SEVERAL TIMES THROUGHOUT THE DAY. SHE HAS BEEN SITTING IN THE ER PARKING LOT IN HER CAR FOR THE LAST TWO DAYS IN CASE PATIENT ELOPES AGAIN FROM HOSPITAL. SHE REQUESTS THAT STAFF NOTIFY HER IMMEDIATELY IF PATIENT ELOPES FROM THE HOSPITAL.
--- NOTE | 2021-05-20 17:10 | NUR ---
PATIENT IS OBSERVED WALKING TO AND FROM THE NURSES STATION CONSTANTLY ASKING FOR THE PHONE OR SOMETHING TO EAT. HE IS EASILY REDIRECTABLE BACK TO HIS ROOM. PATIENT NOTED TO BE ON THE PHONE WITH A FAMILY MEMBER AT THIS TIME. NO S/S OF DISTRESS. WILL CONTINUE TO MONITOR.
--- NOTE | 2021-05-20 18:30 | NUR ---
Pt was on the phone with family, berating them at shift change. He calmed down to eat dinner and is pleasant with staff. pt ate all food on tray.
--- NOTE | 2021-05-20 19:50 | NUR ---
pt lays down and closes his eyes and falls asleep quickly.
--- NOTE | 2021-05-20 21:17 | NUR ---
pt sleeping on back respirations even and unlabored
--- NOTE | 2021-05-20 22:00 | NUR ---
PT TOOK HS ZYPREXA. HE STATES "I DON'T WANT TO BE TAKING THIS, THE DOCTORS ARE STUPID, BUT I WILL TAKE IT."
--- NOTE | 2021-05-21 00:30 | NUR ---
pt awake, trying to stand up at nursing station and talk to nurses and tell them stories. Pt told to please go back to bed, which he does.
--- NOTE | 2021-05-21 00:45 | NUR ---
pt doing karate by his bed with a pillow case on as a bandana.
--- NOTE | 2021-05-21 02:00 | NUR ---
pt asleep on back, respirations WNL
--- NOTE | 2021-05-21 04:35 | NUR ---
pt asleep on L side, rr 14
[2021-05-21] MEDS: NICOTINE POLACRILEX 2 MG LOZENGE BC PRN ×4 (06:42→16:46)
[2021-05-21 08:42] VITALS: BP 130/86
[2021-05-21] MEDS: LORazepam 1 MG tablet PO PRN (09:16)
--- NOTE | 2021-05-21 14:17 | NUR ---
Pt has been accepted at [facility] by Dr. Fallon today ar 1420.
== END 2021-05-21 18:09 ==
LOC: ER 12:18
DX: R44.0 Auditory hallucinations (principal); Z20.822 Contact with and (suspected) exposure to COVID-19; F41.9 Anxiety disorder, unspecified; F31.9 Bipolar disorder, unspecified; F17.200 Nicotine dependence, unspecified, uncomplicated; F12.90 Cannabis use, unspecified, uncomplicated; Z79.899 Other long term (current) drug therapy
CPT/HCPCS: 36415; 80053; 80305; 80320; 81001; 84443; 85025; 96372; 99285; J1200; J2060; J3490; Q0163

== ENCOUNTER 2021-07-31 17:38 | Emergency (ER) | payer MEDICARE, MEDICAID ==
[~2021-07-31] VITALS: Ht 185.4 cm; Wt 70.0 kg
[2021-07-31 18:36] LABS: BASOPHILS % (AUTO) 0.5 % (0-1); EOSINOPHILS # (AUTO) 0.2 X10'3 (0-0.9); EOSINOPHILS % (AUTO) 2.5 % (0-6); HEMATOCRIT 43.7 % (42.0-52.0); HEMOGLOBIN 15.1 g/dl (14.0-17.9); LYMPHOCYTES # (AUTO) 2.2 X10'3 (1.1-4.8); LYMPHOCYTES % (AUTO) 28.5 % (21-51); MEAN CORPUSCULAR HEMOGLOBIN 31.5 PG (27.0-31.0); MEAN CORPUSCULAR HGB CONC 34.5 g/dL (33.0-36.5); MEAN CORPUSCULAR VOLUME 91.3 FL (78-98); MEAN PLATELET VOLUME 7.7 FL (7.4-10.4); MONOCYTES # (AUTO) 0.9 X10'3 (0-0.9); MONOCYTES % (AUTO) 11.6 % (2-12); NEUTROPHILS # (AUTO) 4.4 X10'3 (1.8-7.7); NEUTROPHILS % (AUTO) 56.9 % (42-75); PLATELET COUNT 222 X10'3 (140-440); RED BLOOD COUNT 4.79 X10'6 (4.70-6.10); WHITE BLOOD COUNT 7.7 X10'3 (4.5-11.0)
[2021-07-31 18:51] LABS: ALANINE AMINOTRANSFERASE 34 U/L (12-78); ALBUMIN 3.9 G/DL (3.4-5.0); ALBUMIN/GLOBULIN RATIO 1.1 (1.1-1.5); ALKALINE PHOSPHATASE 59 IU/L (46-116); ANION GAP 11 (8-16); ASPARTATE AMINO TRANSFERASE 26 U/L (10-37); BILIRUBIN,TOTAL 0.2 MG/DL (0.1-1.0); BLOOD UREA NITROGEN 13 MG/DL (7-18); BUN/CREATININE RATIO 15.9 (5.4-32.0); CALCIUM 8.8 MG/DL (8.5-10.1); CHLORIDE 106 MMOL/L (99-107); CREATININE 0.82 MG/DL (0.60-1.10); ETHANOL < 0.010 GM/DL (0.0-0.010); GLUCOSE 94 MG/DL (70-104); POTASSIUM 4.3 MMOL/L (3.5-5.1); SODIUM 144 MMOL/L (135-145); TOTAL CARBON DIOXIDE 26.7 MMOL/L (24-32); TOTAL PROTEIN 7.6 G/DL (6.4-8.2); eGFR > 90 ML/MIN
--- NOTE | 2021-07-31 19:22 | NUR ---
Pt triaged, ua collected and labeled, walked spec to lab. Pt pink, alert, no acute/resp distress.
[2021-07-31 19:38] LABS: URINE AMPHETAMINE SCREEN NEGATIVE (Neg); URINE BARBITUATE SCREEN NEGATIVE (Neg); URINE BENZODIAZEPINES SCREEN NEGATIVE (Neg); URINE CANNABINOID SCREEN POSITIVE (Neg); URINE COCAINE SCREEN NEGATIVE (Neg); URINE METHADONE SCREEN NEGATIVE (Neg); URINE OPIATE SCREEN NEGATIVE (Neg); URINE PHENCYCLIDINE SCREEN NEGATIVE (Neg)
[2021-07-31 19:43] LABS: CLARITY,URINE SLIGHTLY CLOUDY (Clear); COLOR,URINE YELLOW (Yellow); GLUCOSE, URINE NEGATIVE (Neg); KETONES,URINE NEGATIVE (Neg); LEUKOCYTE ESTERASE ,URINE NEGATIVE (Neg); NITRITES, URINE NEGATIVE (Neg); OCCULT BLOOD,URINE NEGATIVE (Neg); PH,URINE 7.5 (4.8-8.0); PROTEIN,URINE NEGATIVE (Neg); UROBILINOGEN,URINE 0.2 E.U/dL (0.2-1.0)
[2021-07-31 19:45] LABS: UA COLLECTION TYPE CLN CATCH MIDSTREAM
[2021-07-31 19:55] LABS: AMORPHOUS PHOSPHATES 3+; BACTERIA,URINE NONE SEEN /HPF (Neg); MUCUS STRANDS NONE SEEN /LPF (Neg); RBC,URINE NONE SEEN /HPF (0-2); SQUAMOUS EPITHELIAL CELL,UR NONE SEEN /LPF (FEW); WBC,URINE 0-4 /HPF (0-4)
--- NOTE | 2021-07-31 21:25 | NUR ---
Pt sleeping, pink, no acute/resp distress. Bed in lowest position, wheels locked, rail 1/2 up. Pt has been cooperative and pleasant to interact with so far.
--- NOTE | 2021-08-01 00:40 | NUR ---
Patient's packet was sent to [facility]...
--- NOTE | 2021-08-01 01:58 | NUR ---
Pt sleeping, pink, no acute/resp distress. Bed in lowest position, wheels locked, rail 1/2 up. Pt has been cooperative and pleasant to interact with so far.
--- NOTE | 2021-08-01 04:13 | NUR ---
Josué de leon in ED - 08/01/21 at 0414 by [email or web address] Pt pink, alert, walking around dept. Pt redirected to room Pt has to be reminded of his limitations.
--- NOTE | 2021-08-01 04:21 | NUR ---
Bed in lowest position, rail 2/2 up, call singh in reach, wheels locked. Pt. laying supine, pt able to reposition prn.
--- NOTE | 2021-08-01 05:53 | NUR ---
Pt pink, alert, no acute/resp distress. Pt supine, moves self PRN for comfort. Bed in lowest position, wheels locked, rail 2/2 up, call singh in reach. Handoff report to dayshift RN
[2021-08-01] MEDS ORDERED: NO HOME MEDS (08:01)
--- NOTE | 2021-08-01 19:07 | NUR ---
The patient has been hyperverbal. He has made a call to his mother and berated her for not doing what he feels he needs. He is stating he does not want to go to [place] and that "I'm super intelligent" He stated he did not want or need treatment. His mood is easily agitated. He is very manipulative and entitled.
--- NOTE | 2021-08-01 20:15 | NUR ---
The patient presents as calmer than at the start of the shift. He did tell staff that he no longer wants or needs treatment and he wants to be discharged from the ER. He told staff that he is going to run when taken out of the ER to the [facility] transport vehicle. Security staff were made aware. [facility] was made aware and spoke with Mindy. ER primer charger was also made aware.
--- NOTE | 2021-08-01 21:07 | NUR ---
The patient appears to be sleeping
--- NOTE | 2021-08-01 22:01 | NUR ---
The patient appears to be sleeping
--- NOTE | 2021-08-01 23:10 | NUR ---
The patient appears to be sleeping
--- NOTE | 2021-08-02 00:14 | NUR ---
The patient appears to be sleeping
--- NOTE | 2021-08-02 01:23 | NUR ---
Patient awake asked if he could have same juice ? Patient was given juice .Patient sitting on the of bed soaking his feet.
--- NOTE | 2021-08-02 03:06 | NUR ---
THe patient appears to be sleeping
--- NOTE | 2021-08-02 04:24 | NUR ---
THe patient up to the nursing station and requesting food items which were given to him
[2021-08-02 05:35] VITALS: BP 122/69
--- NOTE | 2021-08-02 05:47 | NUR ---
The patient is currently resting on his bed.
--- NOTE | 2021-08-02 06:23 | NUR ---
Patient sleeping prone. No distress observed. Continue to monitor.
--- NOTE | 2021-08-02 08:20 | NUR ---
Patient up and at the nurse's station angry and manic. Patient takes no responsibility for his behavior. Patient disparaging staff. (Patient knows staff from being conserved in [facility]). Patient asked to step away and agruing with staff. Continue to monitor.
[2021-08-02] MEDS ORDERED: ziprasidone IM 20mg inj **IM only IM ONE (08:35)
--- NOTE | 2021-08-02 08:49 | NUR ---
Patient continued to with anger and non-stop talking. Patient was not following commands and RN received an order for Geodon I.M. Patient started telling RN than he is allergic to Geodon. RN had already looked at his allergy list and Geodon was not listed. Patient is still talking non-stop. Continue to monitor.
--- NOTE | 2021-08-02 09:25 | NUR ---
Patient was asleep and RN awoke patient and gave him a clean sweat shirt and clean sweat pants. Patient ambulatory to BR to change. Steady gait.
== END 2021-08-02 09:35 ==
LOC: ER 17:39
DX: R45.851 Suicidal ideations (principal); Z20.822 Contact with and (suspected) exposure to COVID-19; R45.850 Homicidal ideations; F29 Unspecified psychosis not due to a substance or known physiological condition; F41.9 Anxiety disorder, unspecified; F31.9 Bipolar disorder, unspecified; F20.9 Schizophrenia, unspecified; F17.200 Nicotine dependence, unspecified, uncomplicated; F12.90 Cannabis use, unspecified, uncomplicated; Z88.8 Allergy status to other drugs, medicaments and biological substances
CPT/HCPCS: 36415; 80053; 80305; 80320; 81001; 85025; 87635; 96372; 99285; C9803; J3486

== ENCOUNTER 2021-12-12 15:05 | Emergency (ER) | payer MEDICARE, MEDICAID ==
[~2021-12-12 15:05] MED LIST changes: -DIVA-74 PO; -LITH300C PO; +NO HOME MEDS
== END 2021-12-12 15:22 | disposition home or self-care (01) ==
LOC: ER 15:05
DX: Z00.8 Encounter for other general examination (principal); F41.9 Anxiety disorder, unspecified; F31.9 Bipolar disorder, unspecified; F20.9 Schizophrenia, unspecified; F12.90 Cannabis use, unspecified, uncomplicated; Z78.1 Physical restraint status; Z88.8 Allergy status to other drugs, medicaments and biological substances; Z98.890 Other specified postprocedural states
CPT/HCPCS: 99283